=== PATIENT | female | born 1940 | race Caucasian/White ===

== ENCOUNTER 2017-04-18 12:43 | Inpatient (IN) | payer MEDICARE ==
[~2017-04-18 12:43] MED LIST: BREVIBLOC 100 MG/10 ML IV ONE; DIPRIVAN 200 MG/20 ML IV ONE; MORPHINE SULFATE 10 MG/ML IV ONE; PHENYLEPHRINE HCL IV ONE; Quelicin Fliptop 200 MG/10 ML IV ONE; SUBLIMAZE 100 MCG/2 ML IV ONE; Zemuron 100 MG/10 ML IV ONE
[2017-04-18] MEDS ORDERED: Sodium Chloride 0.9% 1000 ML 1,000 ML IV STA (13:27)
--- NOTE | 2017-04-18 13:33 | ERPHSYRPT ---
- History of Present Illness Time Seen by Provider: 04/18/17 13:29 Historian: patient, family Exam Limitations: no limitations Physician History: mild diffuse abdominal cramps nonrad and urinary frequency, released from [facility] today for dehydration and uti, no fever, lives alone, not dizzy, not dm Timing/Duration: yesterday Activities at Onset: rest Quality: aching, cramping Abdominal Pain Onset Location: generalized abdomen Allergies/Adverse Reactions: Penicillins Allergy (Verified 04/18/17 13:51) Sulfa (Sulfonamide Antibiotics) Allergy (Verified 04/18/17 13:51) Home Medications: Alendronate Sodium 70 mg [Fosamax 70 MG] 70 mg PO Q7D@0600 04/18/17 [ History] Alprazolam 0.25 mg [xanAX 0.25 MG] 0.5 mg PO TID 04/18/17 [History] Aspirin 81 gm Chew [Baby Aspirin 81 mg Chew] 81 mg PO DAILY 04/18/17 [ History] Calcium [Hi-Oscar] 600 mg PO DAILY 04/18/17 [History] Diclofenac Sodium/Misoprostol* [Arthrotec 50 Tablet EC] 50 mg PO TID [History] Enalapril Maleate 10 mg [Vasotec 10 MG] 10 mg PO DAILY 04/18/17 [History] Glucosamine/MSM/Chondroitin A [Krsischmfdf-Puqfh-KOZ Caplet] 1 each PO DAILY [History] Metoprolol Succinate 50 mg [Toprol Xl 50 MG] 50 mg PO DAILY 04/18/17 [ History] Mirtazapine 30 mg [Remeron 30 mg] 15 mg PO DAILY 04/18/17 [History] [place]-3 Fatty Acids/Fish Oil [Fish Oil 1,000 mg Capsule] 1,000 mg PO DAILY 04/18/17 [History] PANTOPRAZOLE 40 mg Tablet [Protonix 40MG Tablet] 40 mg PO BID 04/18/17 [ History] Pravastatin Sodium [Pravachol] 40 mg PO DAILY 04/18/17 [History] - Review of Systems Constitutional: Fatigue, No Fever Eyes: No No Symptoms Ears, Nose, & Throat: No Symptoms Respiratory: No Symptoms Cardiac: No Symptoms Abdominal/Gastrointestinal: Abdominal Pain, Nausea, Vomiting, Diarrhea Skin: No Symptoms Neurological: No Dizziness Psychological: No Symptoms - Past Medical History Pertinent Past Medical History: Yes - Nursing Vital Signs Nursing Vital Signs: Initial Vital Signs Temperature 97.5 F 04/18/17 13:08 Pulse Rate 120 H 04/18/17 13:08 Respiratory Rate 22 04/18/17 13:08 Blood Pressure 145/71 04/18/17 13:08 O2 Sat by Pulse Oximetry 89 L 04/18/17 13:08 Pain Scale Pain Intensity 0 - Physical Exam General Appearance: no apparent distress Eye Exam: PERRL/EOMI Ears, Nose, Throat Exam: dry mucous membranes Neck Exam: normal inspection Respiratory Exam: normal breath sounds Cardiovascular Exam: regular rate/rhythm Gastrointestinal/Abdomen Exam: soft, tenderness, No distention, No rebound Extremity Exam: normal inspection Neurologic Exam: alert, oriented x 3, cooperative Skin Exam: normal color, warm, dry - Course Nursing assessment & vital signs reviewed: Yes EKG Interpreted by Me: Other (st 120) - CT Exams Abdomen/Pelvis CT Interpretation: Discussed w/radiologist, Other (appendicitis) Ordered Tests: Active Orders 24 hr Category Date Time Status Bedrest ROUTINE Activity 04/18/17 15:35 Ordered Admission/Status Order ROUTINE Care 04/18/17 15:33 Ordered Call Admit Doctor for Orders ON ADMISSION Care 04/18/17 15:35 Ordered Rim Roller Operator STAT Care 04/18/17 14:13 Active Code Status Order ROUTINE Care 04/18/17 15:33 Ordered EKG-ER Only STAT Care 04/18/17 13:27 Active IV Care Q6H Care 04/18/17 15:33 Ordered IV Insertion STAT Care 04/18/17 13:27 Active Consult Ortho ROUTINE Cons 04/18/17 15:33 Ordered NPO Diet 04/18/17 15:30 Active ABDOMEN AND PELVIS W/0 CONTRAS [CT] Stat Exams 04/18/17 13:27 Taken CHEST 1 VIEW (PORTABLE) Stat Exams 04/18/17 13:27 Taken BLOOD CULTURE Stat Lab 04/18/17 13:30 Ordered CBC W DIFF Stat Lab 04/18/17 13:35 Completed CMP Routine Lab 04/18/17 13:35 Completed LIPASE Routine Lab 04/18/17 13:35 Completed Lactic Acid Stat Lab 04/18/17 13:35 Results Manual Differential NC Stat Lab 04/18/17 13:35 Completed TROPONIN Q3H Lab 04/18/17 13:35 Completed TROPONIN Q3H Lab 04/18/17 16:30 Ordered TROPONIN Q3H Lab 04/18/17 19:30 Ordered TROPONIN Q3H Lab 04/18/17 22:30 Ordered TROPONIN Q3H Lab 04/19/17 01:30 Ordered UA W/ MICROSCOPIC Stat Lab 04/18/17 14:00 Completed Medication Summary Generic Name Dose Route Start Last Admin Trade Name Freq PRN Reason Stop Dose Admin Levofloxacin/Dextrose 500 mg in 100 mls @ 100 mls/hr 04/18/17 15:26 Levofloxacin 500mg/100ml D5w IV 04/18/17 16:25 STAT ONE Sodium Chloride 1,000 mls @ 100 mls/hr 04/18/17 15:45 Sodium Chloride 0.9% 1000 Ml IV 05/18/17 15:44 .Q10H CARLITOS Discontinued Medications Generic Name Dose Route Start Last Admin Trade Name Freq PRN Reason Stop Dose Admin Sodium Chloride 1,000 mls @ 999 mls/hr 04/18/17 13:27 04/18/17 13:59 Sodium Chloride 0.9% 1000 Ml IV 04/18/17 14:27 999 mls/hr .Q1H1M STA Administration Sodium Chloride Confirm 04/18/17 13:54 Sodium Chloride 0.9% 1000 Ml Administered 04/18/17 13:55 Dose 1,000 mls @ ud .ROUTE .STK-MED ONE Sodium Chloride Confirm 04/18/17 15:27 Sodium Chloride 0.9% 1000 Ml Administered 04/18/17 15:28 Dose 1,000 mls @ ud .ROUTE .STK-MED ONE Levofloxacin/Dextrose Confirm 04/18/17 15:30 Levofloxacin 500mg/100ml D5w Administered 04/18/17 15:31 Dose 500 mg in 100 mls @ ud IV .STK-MED ONE Lab/Rad Data: Laboratory Result Diagrams 04/18/17 13:35 04/18/17 13:35 Laboratory Results 04/18/17 04/18/17 04/18/17 Range/Units 14:00 13:35 13:35 WBC (4.0-10.5) K/mm3 RBC (4.1-5.4) M/mm3 Hgb (12.0-16.0) gm/dl Hct (35-47) % MCV (78-100) fl MCH (26-32) pg MCHC (32-36) g/dl RDW (11.5-14.0) % Plt Count (150-450) K/mm3 MPV (6-9.5) fl Segmented Neutrophils (36.0-66.0) % Band Neutrophils (0.0-2.0) % Lymphocytes (Manual) (24-44) % Monocytes (Manual) (0.0-12.0) % Differential Comment Toxic Granulation Platelet Estimate (NORMAL) Polychromasia Sodium 140 (136-145) mEq/L Potassium 4.2 (3.5-5.1) mEq/L Chloride 105 (98-107) mEq/L Carbon Dioxide 26.2 (21-32) mEq/L Anion Gap 13.2 (5-15) MEQ/L BUN 13 (9-20) mg/dL Creatinine 0.75 (0.55-1.30) mg/dl Estimated GFR > 60 ML/MIN Glucose 146 H (70-110) MG/DL Lactic Acid 2.0 (0.4-2.0) Calcium 8.5 (8.5-10.1) mg/dL Total Bilirubin 0.60 (0.2-1.0) mg/dL AST 33 (15-37) U/L ALT 21 (12-78) U/L Alkaline Phosphatase 126 H (46-116) U/L Troponin I < 0.017 (0.000-0.056) ng/ml Serum Total Protein 5.0 L (6.4-8.2) gm/dL Albumin 2.0 L (3.4-5.0) g/dL Lipase 103 (73-393) U/L Ur Collection Type CCMS Urine Color YELLOW (YELLOW) Urine Appearance HAZY (CLEAR) Urine pH 5.0 (5-6) Ur Specific [place] 1.015 (1.005-1.025) Urine Protein NEGATIVE (Negative) Urine Ketones NEGATIVE (NEGATIVE) Urine Blood 50 (0-5) Jose/ul Urine Nitrite NEGATIVE (NEGATIVE) Urine Bilirubin NEGATIVE (NEGATIVE) Urine Urobilinogen NORMAL (0-1) mg/dL Ur Leukocyte Esterase NEGATIVE (NEGATIVE) Urine Microscopic RBC 0-2 (0-2) /HPF Ur Epithelial Cells FEW (FEW) /HPF Urine Culture Reflexed NO (NO) Urine Glucose 50 (NEGATIVE) mg/dL Specimen Received 1400 04/18/17 04/18/17 Range/Units 13:35 WBC 19.2 H (4.0-10.5) K/mm3 RBC 3.43 L (4.1-5.4) M/mm3 Hgb 10.5 L (12.0-16.0) gm/dl Hct 29.9 L (35-47) % MCV 87.2 (78-100) fl MCH 30.6 (26-32) pg MCHC 35.1 (32-36) g/dl RDW 13.4 (11.5-14.0) % Plt Count 322 (150-450) K/mm3 MPV 9.2 (6-9.5) fl Segmented Neutrophils 79 H (36.0-66.0) % Band Neutrophils 8 H (0.0-2.0) % Lymphocytes (Manual) 9 L (24-44) % Monocytes (Manual) 4 (0.0-12.0) % Differential Comment ABNORMAL Toxic Granulation 3+ Platelet Estimate NORMAL (NORMAL) Polychromasia 2+ Sodium (136-145) mEq/L Potassium (3.5-5.1) mEq/L Chloride (98-107) mEq/L Carbon Dioxide (21-32) mEq/L Anion Gap (5-15) MEQ/L BUN (9-20) mg/dL Creatinine (0.55-1.30) mg/dl Estimated GFR ML/MIN Glucose (70-110) MG/DL Lactic Acid (0.4-2.0) Calcium (8.5-10.1) mg/dL Total Bilirubin (0.2-1.0) mg/dL AST (15-37) U/L ALT (12-78) U/L Alkaline Phosphatase (46-116) U/L Troponin I (0.000-0.056) ng/ml Serum Total Protein (6.4-8.2) gm/dL Albumin (3.4-5.0) g/dL Lipase (73-393) U/L Ur Collection Type Urine Color (YELLOW) Urine Appearance (CLEAR) Urine pH (5-6) Ur Specific [place] (1.005-1.025) Urine Protein (Negative) Urine Ketones (NEGATIVE) Urine Blood (0-5) Jose/ul Urine Nitrite (NEGATIVE) Urine Bilirubin (NEGATIVE) Urine Urobilinogen (0-1) mg/dL Ur Leukocyte Esterase (NEGATIVE) Urine Microscopic RBC (0-2) /HPF Ur Epithelial Cells (FEW) /HPF Urine Culture Reflexed (NO) Urine Glucose (NEGATIVE) mg/dL Specimen Received - Progress Progress: unchanged Progress Note: 04/18/17 15:38 d/w Dr Blevins Discussed with DrAnny: Jerry Will see patient in: hospital (observation) - Departure Time of Disposition: 15:39 Departure Disposition: Observation Clinical Impression: Appendicitis Qualifiers: Appendicitis type: acute appendicitis Acute appendicitis type: unspecified acute appendicitis type Qualified Code(s): K35.80 - Unspecified acute appendicitis Condition: Stable Critical Care Time: No
[2017-04-18 13:44] LABS: Mean Cell Volume 87.2 fl (78-100); Mean Corpuscular Hemoglobin 30.6 pg (26-32); Mean Platelet Volume 9.2 fl (6-9.5); Platelet Count 322 K/mm3 (150-450); Red Blood Count 3.43 M/mm3 (4.1-5.4); Red Cell Distribution Width 13.4 % (11.5-14.0); White Blood Count 19.2 K/mm3 (4.0-10.5)
[2017-04-18] MEDS ORDERED: Sodium Chloride 0.9% 1000 ML 1,000 ML ONE ×2 (13:54→15:27)
[2017-04-18 14:02] LABS: ALKALINE PHOSPHATASE 126 U/L (46-116); ANION GAP 13.2 MEQ/L (5-15); BLOOD UREA NITROGEN 13 mg/dL (9-20); CHLORIDE 105 mEq/L (98-107); Carbon Dioxide 26.2 mEq/L (21-32); Glucose 146 MG/DL (70-110); LIPASE 103 U/L (73-393); Potassium 4.2 mEq/L (3.5-5.1); SGOT/AST 33 U/L (15-37); SGPT/ALT 21 U/L (12-78); SODIUM 140 mEq/L (136-145)
[2017-04-18 14:08] LABS: TROPONIN < 0.017 ng/ml (0.000-0.056)
[2017-04-18 14:12] LABS: BAND 8 % (0.0-2.0); Platelet Estimate NORMAL (NORMAL); Polychromasia 2+; Total Cells Counted 100; Toxic Granulation 3+
[2017-04-18 14:14] LABS: Bilirubin NEGATIVE (NEGATIVE); Blood 50 Ery/ul (0-5); COMPLETE URINE MICROSCOPIC? YES; Collection Type CCMS; Glucose 50 mg/dL (NEGATIVE); Leukocyte Esterase NEGATIVE (NEGATIVE)
[2017-04-18 14:22] LABS: Epithelial Cells FEW /HPF (FEW)
[2017-04-18 14:35] LABS: ADD URINE CULTURE? NO (NO)
[2017-04-18] MEDS ORDERED: Levofloxacin 500MG/100ML D5W 500 MG/100 ML BAG IV ONE ×2 (15:26→15:30)
[2017-04-18] MEDS ORDERED: Sodium Chloride 0.9% 1000 ML 1,000 ML IV SCH (15:45)
[2017-04-18] MEDS ORDERED: Lactated Ringers 1,000 ML IV ONE (15:56)
[2017-04-18] MEDS ORDERED: CLINDAMYCIN-D5W 900 MG/50 ML*** 900 MG/50 ML BAG IV ONE (15:56)
[2017-04-18] MEDS ORDERED: PROVENTIL 2.5 MG/3 ML NEB IH ONE ×2 (15:59→16:07)
[2017-04-18] MEDS ORDERED: FLAGYL 500 MG IVPB 500 MG/100 ML BAG IV ONE (16:23)
[2017-04-18] MEDS ORDERED: Sodium Chloride 0.9% 250 ML 250 ML IV ONE ×2 (17:03→18:50)
[2017-04-18] MEDS ORDERED: Sensorcaine 0.25% 10 ML ONE (17:23)
[2017-04-18 18:34] LABS: A-aADO2 526; ARTERIAL BLD GAS O2 SATURATION 98.6 % (95-100); ARTERIAL BLOOD GAS BASE EXCESS -4.4 (-2.0-2.0); ARTERIAL BLOOD GAS FIO2 100 %; ARTERIAL BLOOD GAS PO2 112 mmHg (75-100); ARTERIAL BLOOD GAS pH 7.21 (7.35-7.45)
[2017-04-18] MEDS ORDERED: Sodium Chloride 0.9% 500 ML 500 ML IV ONE (18:55)
[2017-04-18 19:17] LABS: A-aADO2 565; ARTERIAL BLD GAS O2 SATURATION 98.3 % (95-100); ARTERIAL BLOOD GAS BASE EXCESS 0.8 (-2.0-2.0); ARTERIAL BLOOD GAS FIO2 100 %; ARTERIAL BLOOD GAS PO2 89 mmHg (75-100); ARTERIAL BLOOD GAS pH 7.36 (7.35-7.45)
[2017-04-18 20:42] LABS: A-aADO2 602; ARTERIAL BLD GAS O2 SATURATION 96.6 % (95-100); ARTERIAL BLOOD GAS BASE EXCESS -0.8 (-2.0-2.0); ARTERIAL BLOOD GAS FIO2 100 %; ARTERIAL BLOOD GAS PO2 66 mmHg (75-100); ARTERIAL BLOOD GAS pH 7.42 (7.35-7.45)
[2017-04-18 20:51] LABS: Mean Cell Volume 88.2 fl (78-100); Mean Corpuscular Hemoglobin 30.9 pg (26-32); Mean Platelet Volume 9.5 fl (6-9.5); Platelet Count 326 K/mm3 (150-450); Red Cell Distribution Width 13.6 % (11.5-14.0)
[2017-04-18 21:01] LABS: White Blood Count 38.6 K/mm3 (4.0-10.5)
[2017-04-18 21:02] LABS: ALBUMIN 1.3 g/dL (3.4-5.0); ALKALINE PHOSPHATASE 96 U/L (46-116); ANION GAP 11.7 MEQ/L (5-15); CHLORIDE 110 mEq/L (98-107); Carbon Dioxide 23.4 mEq/L (21-32); Glucose 146 MG/DL (70-110); MAGNESIUM 1.6 mg/dL (1.8-2.4); SGOT/AST 28 U/L (15-37); SGPT/ALT 17 U/L (12-78); SODIUM 141 mEq/L (136-145)
[2017-04-18] MEDS ORDERED: Merrem 1 GM IV ONE (21:08)
[2017-04-18] MEDS ORDERED: Sodium Chloride 0.9% 100 ML IVPB 100 ML IV ONE (21:08)
[2017-04-18] MEDS ORDERED: D5W/0.45NS W/ 20mEq KCl 1000 ML 1,000 ML IV ONE (21:09)
[2017-04-18] MEDS ORDERED: MORPHINE SULFATE 2 MG INJ ONE (21:13)
[2017-04-18] MEDS ORDERED: Merrem 1 GM 1 G in Sodium Chloride 100ML MINI-BAG PLUS 100 ML IV ONE (21:15)
[2017-04-18] MEDS: MORPHINE SULFATE 2 MG INJ IV PRN (21:21)
[2017-04-18 21:46] LABS: BLOOD UREA NITROGEN 16 mg/dL (9-20)
--- NOTE | 2017-04-18 22:09 | XRAY ---
Indication: Nausea and vomiting. Comparison: None Portable chest demonstrates small bibasilar infiltrates/atelectasis/effusions and medial right apical pleural thickening/effusion. Heart is not enlarged. Bony thorax intact.
--- NOTE | 2017-04-18 22:17 | XRAY ---
Indication: Nausea and vomiting. Multiple contiguous axial images obtained through the abdomen and pelvis without contrast as ordered. Comparison: None Lung bases demonstrate small bibasilar effusions with adjacent mild compressive atelectasis. Heart is not enlarged with mild/moderate pericardial effusion. Small hiatal hernia. Noncontrasted stomach and bowel loops appear nonobstructed. Descending duodenum demonstrates circumferential wall thickening with mild stranding favoring duodenitis. The appendix is prominent up to 10 mm with mild periappendiceal stranding and small appendicolith favoring acute appendicitis. Adjacent small bowel loops demonstrates mild fluid distention with some fluid synchronous leveling probably reactive ileus. Scattered descending diverticulosis. Small cul-de-sac fluid. No walled off fluid collection or free air. Gallbladder demonstrates tiny gravel/sludge. Remaining liver, pancreas, spleen, adrenal glands, kidneys, ureters, bladder, and uterus appear unremarkable for noncontrast exam. Mild aortoiliac calcifications without AAA. Osseous structures intact with minimal dextroscoliosis centered at L1. Impression: 1. CT findings favoring acute appendicitis as detailed. Small cul-de-sac fluid and adjacent small bowel ileus probably related. 2. Descending duodenitis. 3. Colonic diverticulosis. 4. Gallbladder gravel/sludge better evaluated with ultrasound. 5. Small hiatal hernia. 6. Bibasilar pleural effusions with adjacent atelectasis. 7. Abnormal pericardial effusion. Echocardiogram may yield further information. Comment: Preliminary interpretation was made by [facility]. No discrepancy. CTDI 15.99
[2017-04-18] MEDS ORDERED: Sodium Chloride 0.9% W/ 20 mEq KCl/LITER 1,000 ML IV SCH ×2 (22:45)
[2017-04-18] MEDS ORDERED: PROTONIX 40 MG IV IV SCH (22:45)
[2017-04-18 22:57] LABS: Platelet Estimate NORMAL (NORMAL); Total Cells Counted 100
[2017-04-18] MEDS ORDERED: Magnesium Sulfate 1 GM/2 ML VIAL IV ONE (23:00)
[2017-04-18] MEDS ORDERED: D5W/0.45NS W/ 20mEq KCl 1000 ML 1,000 ML IV SCH (23:00)
[2017-04-18] MEDS: MORPHINE SULFATE 4 MG INJ IV PRN (23:07)
[2017-04-18] MEDS ORDERED: Magnesium 1 Gm / 100 Ml D5W*** 200 ML IV ONE (23:14)
[2017-04-18] MEDS: Magnesium 1 Gm / 100 Ml D5W*** 100 ML IV SCH (23:23)
[2017-04-19] MEDS: Magnesium 1 Gm / 100 Ml D5W*** 100 ML IV SCH (00:03)
[2017-04-19] MEDS: FLAGYL 500 MG IVPB 500 MG/100 ML BAG IV SCH ×4 (00:36→23:07)
[2017-04-19] MEDS ORDERED: Sodium Chloride 0.9% 500 ML 500 ML IV ONE ×2 (01:45→08:51)
[2017-04-19] MEDS ORDERED: LEVOPHED 4 MG/4 ML 4,000 MCG in Dextrose 5%/Water IV Soln. 500 ML 500 ML IV PRN (01:53)
[2017-04-19] MEDS ORDERED: Sodium Chloride 0.9% 1000 ML 1,000 ML IV STA (01:57)
[2017-04-19] MEDS: MORPHINE SULFATE 4 MG INJ IV PRN ×4 (03:50→15:16)
[2017-04-19 05:41] LABS: Mean Cell Volume 89.1 fl (78-100); Mean Platelet Volume 9.4 fl (6-9.5); Platelet Count 300 K/mm3 (150-450); Red Blood Count 3.03 M/mm3 (4.1-5.4); Red Cell Distribution Width 13.9 % (11.5-14.0)
[2017-04-19 05:50] LABS: VBG BASE EXCESS -2.9 (-2.0-2.0); VBG CARBOXYHEMOGLOBIN 1.7 % T HGB (0.0-6.9); VBG HCO3- 23.2 meq/L (22-28); VBG HEMOGLOBIN 9.6; VBG O2 SATURATION 65.3 (95-100); VBG POTASSIUM 5.5 (3.5-5.1); VBG pH 7.32 (7.32-7.42)
[2017-04-19 05:53] LABS: Mean Corpuscular Hemoglobin 30.6 pg (26-32); White Blood Count 28.5 K/mm3 (4.0-10.5)
[2017-04-19 06:37] LABS: CHLORIDE 107 mEq/L (98-107); SODIUM 136 mEq/L (136-145)
[2017-04-19 06:39] LABS: BAND 14 % (0.0-2.0); Platelet Estimate NORMAL (NORMAL); Polychromasia 1+; Total Cells Counted 100; Toxic Granulation 3+
[2017-04-19 06:40] LABS: ALBUMIN 1.2 g/dL (3.4-5.0); BLOOD UREA NITROGEN 15 mg/dL (9-20); Glucose 461 MG/DL (70-110); Total Protein 3.9 gm/dL (6.4-8.2)
[2017-04-19 06:41] LABS: ALKALINE PHOSPHATASE 82 U/L (46-116); Carbon Dioxide 22.4 mEq/L (21-32); SGOT/AST 18 U/L (15-37); SGPT/ALT 20 U/L (12-78)
[2017-04-19 06:42] LABS: ANION GAP 10.8 MEQ/L (5-15)
[2017-04-19] MEDS ORDERED: Dextrose 5% -0.45 NaCl 1000 ML 1,000 ML IV SCH (07:00)
[2017-04-19] MEDS ORDERED: NORCO 5/325 MG PO PRN (07:18)
[2017-04-19] MEDS: PROTONIX 40 MG IV IV SCH ×2 (08:15→21:42)
--- NOTE | 2017-04-19 08:31 | PCM.NOTE ---
Date and Time: 04/19/17825 Subjective Assessment: Ms. Cool is more alert today. She has the bipap on but still able to communicate with me that she feels like she needs to urinate and when I asked her about a nicotine patch, she told me she had one on her left arm already. This is dated 04/17/17 so would be from [facility]. I was called with a critical potassium this AM but her Cr was normal and I asked them to redraw it out of the arm that does not have the IV fluids running and when this was done, her potassium was normal. We have have now asked them to rerun the whole BMP because her blood glucoses was high on this first lab draw that had the high potassium that is not true. She was started on levophed overnight for hypotension. - Review of Systems Constitutional: No Symptoms Eyes: No Symptoms Ears, Nose, & Throat: No Symptoms Respiratory: Short Of Breath Cardiac: No Symptoms Abdominal/Gastrointestinal: Abdominal Pain Genitourinary Symptoms: Other (feels like she needs to urinate) Musculoskeletal: No Symptoms Skin: No Symptoms Objective Exam General Appearance: other (On BIPAP, alert, looking around, able to talk a little with the bipap on) Neurologic Exam: alert, cooperative Skin Exam: normal color, warm, dry, other (two IV's in her right arm), No rash Respiratory Exam: other (Clear when ausculated anteriorly) Cardiovascular Exam: other (tachycardic), No murmur, No friction rub, No gallop Gastrointestinal/Abdomen Exam: other (binder in place, no bowel sounds, tender to palpation) Extremity Exam: normal inspection, other (no c/c/e) OBJECTIVE DATA Vital Signs: Vital Signs - 24 hr Temp Pulse Resp BP Pulse Ox 04/19/17 07:16 113 H 24 98 04/19/17 06:00 111 H 83/38 04/19/17 05:00 115 H 22 88/48 96 04/19/17 04:00 97.7 F 113 H 22 98/39 100 04/19/17 02:00 98.1 F 113 H 22 82/47 99 04/19/17 01:00 118 H 87/51 04/19/17 00:01 114 H 04/19/17 00:00 114 H 84/43 98 04/18/17 23:00 120 H 24 91/63 98 04/18/17 22:50 97.7 F 115 H 23 115/50 84 L 04/18/17 22:00 97.8 F 114 H 24 119/55 100 04/18/17 20:40 111 H 26 H 97/40 97 04/18/17 20:00 97.7 F 115 H 23 115/50 84 L 04/18/17 16:06 102 H 28 H 97 04/18/17 16:00 98.0 F 112 H 20 130/84 95 04/18/17 15:46 97.9 F 112 H 20 95 04/18/17 15:02 112 H 20 144/84 95 04/18/17 14:14 117 H 22 148/90 95 04/18/17 13:08 97.5 F 120 H 22 145/71 89 L Oxygen-Last 24 hours O2 Percentage 100% O2 Percentage 100% O2 Percentage 100% O2 Percentage 100% O2 Percentage 100% O2 Percentage 100% O2 Percentage 100% O2 Percentage 100% O2 Percentage 100% O2 Percentage 100% O2 Percentage 2 Liters = 28% O2 Percentage 2 Liters = 28% O2 Percentage 2 Liters = 28% O2 Percentage 2 Liters = 28% Pain Assessment - Last Documented Pain Intensity 9 Pain Scale Used 0-10 Pain Scale Intake and Output: Intake & Output 04/17/17 04/18/17 04/19/17 04/20/17 06:59 06:59 06:59 06:59 Intake Total 2100 Output Total 625 Balance 1475 Weight 73.573 kg Lab Results: Lab Results-Last 24 Hours 04/18/17 04/18/17 04/18/17 Range/Units 20:40 20:40 20:40 WBC 38.6 H* (4.0-10.5) K/mm3 RBC 3.30 L (4.1-5.4) M/mm3 Hgb 10.2 L (12.0-16.0) gm/dl Hct 29.1 L (35-47) % MCV 88.2 (78-100) fl MCH 30.9 (26-32) pg MCHC 35.1 (32-36) g/dl RDW 13.6 (11.5-14.0) % Plt Count 326 (150-450) K/mm3 MPV 9.5 (6-9.5) fl Segmented Neutrophils 89 H (36.0-66.0) % Band Neutrophils (0.0-2.0) % Lymphocytes (Manual) 8 L (24-44) % Monocytes (Manual) 3 (0.0-12.0) % Differential Comment NORMAL Toxic Granulation Platelet Estimate NORMAL (NORMAL) Polychromasia Smear Path Review Pending Puncture Site pCO2 (35-45) mmHg pO2 (75-100) mmHg Base Excess (-2.0-2.0) O2 Saturation (94-100) g/dF ABG pH (7.35-7.45) ABG HCO3 (22-28) ABG O2 Sat (Measured) (95-100) % Fox Test VBG pH (7.32-7.42) VBG pCO2 at Pat Temp (42-55) mm/Hg VBG pO2 at Pat Temp (25-40) mm/Hg VBG HCO3 (22-28) meq/L VBG O2 Sat (Tran) (95-100) VBG Base Excess (-2.0-2.0) VBG Hemoglobin VBG Carboxyhemoglobin (0.0-6.9) % T HGB A-a Gradient a/A Ratio Hemoglobin Carboxyhemoglobin (0.0-6.9) % THgb Methemoglobin (1.4-1.5) % POC Potassium (3.5-5.1) Temperature C POC O2 Flow Rate % Sodium 141 (136-145) mEq/L Potassium 4.0 (3.5-5.1) mEq/L Chloride 110 H (98-107) mEq/L Carbon Dioxide 23.4 (21-32) mEq/L Anion Gap 11.7 (5-15) MEQ/L BUN 16 (9-20) mg/dL Creatinine 0.75 (0.55-1.30) mg/dl Estimated GFR > 60 ML/MIN Glucose 146 H (70-110) MG/DL Lactic Acid (0.4-2.0) Calcium 7.3 L (8.5-10.1) mg/dL Magnesium 1.6 L (1.8-2.4) mg/dL Total Bilirubin 0.50 (0.2-1.0) mg/dL AST 28 (15-37) U/L ALT 17 (12-78) U/L Alkaline Phosphatase 96 (46-116) U/L Troponin I < 0.017 (0.000-0.056) ng/ml NT-Pro-B Natriuret Pep (0-125) pg/ml Serum Total Protein 4.0 L (6.4-8.2) gm/dL Albumin 1.3 L (3.4-5.0) g/dL Prealbumin 04/18/17 04/18/17 04/19/17 Range/Units 20:41 23:30 02:30 WBC (4.0-10.5) K/mm3 RBC (4.1-5.4) M/mm3 Hgb (12.0-16.0) gm/dl Hct (35-47) % MCV (78-100) fl MCH (26-32) pg MCHC (32-36) g/dl RDW (11.5-14.0) % Plt Count (150-450) K/mm3 MPV (6-9.5) fl Segmented Neutrophils (36.0-66.0) % Band Neutrophils (0.0-2.0) % Lymphocytes (Manual) (24-44) % Monocytes (Manual) (0.0-12.0) % Differential Comment Toxic Granulation Platelet Estimate (NORMAL) Polychromasia Smear Path Review Puncture Site LINE pCO2 36 (35-45) mmHg pO2 66 L (75-100) mmHg Base Excess -0.8 (-2.0-2.0) O2 Saturation 93.8 L (94-100) g/dF ABG pH 7.42 (7.35-7.45) ABG HCO3 23.4 (22-28) ABG O2 Sat (Measured) 96.6 (95-100) % Fox Test NOT APPLICABLE VBG pH (7.32-7.42) VBG pCO2 at Pat Temp (42-55) mm/Hg VBG pO2 at Pat Temp (25-40) mm/Hg VBG HCO3 (22-28) meq/L VBG O2 Sat (Tran) (95-100) VBG Base Excess (-2.0-2.0) VBG Hemoglobin VBG Carboxyhemoglobin (0.0-6.9) % T HGB A-a Gradient 602 a/A Ratio 0.10 Hemoglobin 10.7 Carboxyhemoglobin 1.5 (0.0-6.9) % THgb Methemoglobin 1.4 (1.4-1.5) % POC Potassium (3.5-5.1) Temperature 37.0 C POC O2 Flow Rate 100 % Sodium (136-145) mEq/L Potassium 4.1 (3.5-5.1) mEq/L Chloride (98-107) mEq/L Carbon Dioxide (21-32) mEq/L Anion Gap (5-15) MEQ/L BUN (9-20) mg/dL Creatinine (0.55-1.30) mg/dl Estimated GFR ML/MIN Glucose (70-110) MG/DL Lactic Acid (0.4-2.0) Calcium (8.5-10.1) mg/dL Magnesium (1.8-2.4) mg/dL Total Bilirubin (0.2-1.0) mg/dL AST (15-37) U/L ALT (12-78) U/L Alkaline Phosphatase (46-116) U/L Troponin I < 0.017 < 0.017 (0.000-0.056) ng/ml NT-Pro-B Natriuret Pep (0-125) pg/ml Serum Total Protein (6.4-8.2) gm/dL Albumin (3.4-5.0) g/dL Prealbumin 04/19/17 04/19/17 04/19/17 Range/Units 05:25 05:25 05:25 WBC 28.5 H* (4.0-10.5) K/mm3 RBC 3.03 L (4.1-5.4) M/mm3 Hgb 9.3 L (12.0-16.0) gm/dl Hct 27.0 L (35-47) % MCV 89.1 (78-100) fl MCH 30.6 (26-32) pg MCHC 34.4 (32-36) g/dl RDW 13.9 (11.5-14.0) % Plt Count 300 (150-450) K/mm3 MPV 9.4 (6-9.5) fl Segmented Neutrophils 81 H (36.0-66.0) % Band Neutrophils 14 H (0.0-2.0) % Lymphocytes (Manual) 3 L (24-44) % Monocytes (Manual) 2 (0.0-12.0) % Differential Comment ABNORMAL Toxic Granulation 3+ Platelet Estimate NORMAL (NORMAL) Polychromasia 1+ Smear Path Review Puncture Site pCO2 (35-45) mmHg pO2 (75-100) mmHg Base Excess (-2.0-2.0) O2 Saturation (94-100) g/dF ABG pH (7.35-7.45) ABG HCO3 (22-28) ABG O2 Sat (Measured) (95-100) % Fox Test VBG pH (7.32-7.42) VBG pCO2 at Pat Temp (42-55) mm/Hg VBG pO2 at Pat Temp (25-40) mm/Hg VBG HCO3 (22-28) meq/L VBG O2 Sat (Tran) (95-100) VBG Base Excess (-2.0-2.0) VBG Hemoglobin VBG Carboxyhemoglobin (0.0-6.9) % T HGB A-a Gradient a/A Ratio Hemoglobin Carboxyhemoglobin (0.0-6.9) % THgb Methemoglobin (1.4-1.5) % POC Potassium (3.5-5.1) Temperature C POC O2 Flow Rate % Sodium 136 (136-145) mEq/L Potassium 6.0 H* (3.5-5.1) mEq/L Chloride 107 (98-107) mEq/L Carbon Dioxide 22.4 (21-32) mEq/L Anion Gap 10.8 (5-15) MEQ/L BUN 15 (9-20) mg/dL Creatinine 0.94 (0.55-1.30) mg/dl Estimated GFR > 60 ML/MIN Glucose 461 H (70-110) MG/DL Lactic Acid (0.4-2.0) Calcium 6.8 L (8.5-10.1) mg/dL Magnesium (1.8-2.4) mg/dL Total Bilirubin 0.50 (0.2-1.0) mg/dL AST 18 (15-37) U/L ALT 20 (12-78) U/L Alkaline Phosphatase 82 (46-116) U/L Troponin I (0.000-0.056) ng/ml NT-Pro-B Natriuret Pep 2121 H (0-125) pg/ml Serum Total Protein 3.9 L (6.4-8.2) gm/dL Albumin 1.2 L (3.4-5.0) g/dL Prealbumin 04/19/17 04/19/17 04/19/17 Range/Units 05:40 05:49 06:49 WBC (4.0-10.5) K/mm3 RBC (4.1-5.4) M/mm3 Hgb (12.0-16.0) gm/dl Hct (35-47) % MCV (78-100) fl MCH (26-32) pg MCHC (32-36) g/dl RDW (11.5-14.0) % Plt Count (150-450) K/mm3 MPV (6-9.5) fl Segmented Neutrophils (36.0-66.0) % Band Neutrophils (0.0-2.0) % Lymphocytes (Manual) (24-44) % Monocytes (Manual) (0.0-12.0) % Differential Comment Toxic Granulation Platelet Estimate (NORMAL) Polychromasia Smear Path Review Puncture Site pCO2 (35-45) mmHg pO2 (75-100) mmHg Base Excess (-2.0-2.0) O2 Saturation (94-100) g/dF ABG pH (7.35-7.45) ABG HCO3 (22-28) ABG O2 Sat (Measured) (95-100) % Fox Test VBG pH 7.32 (7.32-7.42) VBG pCO2 at Pat Temp 45 (42-55) mm/Hg VBG pO2 at Pat Temp 29 (25-40) mm/Hg VBG HCO3 23.2 (22-28) meq/L VBG O2 Sat (Tran) 65.3 L (95-100) VBG Base Excess -2.9 L (-2.0-2.0) VBG Hemoglobin 9.6 VBG Carboxyhemoglobin 1.7 (0.0-6.9) % T HGB A-a Gradient a/A Ratio Hemoglobin Carboxyhemoglobin (0.0-6.9) % THgb Methemoglobin (1.4-1.5) % POC Potassium 5.5 H (3.5-5.1) Temperature C POC O2 Flow Rate % Sodium Pending (136-145) mEq/L Potassium 4.7 (3.5-5.1) mEq/L Chloride Pending (98-107) mEq/L Carbon Dioxide Pending (21-32) mEq/L Anion Gap Pending (5-15) MEQ/L BUN Pending (9-20) mg/dL Creatinine Pending (0.55-1.30) mg/dl Estimated GFR Pending ML/MIN Glucose Pending (70-110) MG/DL Lactic Acid 1.5 (0.4-2.0) Calcium Pending (8.5-10.1) mg/dL Magnesium (1.8-2.4) mg/dL Total Bilirubin (0.2-1.0) mg/dL AST (15-37) U/L ALT (12-78) U/L Alkaline Phosphatase (46-116) U/L Troponin I (0.000-0.056) ng/ml NT-Pro-B Natriuret Pep (0-125) pg/ml Serum Total Protein (6.4-8.2) gm/dL Albumin (3.4-5.0) g/dL Prealbumin Pending Radiology Exams: Radiology Procedures Category Date Time Status ECHO W/2D AND DOPPLER [US] Routine Exams 04/19/17 08:00 Taken Multi-Disciplinary Progress Notes: Multi-Disciplinary Progress Notes 04/19/17 07:13 Pharmacy Note by Martell Traylor REQUEST FOR PHARMACY TO DOSE MERREM CR CL = 39 ML/MIN GIVE MERREM 1 GM Q12H NEL Initialized on 04/19/17 07:13 - END OF NOTE Assessment/Plan (1) S/P appendectomy Current Visit: Yes Status: Acute Assessment & Plan: Continue meropenem and flagyl. Antibiotics confirmed with pharmacist this AM. She received Flagyl on 04/18/17 at 16:23, 04/19/17 at 00:06, 04/19 at 0627 and levofloxacin on 04/18/17 at 15:34, meropenem 04/18/17 at 21:32 and clindamycin during surgery. WBC high with left shift today but lactate normal. Post surgical management per Dr. Conn. Code(s): Z90.49 - ACQUIRED ABSENCE OF OTHER SPECIFIED PARTS OF DIGESTIVE TRACT (2) S/P small bowel resection Current Visit: Yes Status: Acute Code(s): Z90.49 - ACQUIRED ABSENCE OF OTHER SPECIFIED PARTS OF DIGESTIVE TRACT (3) Acute respiratory failure with hypoxia Current Visit: Yes Status: Acute Assessment & Plan: Dr. Joe Josue has been consulted. Continue Bipap. Her oxygen has been weaned from 100% to 80%. She is alert and tolerating bipap well and her last abg looked good. Code(s): J96.01 - ACUTE RESPIRATORY FAILURE WITH HYPOXIA (4) Hypotension Current Visit: Yes Status: Acute Qualifiers: Hypotension type: unspecified hypotension type Qualified Code(s): I95.9 - Hypotension, unspecified Assessment & Plan: She received fluid boluses overnight that seemed to help with her blood pressure but once they were finished infusing, she would have low blood pressure again. I ordered levophed and she is on this at 5 mcg/hr. She is on IV fluids at 75 mL/hour. I will increase this to 100 mL/hr. Will give another 500 mL bolus this AM. (She received 1 L in ER yesterday afternoon and then maintenance fluids according to pharmacist, Abram and 800 mL in OR according to their paper records and 2100 mL in the ICU last night). At this time I am cautious about being more aggressive with her IV fluids due to pericardial effusion and bilat pleural effusions seen on CT scan of her abd/pelvis that she had done in the ER. May be due to infection, dehydration, or s/p surgery. Code(s): I95.9 - HYPOTENSION, UNSPECIFIED (5) Pericardial effusion Current Visit: Yes Status: Acute Assessment & Plan: Dr. Ruiz consulted and Echo ordered for this AM. Code(s): I31.3 - PERICARDIAL EFFUSION (NONINFLAMMATORY) (6) Bilateral pleural effusion Current Visit: Yes Status: Acute Assessment & Plan: Continue to monitor. Code(s): J90 - PLEURAL EFFUSION, NOT ELSEWHERE CLASSIFIED (7) Anemia Current Visit: Yes Status: Acute Qualifiers: Anemia type: unspecified type Qualified Code(s): D64.9 - Anemia, unspecified Assessment & Plan: Continue to monitor daily. Stable at this time. Code(s): D64.9 - ANEMIA, UNSPECIFIED (8) Tobacco abuse Current Visit: Yes Status: Acute Assessment & Plan: Will order nicotine patch. Code(s): Z72.0 - TOBACCO USE (9) COPD (chronic obstructive pulmonary disease) Current Visit: Yes Status: Acute Assessment & Plan: Underlying COPD probably is contributing the acute respiratory failure after surgery. (10) Hyperglycemia Current Visit: Yes Status: Acute Assessment & Plan: Rechecking BMP from blood drawn from arm that IV fluids are not running in. Hgb A1C ordered. Code(s): R73.9 - HYPERGLYCEMIA, UNSPECIFIED (11) Gastric ulcer Current Visit: Yes Status: Acute Assessment & Plan: Continue protonix 40 mg IV q 12 hours. Trying to obtain records from [facility] to confirm location (gastric vs duodenal). Code(s): K25.9 - GASTRIC ULCER, UNSP ACUTE OR CHRONIC, W/O HEMOR OR PERF
[2017-04-19 08:32] LABS: BLOOD UREA NITROGEN 16 mg/dL (9-20); CHLORIDE 105 mEq/L (98-107); Carbon Dioxide 21.8 mEq/L (21-32); Glucose 209 MG/DL (70-110); SODIUM 131 mEq/L (136-145)
[2017-04-19 08:35] LABS: Potassium 4.7 mEq/L (3.5-5.1)
[2017-04-19 08:37] LABS: ANION GAP 8.9 MEQ/L (5-15)
[2017-04-19] MEDS ORDERED: DUONEB 0.5-3 MG/3 ml Neb IH ONE (08:51)
[2017-04-19] MEDS: DUONEB 0.5-3 MG/3 ml Neb IH SCH ×4 (08:55→18:41)
[2017-04-19] MEDS: Merrem 1 GM 1 G in Sodium Chloride 100ML MINI-BAG PLUS 100 ML IV SCH ×2 (09:46→21:41)
[2017-04-19] MEDS: Nicoderm CQ 21 MG TOP SCH (09:46)
--- NOTE | 2017-04-19 11:40 | CONS ---
CONSULT DATE: 04/18/2017 HISTORY: A 76 year-old female had some nausea and vomiting for a week. She has history of prior lung cancer, chronic obstructive pulmonary disease. She had been in recently at [facility]. She does have history of large duodenal ulcers when she was there but she had CT scan with question whether she had developed appendicitis at this point. I was asked to see for surgical consult. She had been admitted by medical physician with all her problems and chronic medical issues. PAST MEDICAL HISTORY: As mentioned above. PAST SURGICAL HISTORY: section x2. Upper endoscopy showed duodenal ulcers, large duodenal to smaller ones and history of some recent bleeding of the ulcers but no active bleeding at time of endoscopy. MEDICATIONS: Includes Protonix, metoprolol, Arthrotec, Alprazolam, fish oil, Alendronate, mirtazapine, Enalapril, Glucosamine, calcium, Pravastatin, aspirin. ALLERGIES: NKDA. FAMILY HISTORY: Negative in regards to this problem. PHYSICAL EXAMINATION: A chronically ill female on nasal O2. HEENT: Sclera nonicteric and she is wearing glasses. NECK: No JVD. CHEST: Equal excursion, steady respiration. CVS: Regular rhythm. ABDOMEN: Soft and mild tenderness lower abdomen and upper abdomen. No peritoneal signs. EXTREMITIES: No significant edema. NEURO: Alert, moving extremities grossly symmetrically. LAB DATA AND TESTS: CT showed appendicolith with appendix measuring 10 mm, small amount of sludge. Radiologist concerned about acute appendicitis. Additionally noticed thickening of duodenum which is consistent with her known ulcer disease. She had some fluid in the bowel and small bowel ileus. No free air. No large abscess. White blood cell count 19,000, hemoglobin 10.5, PLT 322,000. Liver function tests fairly unremarkable. Lipase normal. Lactic acid normal. IMPRESSION: A 76 year-old female with multiple medical problems. She had lung cancer with no surgery but had radiation treatments. She has chronic obstructive pulmonary disease, chronic illnesses. She has known large duodenal ulcer disease diagnosed recently. She had nausea and vomiting. She had some vague abdominal pain. A new CT scan radiologist now concerned about acute appendicitis. I had a long discussion with the patient and family probably proceed with diagnostic laparoscopy, laparoscopic appendectomy possible open when OR time available. Risks and benefits explained in detail but not limited to bleeding or infection, risk of trocar injury or hernia, small risk bowel, bladder or blood vessel injury, small risk of subsequent intra-abdominal abscess or fistula formation possibly requiring other procedure, risk of ileus or obstruction, risk of collection formation possibly requiring percutaneous or open drainage even at a later date, collection or abscess formation possibly requiring percutaneous or open drainage even at a later date, general risk of anesthesia, deep venous thrombosis, pulmonary embolism, pneumonia, perioperative risk of aches, pains, bloating, constipation and/or loose stool. They also understand that a lot of her problems related to ulcer disease and hold her aspirin and arthritis medication, continue on proton pump inhibitor as this disease does not heal overnight as that is a good part of her issues along with her chronic lung disease and pleural effusions, I felt she definitely needs medical admission but I do not feel that her appendix is causing all of these problems but will proceed as explained to the patient and family. If they wish for me to proceed will proceed with diagnostic laparoscopy laparoscopic appendectomy possible open. They understand this may or may not improve any aches or pains as a lot of this is secondary to ileus and secondary to lung issues and duodenal ulcer disease. They understand and agree to the plan. Will proceed with diagnostic laparoscopy with laparoscopic appendectomy possible open when OR time is available.
--- NOTE | 2017-04-19 12:50 | OP ---
SURGERY DATE/TIME: 04/18/2017 1032 PREOPERATIVE DIAGNOSES: 1) Question of acute appendicitis. 2) Known history of recent large duodenal ulcer but no active bleeding. POSTOPERATIVE DIAGNOSES: 1) Duodenal ulcer disease. 2) Perforated portion of appendix with erosion and fistulation to small bowel loops, small bowel loop leaking some stool as well as perforated appendix, some surrounding inflammation and loop abscess requiring small bowel resection along with appendectomy. PROCEDURES: 1) Diagnostic laparoscopy. 2) Open appendectomy with open segment of small bowel resection and phlegmon appeared to be erosion and fistulation of small bowel leaking some stool requiring small bowel resection with primary reanastomosis ileal [id number] primary anastomosis, open appendectomy. SURGEON: Dr. Timothy Blevins. ANESTHESIA: General. ESTIMATED BLOOD LOSS: Less than 75 to 100 cc. INDICATIONS: As noted above. Risks and benefits explained in detail but not limited to. She had known duodenal ulcer. It was felt that a lot of her symptoms were related to that. She had some lower abdominal aches that had been worsened today. CT was done in the emergency room showed appendicolith. The appendix was not that dilated only 8 mm but given the findings it was felt worthwhile to proceed with diagnostic laparoscopy possible open appendectomy. The procedure explained in detail and consent obtained DESCRIPTION OF PROCEDURE AND FINDINGS: The patient was taken to the operating room. General anesthesia was induced. Abdomen prepped and draped in usual sterile fashion. After official time out and no disagreement with the planned procedure, a transverse incision made at supraumbilical area. Fascia grasped and pulled upwards. Veress needle inserted and tested with saline. Pneumoperitoneum accomplished insufflating from opening pressure of 0 to 15. A 5 mm port later right lower 5 mm port in right mid abdomen 12 mm port and using right side ports were placed for better visualization. The small bowel loops fixated around right lower quadrant. There appeared to be interloop abscess at perforated segment of mid portion of appendix encased by small bowel loops and appeared to be some stool leaking from the small bowel loops as well. Copious amount of irrigation and drainage of the infection had been accomplished. EndoGIA stapler fired across the base of the appendix at the cecum. However it was too fixated to allow for any safe proceeding laparoscopically as I feel there is some stool leaking from the small bowel so felt safest to convert to an open procedure therefore lower midline incision was made. Bowel was easily mobilized upward. Appeared to be visualized segment of an abscess cavity that had been leaking some stool. It was felt that this segment would be safest to go ahead and removed. There was an adjacent more distal part of the terminal ileum just a few centimeters away that appeared thickened. Whether there was any inflammatory bowel disease or not, questionable whether this could cause postoperative obstruction or prolonged ileus was felt removing this segment as it would not sacrifice any significant more bowel directly adjacent to the fistulized segment. It was felt that this should be included. Therefore mesentery carefully cleared. EndoGIA stapler fired across the portion of the terminal ileum that appeared to be healthy and viable and normal wall with the other staple proximal bowel prior to the fistulized segment. Mesentery taken down divided and ligated with clamps and Vicryl ties. Small little pin point ooze on the mesentery controlled with 3-0 Vicryl suture ligature with good hemostasis noted. The small bowel segment was passed off and opened on the back table. It did have a communication base of the mesentery with leaking. It was opened through this area. At this point gloves were changed. A [id number] anastomosis created with 3-0 PDS posterior, [id number] staple anastomosis created and stump closed TA stapler. Appeared to have good hemostasis. Nice healthy viable tension-free anastomosis. The stump had been over sewn with 3-0 PDS in running fashion for hemostasis. The mesentery defect closed with 3-0 PDS closing the mesenteric defect. The anastomosis was widely patent, tension-free and viable. Copious amount of irrigation irrigating until clear. A small amount of purulence down in the posterior colon this was carefully irrigated out with copious amount of sterile saline. IVETTE drain was left here as well as along the right cutter appendix. It should be noted that the appendix appeared to have prior appendiceal inflammation or infection in the past as the tip of the appendix had been sealed off by the small bowel mesentery. Initial perforation was more proximal. There appears to have been a reaction in the past, secondary reaction now. The appendix had been removed and passed off. Copious amount of irrigation irrigating until clear. Drains were in place. Anastomosis was tension-free, viable, technically appeared excellent. Copious amount of irrigation irrigating until clear. At this point the area where she had the significant very large duodenal and small duodenal ulcers did not appear to have any perforation at this time. The gallbladder is smooth. The liver is smooth. It was felt no other intervention necessary. Copious amount of irrigation irrigating until clear. Gloves were changed. The fistula visceral protector was inserted. Fascia was closed with running looped PDS in sequential fashion. Subcu irrigated out. Skin loosely stapled and some Iodoform packing placed to be gradually backed out over the next few days. IVETTE drain secured with PDS suture and placed to bulb suction. The patient had sterile dressing and abdominal binding. Findings discussed with the family out in the waiting area including the possibility that she could over heal the anastomosis, fistulize and leak and create other issues, that it was noted the appendix appeared to be a secondary appendiceal infection where she had one in the past that had been sealed off this created fistulization of small bowel loops and abscess as well as pseudo-obstruction requiring resection of a small segment of the ileum. I felt this was safer than risk this leaking later in this patient with multiple medical problems. She was transferred to ICU per anesthesia. She remains in guarded condition given her overall significant health problems. She is to stay on proton pump inhibitor b.i.d. for her significant large ulcer disease as well as continue on IV antibiotics.
--- NOTE | 2017-04-19 13:35 | HP ---
HISTORY OF PRESENT ILLNESS: This is a 76 year-old patient without a physician in the local area presented to the emergency department today. Her family is at the bedside. They state that she was at [facility] and was admitted there on 04/14/2017 and then released today 04/18/2017. There she had a high white blood cell count and was diagnosed with urinary tract infection. They report she also had a CT scan of her abdomen and pelvis on 04/15/2017 that according to the family was read as an ulcer versus diverticula, as well as gastroenteritis, gallstone and a cyst on the appendix. No inflammation. She had upper endoscopy on Wednesday that revealed an ulcer and she was started on Protonix. The family reports she continued not to eat well, was feeling weak and was complaining of some pain today in her abdomen. They reported her color in general looked bad and she seemed out of sorts. They report at [facility] she was on Levaquin and her white blood cell count was going higher instead of coming down. They also report she had hyponatremia at [facility] as well. At this time we have not obtained records from [facility]. In our emergency room, the patient was found to have appendicitis on CT of abdomen and pelvis. The emergency room physician called me and said that he had talked to Dr. Blevins already and that Dr. Blevins was willing to take the patient to surgery if I was willing to admit the patient. The radiologist also noted a pericardial effusion and bilateral pleural effusions on the CT scan of the abdomen and pelvis. However, I was not aware of those when I accepted her admission. The patient went to surgery today with Dr. Blevins and initially was having laparoscopic appendectomy that was converted to open and then also part of her small bowel was removed as it was adhesed to where her appendix was according to the surgeon's report. Please see the report for complete details. I was called after the patient was back in ICU. At that time they stated that she was on BiPAP on 100% oxygen and that the nurse senior environmental practice leader had asked for cardiology as well as pulmonary consult. They have talked to Dr. Ruiz and after I spoke with the nurse they called Dr. Kwan Josue and updated him. He felt the patient, according to the nurses, would be okay staying here overnight. The family of course is concerned about her and questioned whether she needed to be transferred tonight. It appears from her computer records and paper chart records that she received Levaquin in the emergency department, Flagyl in the OR, Clindamycin in the OR. She has Meropenem ordered now as well as Flagyl to continue so continue with antibiotics Meropenem and Flagyl. I will verify all of this with the pharmacy in the morning. She is well covered with Meropenem and Flagyl at this time. She had blood cultures that are in lab and urine culture in lab. She did require 300 ml of fluid in the OR and has gotten 1 liter of fluid here in ICU for hypotension. Also in the OR written note it looks like she received a dose of esmolol in the OR and they also gave her an amp of sodium bicarb in the OR. REVIEW OF SYSTEMS: Unobtainable at this time as the patient is on BiPAP besides what has been mentioned by the family and history of present illness. PAST MEDICAL HISTORY: Lung cancer in 1998 which she received 33 radiation treatments for and currently in remission. She has a history of chronic obstructive pulmonary disease but does not use Albuterol inhaler at home. She has history of sinus tachycardia for which she takes Toprol for. She has benign tremors and they bleed. She has the beginning of Alzheimer's disease. Hyperlipidemia, hypertension/ MEDICATIONS: Pantoprazole 40 mg p.o. b.i.d., metoprolol succinate 50 mg daily, diclofenac 50 mg t.i.d., Alprazolam 0.5 mg p.o. t.i.d., fish oil 1,000 mg daily, Fosamax 70 mg every seven days, Remeron 50 mg daily, Enalapril 10 mg daily, Glucosamine with Chondroitin 1 tablet p.o. daily, calcium 600 mg p.o. daily, Pravastatin 40 mg daily, aspirin 81 mg daily. ALLERGIES: PENICILLIN, SULFA. SOCIAL HISTORY: She lives at home by herself. They reports she smokes two packs per day of cigarettes. No alcohol use. FAMILY HISTORY: Her mother had kidney problems and possibly history of small bowel obstruction. Her father had leukemia. PHYSICAL EXAMINATION: VITAL SIGNS: Temperature current 97.7F, heart rate 119, blood pressure 111/53, respiratory rate 24. Oxygen saturation 100% on BiPAP. GENERAL: The patient is lying in bed. She does move her hand when I ask her to and opens her eyes and looks at me. Her family is at the bedside including her daughter, Jacque, and granddaughter, Belén. CVS: Heart tachycardic with regular rhythm. No murmurs, gallops or rubs are appreciated. CHEST: Clear to auscultation when auscultated anteriorly. No crackles or wheezes are appreciated. ABDOMEN: Without bowel sounds. She has a dressing in place as well as a binder and two drains. She has a Ybarra catheter in place. EXTREMITIES: No clubbing, cyanosis or edema. She has two peripheral IV's and arterial line that they are able to draw blood from but does not correlate with her manual blood pressure. ASSESSMENT AND PLAN: 1) APPENDICITIS STATUS POST OPEN APPENDECTOMY WITH SMALL BOWEL RESECTION: Continue management per the surgeon. Will continue meropenem and Flagyl. She has blood cultures and urine cultures in lab. 2) CHRONIC OBSTRUCTIVE PULMONARY DISEASE WITH ACUTE RESPIRATORY FAILURE: Will continue with BiPAP. Dr. Kwan Josue has been called and consulted. I discussed at length with the family at this time. I think it would be most beneficial for her to stay here instead of transferring to another facility as most likely she would need to be intubated to be transferred. 3) PERICARDIAL EFFUSION: I have ordered an echo for the morning, river crossing supervisor Dr. Ruiz has been consulted. 4) BILATERAL PLEURAL EFFUSIONS: She has needed some fluids during the hospital stay for her hypotension. We are going to try to turn her fluids down to 75 ml/hour, will continue to monitor her respiratory status. She continues on the BiPAP and is stable on this at this time. Will wean her oxygen down as tolerated. 5) TOBACCO ABUSE: She has long history of tobacco abuse two packs per day and her chart says for 50 years. 6) ULCER: She has been started on Protonix 40 mg IV every 12 hours and will continue with this and try to obtain records from [facility]. 7) DEEP VENOUS THROMBOSIS PROPHYLAXIS: Use SCD and LADAN hose.
--- NOTE | 2017-04-19 15:04 | ECHO ---
Transthoracic echocardiographic examination and color Doppler was done on 04/19/2017. INDICATION: Tachycardia, shortness of breath. IMPRESSION: 1) NO DEFINITE REGIONAL WALL MOTION ABNORMALITY. ESTIMATED GLOBAL LEFT VENTRICULAR EJECTION FRACTION BETWEEM 50 AND 60%. 2) MILD TRICUSPID REGURGITATION. RIGHT VENTRICULAR SYSTOLIC PRESSURE OF 51 MM OF MERCURY SUGGESTIVE OF MODERATE PULMOMARY HYPERTENSION. 3) TRACE AORTIC REGURGITATION. 4) TRACE PERICARDIAL EFFUSION. 5) LEFT ATRIAL ENLARGEMENT. 6) LEFT VENTRICULAR HYPERTROPHY. The left ventricle is visualized and demonstrated adequate motion of all the segments. Estimated global left ventricular ejection fraction between 50 and 60%. There is mild left ventricular hypertrophy. The mitral valve is seen and this opens adequately. No significant mitral regurgitation is seen. Tissue Doppler study of the lateral mitral annulus suggestive of left ventricular diastolic dysfunction. The aortic valve opens adequately. There is trace aortic regurgitation. The right side chambers are mildly dilated. There is mild tricuspid regurgitation. The right ventricular systolic pressure of 51 mm of Mercury suggestive of moderate pulmonary hypertension. There is also small pericardial effusion.
--- NOTE | 2017-04-19 15:27 | CONS ---
CONSULT DATE: 04/19/2017 BRIEF HISTORY: This is a 76 year-old female was seen post exploratory laparotomy for appendicitis. The patient initially presented to the emergency room at [facility] with a leukocytosis and was diagnosed to have urinary tract infection. The subsequent study showed that she had acute appendicitis based on the CT scan done at [facility]. She underwent exploratory laparotomy with resection of a small portion of the small portion of intestines. Postoperative she became hypotensive and was placed on Levophed. She was also shortness of breath. She was noted to be tachycardic. At the time of this examination she denied any chest pain but she complains of being short of breath. The shortness of breath is somewhat chronic. She has underlying chronic obstructive pulmonary disease. According to the patient and also the granddaughter, she has never had any cardiac related issue except for tachycardia. She has never had myocardial infarction or previous heart failure. CARDIAC RISK FACTORS: Negative for diabetes. No hypertension. She still smokes. No known hyperlipidemia. 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 RESPIRATORY: She has history of lung cancer diagnosed in 1998. She has undergone radiation therapy. GI: She has a history of peptic ulcer. : Negative for dysuria, negative for hematuria. PERIPHERAL VASCULAR: No history of DVT or claudication. PAST SURGICAL HISTORY: Recent exploratory laparotomy. 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 CURRENT MEDICATIONS: Albuterol inhaler, nicotine patch, Protonix, Metronidazole. PHYSICAL EXAMINATION: Her blood pressure 134/42 with heart rate 123, respirations about 20. GENERAL: The patient is an elderly female who is alert, shortness of breath with just plain conversation. HEENT: Unremarkable. NECK: No significant JVD. CHEST: There are scattered rhonchi, coarse rhonchi in both lung gooden. CARDIAC: Heart tones are distant. The rhythm is regular but tachycardic. ABDOMEN: She was given an abdominal binder. EXTREMITIES: No significant edema with distal pulses are palpable but somewhat diminished. LAB DATA AND DIAGNOSTIC TESTS: The EKG shows sinus tachycardia and probable old anteroseptal myocardial infarction. The echocardiogram shows left ventricular systolic function between 50 and 60%. There is evidence of moderate pulmonary hypertension. IMPRESSION: 1) Sinus tachycardia due to hypermetabolic state. She had recent surgery and also due to chronic obstructive pulmonary disease with some exacerbation. Blood pressure is somewhat marginal. Her albumin is low. I would suggest infusing 250 cc of 5% albumin with the patient started on beta blockers at a low dose which would be given parenteral as she is NPO at this time. 2) Chronic obstructive pulmonary disease with continued tobacco abuse which may also account for her shortness of breath. After she stabilizes from her current medical problem she still likely will need further noninvasive assessment for coronary artery disease.
[2017-04-19] MEDS ORDERED: AlbuRx 25% 50ML VIAL*** 50 ML in Sodium Chloride 0.9% 250 ML 200 ML IV ONE (16:00)
[2017-04-19] MEDS: MORPHINE SULFATE 2 MG INJ IV PRN ×2 (18:08→21:41)
[2017-04-19] MEDS: LOPRESSOR 5 MG/5 ML INJECTION IV SCH (18:36)
[2017-04-20] MEDS: MORPHINE SULFATE 2 MG INJ IV PRN ×2 (01:12→06:36)
[2017-04-20] MEDS: LOPRESSOR 5 MG/5 ML INJECTION IV SCH ×6 (01:13→17:33)
[2017-04-20] MEDS ORDERED: DUONEB 0.5-3 MG/3 ml Neb IH PRN (04:35)
[2017-04-20] MEDS: Dextrose 5% -0.45 NaCl 1000 ML 1,000 ML IV SCH ×4 (05:14→17:32)
[2017-04-20 05:49] LABS: Mean Cell Volume 89.4 fl (78-100); Platelet Count 274 K/mm3 (150-450); Red Blood Count 2.93 M/mm3 (4.1-5.4); Red Cell Distribution Width 14.2 % (11.5-14.0); White Blood Count 17.8 K/mm3 (4.0-10.5)
[2017-04-20 06:19] LABS: Total Cells Counted 100
[2017-04-20 06:22] LABS: ANISOCYTOSIS 1+; Hypochromia 1+; Platelet Estimate NORMAL (NORMAL); Poikilocytosis 1+; Polychromasia 1+; Toxic Granulation 1+
[2017-04-20] MEDS: FLAGYL 500 MG IVPB 500 MG/100 ML BAG IV SCH ×3 (06:36→23:20)
[2017-04-20] MEDS: DUONEB 0.5-3 MG/3 ml Neb IH SCH ×2 (07:12→13:49)
--- NOTE | 2017-04-20 08:30 | PCM.NOTE ---
Date and Time: 04/20/17823 Subjective Assessment: She has been seen by Dr. Ruiz and also tax specialist. She reports she has abdominal pain when she is moved from her incisions. Her nurse reports she was weaned off the levophed early last night. She reports feeling like she needs to urinate even though she has the keith catheter in. She has had sinus tachycardia and Dr. Ruiz is aware of this and has lopressor IV ordered for when her levophed was weaned off and hold for SBP <100 or HR <80. - Review of Systems Constitutional: No Symptoms Ears, Nose, & Throat: No Symptoms Respiratory: Cough, Short Of Breath Cardiac: No Symptoms Abdominal/Gastrointestinal: Abdominal Pain Genitourinary Symptoms: Other (feels like she needs to urinate) Skin: No Symptoms Objective Exam General Appearance: mild distress, other (tachypnea) Neurologic Exam: alert, cooperative, normal mood/affect Skin Exam: normal color, warm, dry Respiratory Exam: other (rhonchi bilat, mild retractions), No crackles/rales Cardiovascular Exam: tachycardia, No murmur, No friction rub, No gallop Gastrointestinal/Abdomen Exam: other (no bowel wounds, drains in place and incisions covered with dressings) Extremity Exam: other (no c/c/e) OBJECTIVE DATA Vital Signs: Vital Signs - 24 hr Temp Pulse Resp BP Pulse Ox 04/20/17 07:54 97.8 F 128 H 18 129/58 92 L 04/20/17 07:37 133 H 04/20/17 07:15 128 H 24 94 L 04/20/17 06:49 97.9 F 130 H 20 118/55 94 L 04/20/17 06:00 128 H 19 115/40 94 L 04/20/17 05:00 98.0 F 130 H 22 124/48 90 L 04/20/17 04:35 125 H 23 92 L 04/20/17 04:00 123 H 19 115/48 93 L 04/20/17 02:47 98.0 F 125 H 20 119/48 92 L 04/20/17 02:00 126 H 19 117/47 92 L 04/20/17 01:00 98.0 F 127 H 19 122/47 93 L 04/20/17 00:01 123 H 04/19/17 23:52 98.0 F 122 H 20 126/47 94 L 04/19/17 23:00 121 H 17 116/52 95 04/19/17 22:00 97.9 F 123 H 17 105/42 91 L 04/19/17 20:57 130 H 24 92/45 91 L 04/19/17 19:38 97.9 F 126 H 17 99/68 94 L 04/19/17 18:49 124 H 16 100/41 94 L 04/19/17 18:44 124 H 18 8 L 04/19/17 18:31 126 H 19 94/50 93 L 04/19/17 18:00 127 H 17 116/72 92 L 04/19/17 17:30 121 H 17 92/36 90 L 04/19/17 17:00 121 H 16 106/49 93 L 04/19/17 16:40 123 H 16 102/47 93 L 04/19/17 16:00 97.8 F 128 H 25 H 100/53 91 L 04/19/17 15:28 123 H 22 93 L 04/19/17 15:00 123 H 19 108/57 93 L 04/19/17 14:00 120 H 21 111/42 93 L 04/19/17 13:00 123 H 15 93/40 94 L 04/19/17 12:30 124 H 18 113/49 93 L 04/19/17 12:00 118 H 20 102/45 94 L 04/19/17 11:41 116 H 04/19/17 11:40 97.8 F 119 H 18 112/47 96 04/19/17 11:00 116 H 19 110/42 97 04/19/17 10:00 111 H 23 128/38 96 04/19/17 09:12 115 H 16 97 04/19/17 09:00 116 H 17 88/47 98 Oxygen-Last 24 hours O2 Percentage 60% O2 Percentage 60% O2 Percentage 60% O2 Percentage 60% Oxygen Flowrate (L/min)-RT 10 Oxygen Flowrate (L/min)-RT 10 Oxygen Flowrate (L/min)-RT 10 Oxygen Flowrate (L/min)-RT 10 Oxygen Flowrate (L/min)-RT 10 Oxygen Flowrate (L/min)-RT 10 Oxygen Flowrate (L/min)-RT 10 Oxygen Flowrate (L/min)-RT 10 Oxygen Flowrate (L/min)-RT 10 Oxygen Flowrate (L/min)-RT 10 Oxygen Flowrate (L/min)-RT 10 Oxygen Flowrate (L/min)-RT 10 Oxygen Flowrate (L/min)-RT 10 Oxygen Flowrate (L/min)-RT 9 Oxygen Flowrate (L/min)-RT 9 Oxygen Flowrate (L/min)-RT 9 Oxygen Flowrate (L/min)-RT 9 Oxygen Flowrate (L/min)-RT 9 Oxygen Flowrate (L/min)-RT 9 Oxygen Flowrate (L/min)-RT 9 Oxygen Flowrate (L/min)-RT 9 Oxygen Flowrate (L/min)-RT 9 Oxygen Flowrate (L/min)-RT 9 Oxygen Flowrate (L/min)-RT 9 Pain Assessment - Last Documented Pain Intensity 6 Pain Scale Used 0-10 Pain Scale Intake and Output: Intake & Output 04/18/17 04/19/17 04/20/17 04/21/17 06:59 06:59 06:59 06:59 Intake Total 2100 3745 Output Total 625 1440 Balance 1475 2305 Weight 73.573 kg 73.8 kg Lab Results: Lab Results-Last 24 Hours 04/19/17 04/19/17 04/20/17 Range/Units 05:25 06:49 05:30 WBC 17.8 H (4.0-10.5) K/mm3 RBC 2.93 L (4.1-5.4) M/mm3 Hgb 8.8 L (12.0-16.0) gm/dl Hct 26.2 L (35-47) % MCV 89.4 (78-100) fl MCH 30.0 (26-32) pg MCHC 33.6 (32-36) g/dl RDW 14.2 H (11.5-14.0) % Plt Count 274 (150-450) K/mm3 MPV 9.0 (6-9.5) fl Segmented Neutrophils 83 H (36.0-66.0) % Lymphocytes (Manual) 15 L (24-44) % Monocytes (Manual) 2 (0.0-12.0) % Differential Comment ABNORMAL Toxic Granulation 1+ Platelet Estimate NORMAL (NORMAL) Polychromasia 1+ Hypochromasia 1+ Poikilocytosis 1+ Anisocytosis 1+ Sodium 131 L (136-145) mEq/L Potassium 4.7 (3.5-5.1) mEq/L Chloride 105 (98-107) mEq/L Carbon Dioxide 21.8 (21-32) mEq/L Anion Gap 8.9 (5-15) MEQ/L BUN 16 (9-20) mg/dL Creatinine 0.83 (0.55-1.30) mg/dl Estimated GFR > 60 ML/MIN Glucose 209 H (70-110) MG/DL Hemoglobin A1c 5.9 (4.5-6.2) Calcium 7.4 L (8.5-10.1) mg/dL Prealbumin 8.9 L (18.0-35.7) mg/dL Radiology Exams: Radiology Procedures Category Date Time Status ECHO W/2D AND DOPPLER [US] Routine Exams 04/19/17 08:00 Draft PICC LINE PLACEMENT Routine Exams 04/20/17 Ordered Assessment/Plan (1) S/P appendectomy Current Visit: Yes Status: Acute Assessment & Plan: Management per surgeon. Continue current antibiotics. WBC improving. Code(s): Z90.49 - ACQUIRED ABSENCE OF OTHER SPECIFIED PARTS OF DIGESTIVE TRACT (2) S/P small bowel resection Current Visit: Yes Status: Acute Code(s): Z90.49 - ACQUIRED ABSENCE OF OTHER SPECIFIED PARTS OF DIGESTIVE TRACT (3) Acute respiratory failure with hypoxia Current Visit: Yes Status: Acute Assessment & Plan: She is off BIPAP today. Gis Geographer following. Code(s): J96.01 - ACUTE RESPIRATORY FAILURE WITH HYPOXIA (4) Hypotension Current Visit: Yes Status: Acute Qualifiers: Hypotension type: unspecified hypotension type Qualified Code(s): I95.9 - Hypotension, unspecified Assessment & Plan: She has been weaned off levophed. Code(s): I95.9 - HYPOTENSION, UNSPECIFIED (5) Pericardial effusion Current Visit: Yes Status: Acute Assessment & Plan: Echo read as trace pericardial effusion. Dr. Ruiz following. Code(s): I31.3 - PERICARDIAL EFFUSION (NONINFLAMMATORY) (6) Bilateral pleural effusion Current Visit: Yes Status: Acute Code(s): J90 - PLEURAL EFFUSION, NOT ELSEWHERE CLASSIFIED (7) Anemia Current Visit: Yes Status: Acute Qualifiers: Anemia type: unspecified type Qualified Code(s): D64.9 - Anemia, unspecified Code(s): D64.9 - ANEMIA, UNSPECIFIED (8) Tobacco abuse Current Visit: Yes Status: Acute Code(s): Z72.0 - TOBACCO USE (9) COPD (chronic obstructive pulmonary disease) Current Visit: Yes Status: Acute Assessment & Plan: Sputum culture ordered. Duo nebs ordered. (10) Hyperglycemia Current Visit: Yes Status: Acute Assessment & Plan: Checking BMP today. Hgb A1C normal at 5.9. Code(s): R73.9 - HYPERGLYCEMIA, UNSPECIFIED (11) Gastric ulcer Current Visit: Yes Status: Acute Assessment & Plan: Continue protonix. I do not see any records from [facility] yet about her scope that her family reported she had done Wednesday. Code(s): K25.9 - GASTRIC ULCER, UNSP ACUTE OR CHRONIC, W/O HEMOR OR PERF (12) Sinus tachycardia Current Visit: Yes Status: Acute Assessment & Plan: Check EKG. I will ask her nurses to update Dr. Ruiz. She has beta corrie IV ordered. Code(s): R00.0 - TACHYCARDIA, UNSPECIFIED
--- NOTE | 2017-04-20 08:36 | CONS ---
CONSULT DATE: 04/19/2017 REASON FOR CONSULT: Eda Cool is an elderly lady who is in ICU at [facility]. The patient had respiratory failure and has been treated with noninvasive mechanical ventilation with BiPAP. The patient is on oxygen by nasal cannula. She has been receiving respiratory treatment. Information is obtained from the chart, discussion with the staff as well as the patient's family including daughter and granddaughter. HISTORY: The patient has not been feeling well and had some abdominal discomfort. She was evaluated by her family physician and subsequently hospitalized at [facility] in [place]. She was diagnosed to have ulcer and dehydration. After treatment she wished to go to the hospital. She still had high white blood cell count of around 19,000 per daughter. Subsequently she had persistent abdominal pain. She was brought to [facility]. At that time she complained of mild diffuse cramps. She also had increased urinary frequency. I reviewed the emergency room record. The patient is known to have allergy to penicillin and sulfa. Her work up included CT scan of the abdomen and pelvis and this showed findings suggestive of appendicitis, small cul-de-sac fluid and adjacent small bowel ileus. The patient has duodenitis as well as evidence of colonic diverticulosis. The patient has sludge in the gallbladder and small hiatal hernia. I reviewed the CT images. The patient has small pleural effusions and small rim of pericardial effusion seen as well. The patient had surgical evaluation and initially abdominal laparoscopy was performed and subsequently had done laparotomy. The patient had colon resection with end-to-end anastomosis. Please refer to surgery notes. Postoperatively she remains in ICU. At the present time she is on low dose of Levophed drip. She is on coverage of Merrem and Flagyl. She has white blood cell count of around 38,000 which is now reduced to 28,000. The patient is sleeping but arousable. PAST MEDICAL HISTORY: Chronic obstructive pulmonary disease, hypercholesterolemia, osteoporosis, anxiety, hypertension, colonic diverticulosis. REVIEW OF SYSTEMS: Twelve systems as above and history of present illness. I reviewed the entire HOME MEDICATIONS: Includes alprazolam, aspirin, Alendronate, calcium, Arthrotec, Enalapril, Glucosamine, metoprolol, Mirtazapine, Citron[place], pantoprazole and Pravastatin. ALLERGIES: SULFA, PENICILLIN. PHYSICAL EXAMINATION: A pleasant lady in no acute distress, comfortable with heart rate of 148, respiratory rate 20, blood pressure 130/78. HEENT: Normocephalic, nonicteric. Throat clear. CHEST: Bilateral breath sounds diminished. HEART: Mild tachycardia. No murmur or gallop. ABDOMEN: Soft. Postoperative drain in place. EXTREMITIES: No edema, clubbing or cyanosis. INFECTION CONTROL COORDINATOR: Limited exam grossly nonfocal. LAB DATA AND TESTS: I reviewed the emergency room labs and testing. Emergency room labs including CBC and CMP noted. The patient has low albumin. CT abdomen and chest x-ray report noted. IMPRESSION: 1) ACUTE HYPOXIC RESPIRATORY FAILURE. 2) ACUTE EXACERBATION OF CHRONIC OBSTRUCTIVE PULMONARY DISEASE. 3) SEPSIS WITH SHOCK. 4) ACUTE ABDOMEN STATUS POST LAPAROTOMY WITH COLECTOMY. 5) NICOTINE ADDICTION. 6) HISTORY OF LUNG CANCER STATUS POST RADIATION THERAPY IN 1998. RECOMMENDATIONS: 1) Continue broad spectrum antibiotic coverage with Merrem and Flagyl. 2) Surgical follow up regarding postoperative care. 3) I discussed the echo findings with Dr. Ruiz and apparently the patient has a good ejection fraction. She has mild pericardial effusion though not significant. 4) Repeat chest x-ray showed mild blunting of costophrenic angles likely from the patient's sympathetic effusion. Consider doing follow up chest x-ray at a later date. 5) Bronchodilators including pulmonary toilet with flutter device. 6) The patient is on low dose Levophed which gradually can be weaned off when she is off vasopressors. I would recommend increasing activity in the form of sitting in a bed and also ambulating with the staff and/or physical therapy. 7) Albumin for hypoalbuminemia and fluid bolus. 8) The patient is to be followed by surgery and cardiology. 9) For now will sign off the case but do not hesitate to call or consult should need arise. The patient could be followed by her service as outpatient where a follow up x-ray and PFT could be done for continued care and follow up. 10) Bronchodilators at home. 11) Address stopping smoking.
[2017-04-20] MEDS: MORPHINE SULFATE 4 MG INJ IV PRN ×5 (08:59→19:20)
[2017-04-20 09:18] LABS: ANION GAP 12.3 MEQ/L (5-15); BLOOD UREA NITROGEN 10 mg/dL (9-20); CHLORIDE 107 mEq/L (98-107); Carbon Dioxide 23.4 mEq/L (21-32); Glucose 195 MG/DL (70-110); Potassium 3.7 mEq/L (3.5-5.1); SODIUM 139 mEq/L (136-145)
--- NOTE | 2017-04-20 10:52 | XRAY ---
Indication: Ultrasound guidance for PICC line placement. Initial sonographic imaging of the right upper extremity was performed for localization of patent veins. A patent basilic vein identified above the elbow. Ultrasound guidance was then used for PICC line insertion. Full PICC line insertion is reported separately.
[2017-04-20] MEDS: Merrem 1 GM 1 G in Sodium Chloride 100ML MINI-BAG PLUS 100 ML IV SCH ×2 (10:55→22:43)
--- NOTE | 2017-04-20 10:56 | XRAY ---
Indication: Status post appendectomy for perforated appendicitis. Duodenal ulcer. Long-term IV antibiotic therapy. Informed consent obtained. Patient was placed on the fluoroscopic table in a supine position. Initial sonographic imaging of the right upper extremity was performed for localization of patent veins. The right upper extremity was then prepped and draped in sterile fashion. Tourniquet applied. 1% lidocaine plain used for local anesthesia. Using ultrasound guidance and a micropuncture needle, a basilic vein above the elbow was successfully percutaneously cannulized. A floppy tip 0.018 guidewire inserted. Tourniquet released. Needle was exchanged for a 5 Hungarian dilator peel-away sheath catheter. Ultimately a 5 Hungarian double-lumen PICC line was inserted over a longer 0.018 guidewire with the tip positioned in the distal SVC using fluoroscopic guidance. Guidewire removed. Both ports flushed with heparinized saline. Catheter was secured. Postoperative instructions and orders given. Patient discharged in good condition. Impression: Technically successful right upper extremity PICC line placement using ultrasound and fluoroscopic guidance. No immediate complications. Approximately 2 cc blood loss. Approximately 0.1 minute of fluoroscopy used. Catheter length is 33 cm.
[2017-04-20] MEDS: Nicoderm CQ 21 MG TOP SCH (11:03)
[2017-04-20] MEDS: PROTONIX 40 MG IV IV SCH ×2 (11:03→22:43)
[2017-04-20] MEDS ORDERED: Sodium Chloride 0.9% 500 ML 500 ML IV ONE (12:30)
[2017-04-20] MEDS ORDERED: Xopenex 1.25 MG/0.5 ML UD NEBULE IH ONE (15:03)
[2017-04-20] MEDS: Xopenex 1.25 MG/0.5 ML UD NEBULE IH PRN (19:44)
[2017-04-21] MEDS: LOPRESSOR 5 MG/5 ML INJECTION IV SCH ×5 (00:30→22:48)
[2017-04-21] MEDS: MORPHINE SULFATE 4 MG INJ IV PRN ×8 (02:10→21:03)
[2017-04-21] MEDS: Dextrose 5% -0.45 NaCl 1000 ML 1,000 ML IV SCH ×3 (05:24→13:51)
[2017-04-21 06:27] LABS: Mean Cell Volume 91.2 fl (78-100); Mean Platelet Volume 9.2 fl (6-9.5); Platelet Count 283 K/mm3 (150-450); Red Blood Count 2.95 M/mm3 (4.1-5.4); Red Cell Distribution Width 14.9 % (11.5-14.0); White Blood Count 16.4 K/mm3 (4.0-10.5)
[2017-04-21] MEDS: DUONEB 0.5-3 MG/3 ml Neb IH SCH ×2 (06:36→08:50)
[2017-04-21 06:37] LABS: ANION GAP 11.8 MEQ/L (5-15); BLOOD UREA NITROGEN 8 mg/dL (9-20); CHLORIDE 108 mEq/L (98-107); Carbon Dioxide 24.6 mEq/L (21-32); Glucose 178 MG/DL (70-110); Potassium 3.7 mEq/L (3.5-5.1); SODIUM 141 mEq/L (136-145)
[2017-04-21 06:56] LABS: Mean Corpuscular Hemoglobin 30.1 pg (26-32)
[2017-04-21] MEDS ORDERED: Sodium Chloride 3 ML UD NEBULES IH PRN (07:04)
[2017-04-21 07:17] LABS: ANISOCYTOSIS 1+; Platelet Estimate NORMAL (NORMAL); Poikilocytosis 1+; Total Cells Counted 100; Toxic Granulation 1+
[2017-04-21] MEDS: FLAGYL 500 MG IVPB 500 MG/100 ML BAG IV SCH ×2 (07:19→16:01)
[2017-04-21] MEDS ORDERED: LOPRESSOR 5 MG/5 ML INJECTION IV ONE (08:30)
[2017-04-21] MEDS ORDERED: Lasix 20 MG/2 ML IV ONE (08:30)
[2017-04-21] MEDS: Merrem 1 GM 1 G in Sodium Chloride 100ML MINI-BAG PLUS 100 ML IV SCH ×2 (09:01→21:03)
[2017-04-21] MEDS: Nicoderm CQ 21 MG TOP SCH (09:02)
[2017-04-21] MEDS: PROTONIX 40 MG IV IV SCH ×2 (09:02→21:03)
--- NOTE | 2017-04-21 09:05 | PCM.NOTE ---
Date and Time: 04/21/17904 Subjective Assessment: She reports that the bipap bothers her nose and is hard to wear. She reports a cough but hard to cough this up. Her nurse has checked with Dr. Ruiz about her heart rate. - Review of Systems Constitutional: No Symptoms Eyes: No Symptoms Ears, Nose, & Throat: No Symptoms Respiratory: Cough, Short Of Breath Cardiac: No Symptoms Abdominal/Gastrointestinal: Abdominal Pain Genitourinary Symptoms: Other (feels like she needs to urinate even though catheter is in place) Skin: No Symptoms Objective Exam General Appearance: mild distress Neurologic Exam: alert, cooperative, normal mood/affect Skin Exam: normal color, warm, dry, No rash Respiratory Exam: other (on oxy mask; clear to auscultation anteriorly, tachypnea) Cardiovascular Exam: tachycardia, No murmur, No friction rub, No gallop Gastrointestinal/Abdomen Exam: soft, other (hypoactive bowel sounds, dressings in place) Extremity Exam: other (no c/c/e) OBJECTIVE DATA Vital Signs: Vital Signs - 24 hr Temp Pulse Resp BP Pulse Ox 04/21/17 08:26 109 H 24 115/59 95 04/21/17 08:08 97.9 F 131 H 20 135/45 94 L 04/21/17 07:55 129 H 04/21/17 07:21 94 L 04/21/17 06:40 121 H 18 96 04/21/17 06:04 124 H 116/48 04/21/17 04:13 98.4 F 125 H 16 132/48 96 04/21/17 03:46 125 H 04/21/17 02:37 120 H 128/93 04/21/17 01:00 98.4 F 114 H 18 101/36 96 04/21/17 00:01 125 H 04/20/17 20:29 98.1 F 125 H 22 101/36 94 L 04/20/17 20:00 125 H 04/20/17 19:45 121 H 22 92 L 04/20/17 17:32 112 H 19 109/49 98 04/20/17 15:57 98 F 119 H 21 135/60 95 04/20/17 13:49 119 H 20 95 04/20/17 13:10 113 H 17 106/49 98 04/20/17 12:00 127 H 20 103/56 96 04/20/17 11:00 124 H 18 111/65 94 L 04/20/17 10:00 96.9 F 126 H 24 125/51 97 Oxygen-Last 24 hours O2 Percentage 100% O2 Percentage 100% Oxygen Flowrate (L/min)-RT 8 Oxygen Flowrate (L/min)-RT 8 Oxygen Flowrate (L/min)-RT 10 Oxygen Flowrate (L/min)-RT 10 Oxygen Flowrate (L/min)-RT 10 Oxygen Flowrate (L/min)-RT 10 Oxygen Flowrate (L/min)-RT 10 Pain Assessment - Last Documented Pain Intensity 7 Pain Scale Used 0-10 Pain Scale Intake and Output: Intake & Output 04/19/17 04/20/17 04/21/17 04/22/17 06:59 06:59 06:59 06:59 Intake Total 2100 3745 3178 Output Total 625 1440 1385 Balance 1475 2305 1793 Weight 73.573 kg 73.8 kg 75.931 kg Lab Results: Lab Results-Last 24 Hours 04/18/17 04/20/17 04/21/17 Range/Units 20:40 08:16 05:40 WBC 16.4 H (4.0-10.5) K/mm3 RBC 2.95 L (4.1-5.4) M/mm3 Hgb 8.9 L (12.0-16.0) gm/dl Hct 26.9 L (35-47) % MCV 91.2 (78-100) fl MCH 30.1 (26-32) pg MCHC 33.1 (32-36) g/dl RDW 14.9 H (11.5-14.0) % Plt Count 283 (150-450) K/mm3 MPV 9.2 (6-9.5) fl Segmented Neutrophils 84 H (36.0-66.0) % Lymphocytes (Manual) 15 L (24-44) % Monocytes (Manual) 1 (0.0-12.0) % Differential Comment ABNORMAL Toxic Granulation 1+ Platelet Estimate NORMAL (NORMAL) Poikilocytosis 1+ Anisocytosis 1+ Smear Path Review Sodium 139 (136-145) mEq/L Potassium 3.7 (3.5-5.1) mEq/L Chloride 107 (98-107) mEq/L Carbon Dioxide 23.4 (21-32) mEq/L Anion Gap 12.3 (5-15) MEQ/L BUN 10 (9-20) mg/dL Creatinine 0.61 (0.55-1.30) mg/dl Estimated GFR > 60 ML/MIN Glucose 195 H (70-110) MG/DL Calcium 7.6 L (8.5-10.1) mg/dL 04/21/17 Range/Units 05:40 WBC (4.0-10.5) K/mm3 RBC (4.1-5.4) M/mm3 Hgb (12.0-16.0) gm/dl Hct (35-47) % MCV (78-100) fl MCH (26-32) pg MCHC (32-36) g/dl RDW (11.5-14.0) % Plt Count (150-450) K/mm3 MPV (6-9.5) fl Segmented Neutrophils (36.0-66.0) % Lymphocytes (Manual) (24-44) % Monocytes (Manual) (0.0-12.0) % Differential Comment Toxic Granulation Platelet Estimate (NORMAL) Poikilocytosis Anisocytosis Smear Path Review Sodium 141 (136-145) mEq/L Potassium 3.7 (3.5-5.1) mEq/L Chloride 108 H (98-107) mEq/L Carbon Dioxide 24.6 (21-32) mEq/L Anion Gap 11.8 (5-15) MEQ/L BUN 8 L (9-20) mg/dL Creatinine 0.51 L (0.55-1.30) mg/dl Estimated GFR > 60 ML/MIN Glucose 178 H (70-110) MG/DL Calcium 8.1 L (8.5-10.1) mg/dL Radiology Exams: Radiology Procedures Category Date Time Status GUIDE FOR VASCULAR ACCESS [US] Routine Exams 04/20/17 Completed PICC LINE PLACEMENT Routine Exams 04/20/17 Completed Multi-Disciplinary Progress Notes: Multi-Disciplinary Progress Notes 04/20/17 20:32 Respiratory Note by Maxi Baxter DUE TO HIGH HR RT GAVE XOPENEX FOR PT QID TX INSTEAD OF DUONEB. I PLACED AN ORDER FOR A Q4PRN XOPENEX FOR FUTURE TXS THAT MAY NEED SUBSTITUTED. Initialized on 04/20/17 20:32 - END OF NOTE 04/20/17 17:24 Respiratory Note by Colt Enciso 1500 TX WAS HELD DUE TO INCREASED HEART RATE OF 132. Initialized on 04/20/17 17:24 - END OF NOTE Assessment/Plan (1) S/P appendectomy Current Visit: Yes Status: Acute Assessment & Plan: Management per surgeons. Continue antibiotics and WBC continues to decrease. PICC line in place. Code(s): Z90.49 - ACQUIRED ABSENCE OF OTHER SPECIFIED PARTS OF DIGESTIVE TRACT (2) S/P small bowel resection Current Visit: Yes Status: Acute Code(s): Z90.49 - ACQUIRED ABSENCE OF OTHER SPECIFIED PARTS OF DIGESTIVE TRACT (3) Acute respiratory failure with hypoxia Current Visit: Yes Status: Acute Assessment & Plan: Trying to wean off bipap. Code(s): J96.01 - ACUTE RESPIRATORY FAILURE WITH HYPOXIA (4) Hypotension Current Visit: Yes Status: Resolved Qualifiers: Hypotension type: unspecified hypotension type Qualified Code(s): I95.9 - Hypotension, unspecified Code(s): I95.9 - HYPOTENSION, UNSPECIFIED (5) Pericardial effusion Current Visit: Yes Status: Acute Assessment & Plan: Mild on echo. Code(s): I31.3 - PERICARDIAL EFFUSION (NONINFLAMMATORY) (6) Bilateral pleural effusion Current Visit: Yes Status: Acute Code(s): J90 - PLEURAL EFFUSION, NOT ELSEWHERE CLASSIFIED (7) Anemia Current Visit: Yes Status: Acute Qualifiers: Anemia type: unspecified type Qualified Code(s): D64.9 - Anemia, unspecified Assessment & Plan: Currently stable. Checking daily. Code(s): D64.9 - ANEMIA, UNSPECIFIED (8) Tobacco abuse Current Visit: Yes Status: Acute Code(s): Z72.0 - TOBACCO USE (9) COPD (chronic obstructive pulmonary disease) Current Visit: Yes Status: Acute Assessment & Plan: Will add spiriva as she got Xopenex over night instead of duonebs due to tachycardia. Continue management per oil expeller operator. (10) Hyperglycemia Current Visit: Yes Status: Acute Code(s): R73.9 - HYPERGLYCEMIA, UNSPECIFIED (11) Sinus tachycardia Current Visit: Yes Status: Acute Assessment & Plan: She has metoprolol IV ordered. Dr. Ruiz thinks her low albumin is contributing too. Will start hyperal. Code(s): R00.0 - TACHYCARDIA, UNSPECIFIED (12) Duodenal ulcer Current Visit: Yes Status: Acute Assessment & Plan: Continue protonix 40 mg IV bid.
[2017-04-21] MEDS: Sodium Chloride 3 ML UD NEBULES IH SCH ×2 (10:40→14:45)
[2017-04-21] MEDS: Xopenex 1.25 MG/0.5 ML UD NEBULE IH SCH ×3 (10:40→20:38)
[2017-04-21] MEDS: Spiriva 18 Mcg/Cap Inhaler IH SCH (10:41)
[2017-04-21] MEDS ORDERED: PHARMACY DOSING REQUEST MC ONE (12:02)
[2017-04-21] MEDS ORDERED: INTRALIPID 20% 250 ML 250 ML, TPN Electrolytes 40 ML, Multitrace-4 Conc Vial 1 ML*** 1 ... IV SCH ×11 (14:00)
[2017-04-22] MEDS: MORPHINE SULFATE 4 MG INJ IV PRN ×3 (00:39→06:15)
[2017-04-22] MEDS: LOPRESSOR 5 MG/5 ML INJECTION IV SCH ×2 (05:21→12:48)
[2017-04-22 05:45] LABS: Mean Cell Volume 99.7 fl (78-100); Mean Corpuscular Hemoglobin 31.8 pg (26-32); Mean Platelet Volume 9.4 fl (6-9.5); Platelet Count 248 K/mm3 (150-450); Red Blood Count 2.86 M/mm3 (4.1-5.4); Red Cell Distribution Width 16.1 % (11.5-14.0); White Blood Count 12.8 K/mm3 (4.0-10.5)
[2017-04-22] MEDS: Xopenex 1.25 MG/0.5 ML UD NEBULE IH SCH ×4 (07:01→19:50)
[2017-04-22] MEDS: Sodium Chloride 3 ML UD NEBULES IH SCH ×4 (07:02→20:56)
[2017-04-22 07:12] LABS: ANION GAP 9.7 MEQ/L (5-15); BLOOD UREA NITROGEN 10 mg/dL (9-20); CHLORIDE 108 mEq/L (98-107); Carbon Dioxide 28.2 mEq/L (21-32); Glucose 199 MG/DL (70-110); Potassium 3.7 mEq/L (3.5-5.1); SODIUM 142 mEq/L (136-145)
[2017-04-22 07:22] LABS: Total Cells Counted 100
[2017-04-22 07:25] LABS: ANISOCYTOSIS 1+; Platelet Estimate NORMAL (NORMAL); Poikilocytosis 1+
--- NOTE | 2017-04-22 08:59 | PCM.NOTE ---
Date and Time: 04/22/17850 Subjective Assessment: Patient reports she continues to woken up for things and did not rest well. Her nurse notes she continues to have tachycardia. TPN was started yesterday. She reports she continues to cough and continues to feel like she needs to urinate but does not think she wants to use a bed chapa instead of the keith catheter. She reports her abdomen continues to feel sore and she has not passed gas. - Review of Systems Constitutional: No Symptoms Eyes: No Symptoms Ears, Nose, & Throat: No Symptoms Respiratory: Cough, Short Of Breath, Wheezing Cardiac: No Symptoms Abdominal/Gastrointestinal: Abdominal Pain, No Nausea, No Vomiting, No Diarrhea Genitourinary Symptoms: Other (feels like she needs to urinate) Skin: No Symptoms Objective Exam General Appearance: no apparent distress, other (on oxy mask, talkative, answers questions appropriately, picc in right arm, keith in place) Neurologic Exam: alert, cooperative, normal mood/affect Skin Exam: normal color, warm, dry Respiratory Exam: other (clear when ausculated anteriorly) Cardiovascular Exam: tachycardia, No murmur, No friction rub, No gallop Gastrointestinal/Abdomen Exam: other (few bowel sounds, dressings covered, drains in place, ng tube present) Extremity Exam: other (no c/c/e) OBJECTIVE DATA Vital Signs: Vital Signs - 24 hr Temp Pulse Resp BP Pulse Ox 04/22/17 07:59 128 H 04/22/17 07:58 97.9 F 128 H 21 156/63 95 04/22/17 07:19 94 L 04/22/17 07:17 88 L 04/22/17 07:06 118 H 20 95 04/22/17 05:49 24 04/22/17 05:48 97.7 F 114 H 24 127/73 93 L 04/22/17 04:00 97.9 F 127 H 17 140/66 94 L 04/22/17 02:00 123 H 20 134/54 92 L 04/22/17 00:01 131 H 04/22/17 00:00 98.1 F 131 H 17 125/54 95 04/21/17 22:00 128 H 19 115/54 96 04/21/17 20:38 129 H 15 89 L 04/21/17 20:00 97.8 F 125 H 22 110/44 95 04/21/17 17:49 122 H 19 120/45 94 L 04/21/17 15:55 123 H 16 103/68 94 L 04/21/17 14:52 122 H 18 95 04/21/17 14:00 98 F 120 H 21 117/53 95 04/21/17 11:46 112 H 20 128/70 94 L 04/21/17 11:30 84 L 04/21/17 10:52 120 H 22 95 04/21/17 09:57 118 H 17 107/42 96 04/21/17 09:03 96 Oxygen-Last 24 hours O2 Percentage 100% O2 Percentage 6 Liters = 44% O2 Percentage 6 Liters = 44% O2 Percentage 6 Liters = 44% O2 Percentage 4 Liters = 36% Oxygen Flowrate (L/min)-RT 9 Oxygen Flowrate (L/min)-RT 4 Oxygen Flowrate (L/min)-RT 4 Oxygen Flowrate (L/min)-RT 4 Oxygen Flowrate (L/min)-RT 6 Oxygen Flowrate (L/min)-RT 8 Oxygen Flowrate (L/min)-RT 6 Pain Assessment - Last Documented Pain Intensity 5 Pain Scale Used 0-10 Pain Scale Intake and Output: Intake & Output 04/20/17 04/21/17 04/22/17 04/23/17 06:59 06:59 06:59 06:59 Intake Total 3745 3178 2170 Output Total 1440 1385 3150 Balance 2305 1793 -980 Weight 73.8 kg 75.931 kg 74.616 kg Lab Results: Lab Results-Last 24 Hours 04/21/17 04/22/17 04/22/17 Range/Units 10:53 05:00 05:00 WBC 12.8 H (4.0-10.5) K/mm3 RBC 2.86 L (4.1-5.4) M/mm3 Hgb 9.1 L (12.0-16.0) gm/dl Hct 28.5 L (35-47) % MCV 99.7 (78-100) fl MCH 31.8 (26-32) pg MCHC 31.9 L (32-36) g/dl RDW 16.1 H (11.5-14.0) % Plt Count 248 (150-450) K/mm3 MPV 9.4 (6-9.5) fl Segmented Neutrophils 83 H (36.0-66.0) % Lymphocytes (Manual) 15 L (24-44) % Monocytes (Manual) 2 (0.0-12.0) % Differential Comment ABNORMAL Platelet Estimate NORMAL (NORMAL) Poikilocytosis 1+ Anisocytosis 1+ Sodium 142 (136-145) mEq/L Potassium 3.7 (3.5-5.1) mEq/L Chloride 108 H (98-107) mEq/L Carbon Dioxide 28.2 (21-32) mEq/L Anion Gap 9.7 (5-15) MEQ/L BUN 10 (9-20) mg/dL Creatinine 0.40 L (0.55-1.30) mg/dl Estimated GFR > 60 ML/MIN Glucose 199 H (70-110) MG/DL Calcium 7.9 L (8.5-10.1) mg/dL Magnesium (1.8-2.4) mg/dL Albumin 1.6 L (3.4-5.0) g/dL 04/22/17 Range/Units 05:00 WBC (4.0-10.5) K/mm3 RBC (4.1-5.4) M/mm3 Hgb (12.0-16.0) gm/dl Hct (35-47) % MCV (78-100) fl MCH (26-32) pg MCHC (32-36) g/dl RDW (11.5-14.0) % Plt Count (150-450) K/mm3 MPV (6-9.5) fl Segmented Neutrophils (36.0-66.0) % Lymphocytes (Manual) (24-44) % Monocytes (Manual) (0.0-12.0) % Differential Comment Platelet Estimate (NORMAL) Poikilocytosis Anisocytosis Sodium (136-145) mEq/L Potassium (3.5-5.1) mEq/L Chloride (98-107) mEq/L Carbon Dioxide (21-32) mEq/L Anion Gap (5-15) MEQ/L BUN (9-20) mg/dL Creatinine (0.55-1.30) mg/dl Estimated GFR ML/MIN Glucose (70-110) MG/DL Calcium (8.5-10.1) mg/dL Magnesium 2.1 (1.8-2.4) mg/dL Albumin (3.4-5.0) g/dL Radiology Exams: Radiology Procedures Category Date Time Status CHEST 2 VIEWS (PA AND LAT) Routine Exams 04/22/17 Ordered Multi-Disciplinary Progress Notes: Multi-Disciplinary Progress Notes 04/21/17 13:08 Pharmacy Note by Abram Hurley Central line TPN formula at 60ml/hr will provide around 1630 kcal per day. Will add insulin to prevent sugar spike. Will monitor and adjust as needed. 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 Continue meropenem. WBC countines to improve. Further management per general surgeon. Continue TPN as she continues to be NPO. Code(s): Z90.49 - ACQUIRED ABSENCE OF OTHER SPECIFIED PARTS OF DIGESTIVE TRACT (2) S/P small bowel resection Current Visit: Yes Status: Acute Code(s): Z90.49 - ACQUIRED ABSENCE OF OTHER SPECIFIED PARTS OF DIGESTIVE TRACT (3) Acute respiratory failure with hypoxia Current Visit: Yes Status: Acute Assessment & Plan: She continues to require bipap on and off. Will ask cargoman to see her again as Dr. Espinosa had signed off in his note. Patient continues to require high concentration of oxygen. She does not use oxygen at home. Code(s): J96.01 - ACUTE RESPIRATORY FAILURE WITH HYPOXIA (4) Pericardial effusion Current Visit: Yes Status: Acute Assessment & Plan: Mild on Echo per Dr. Ruiz. Code(s): I31.3 - PERICARDIAL EFFUSION (NONINFLAMMATORY) (5) Bilateral pleural effusion Current Visit: Yes Status: Acute Code(s): J90 - PLEURAL EFFUSION, NOT ELSEWHERE CLASSIFIED (6) Anemia Current Visit: Yes Status: Acute Qualifiers: Anemia type: unspecified type Qualified Code(s): D64.9 - Anemia, unspecified Assessment & Plan: Stable at this time. Monitoring daily. Will check iron levels, Vit B 12 levels. Code(s): D64.9 - ANEMIA, UNSPECIFIED (7) Tobacco abuse Current Visit: Yes Status: Acute Code(s): Z72.0 - TOBACCO USE (8) COPD (chronic obstructive pulmonary disease) Current Visit: Yes Status: Acute Assessment & Plan: Continue spiriva and add Advair. Continue bipap when needed. Continue oxygen. Continue xopenex. (9) Hyperglycemia Current Visit: Yes Status: Acute Code(s): R73.9 - HYPERGLYCEMIA, UNSPECIFIED (10) Sinus tachycardia Current Visit: Yes Status: Acute Assessment & Plan: Restart home metoprolol. Code(s): R00.0 - TACHYCARDIA, UNSPECIFIED (11) Duodenal ulcer Current Visit: Yes Status: Acute Assessment & Plan: Continue protonix IV. (12) Poor nutrition Current Visit: Yes Status: Acute Code(s): E63.9 - NUTRITIONAL DEFICIENCY, UNSPECIFIED
[2017-04-22] MEDS: Merrem 1 GM 1 G in Sodium Chloride 100ML MINI-BAG PLUS 100 ML IV SCH ×2 (09:16→22:08)
[2017-04-22] MEDS: PROTONIX 40 MG IV IV SCH ×2 (09:16→22:18)
[2017-04-22] MEDS: Nicoderm CQ 21 MG TOP SCH (09:16)
--- NOTE | 2017-04-22 09:16 | XRAY ---
Indication: Short of breath and weakness. Comparison: April 18, 2017. PA/lateral chest demonstrates worsening bibasilar infiltrates/atelectasis/effusions with stable medial right apical pleural thickening/effusion. Heart remains within normal limits. New NG tube tip in the stomach and new right arm PICC line.
[2017-04-22] MEDS ORDERED: Toprol Xl 50 MG PO SCH (10:00)
[2017-04-22] MEDS: Advair Hfa 230/21 Mcg COMMON CANISTER IH SCH ×2 (11:02→19:51)
[2017-04-22] MEDS: Zofran 4 MG/2 ML VIAL IV PRN ×2 (11:21→22:08)
[2017-04-22] MEDS: NovoLOG Insulin SQ PRN (11:22)
[2017-04-22] MEDS ORDERED: INTRALIPID 20% 250 ML 250 ML, TPN Electrolytes 40 ML, Multitrace-4 Conc Vial 1 ML*** 1 ... IV SCH ×6 (14:00)
[2017-04-22] MEDS: MORPHINE SULFATE 2 MG INJ IV PRN ×4 (15:30→22:08)
[2017-04-22] MEDS: LOPRESSOR 5 MG/5 ML INJECTION IV PRN (16:55)
[2017-04-22] MEDS: Spiriva 18 Mcg/Cap Inhaler IH SCH (20:56)
[2017-04-22] MEDS ORDERED: Lopressor 50 MG PO SCH (22:00)
[2017-04-23] MEDS: MORPHINE SULFATE 2 MG INJ IV PRN (00:24)
[2017-04-23] MEDS: LOPRESSOR 5 MG/5 ML INJECTION IV PRN ×4 (01:47→20:22)
[2017-04-23] MEDS: NovoLOG Insulin SQ PRN ×3 (04:23→20:23)
[2017-04-23] MEDS: MORPHINE SULFATE 4 MG INJ IV PRN ×3 (04:23→20:23)
[2017-04-23 06:06] LABS: ANION GAP 5.7 MEQ/L (5-15); BLOOD UREA NITROGEN 12 mg/dL (9-20); CHLORIDE 108 mEq/L (98-107); Carbon Dioxide 33.1 mEq/L (21-32); Glucose 198 MG/DL (70-110); Potassium 3.3 mEq/L (3.5-5.1); SODIUM 144 mEq/L (136-145)
[2017-04-23] MEDS: Sodium Chloride 3 ML UD NEBULES IH SCH ×3 (06:39→19:56)
[2017-04-23] MEDS: Xopenex 1.25 MG/0.5 ML UD NEBULE IH SCH ×4 (07:44→23:13)
[2017-04-23 08:20] LABS: A-aADO2 445; ARTERIAL BLD GAS O2 SATURATION 96.4 % (95-100); ARTERIAL BLOOD GAS BASE EXCESS 10.5 (-2.0-2.0); ARTERIAL BLOOD GAS FIO2 80 %; ARTERIAL BLOOD GAS PO2 63 mmHg (75-100); ARTERIAL BLOOD GAS pH 7.46 (7.35-7.45); BIPAP(E) 6; BIPAP(I) 12
[2017-04-23] MEDS ORDERED: Lopressor 25MG Tab PO ONE (08:34)
[2017-04-23] MEDS: Lopressor 50 MG PO SCH ×2 (08:42→22:02)
[2017-04-23] MEDS: solu-MEDROL 125 MG IV SCH ×3 (08:45→22:02)
[2017-04-23] MEDS: Zofran 4 MG/2 ML VIAL IV PRN ×2 (08:45→22:02)
[2017-04-23] MEDS: Ativan 2 MG/1 ML VIAL IV PRN ×4 (08:45→22:13)
[2017-04-23] MEDS: PROTONIX 40 MG IV IV SCH ×2 (08:46→22:01)
--- NOTE | 2017-04-23 08:46 | PCM.NOTE ---
Date and Time: 04/23/17840 Subjective Assessment: She reports she continues to have some abdominal pain. Her nurse reports she did not sleep well the past 2 nights. Her granddaughter is concerned that she is anxious with the bipap on and the patient does not like the bipap. Her nurse reports Dr. Josue did not see her yesterday and told the nurse he had signed off. I have not seen a note from him. I saw one from Dr. Espinosa that said he had signed off but to call if questions/concerns. Coremaker Floor note reviewed and I am trying to reach her for clarification about why we would not try to maximize her calories with tpn. - Review of Systems Constitutional: No Symptoms Eyes: No Symptoms Ears, Nose, & Throat: No Symptoms Respiratory: Short Of Breath Cardiac: No Symptoms Abdominal/Gastrointestinal: Abdominal Pain, Nausea Genitourinary Symptoms: No Symptoms Musculoskeletal: No Symptoms Skin: No Symptoms Objective Exam General Appearance: mild distress, anxiety, other (grand daughter at bedside) Neurologic Exam: alert, cooperative Skin Exam: normal color, warm, dry, No rash Respiratory Exam: other (decreased breath sounds at bases, no wheezing, no crackles) Cardiovascular Exam: tachycardia, other (+2 radial pulses bilat), No murmur, No friction rub, No gallop Gastrointestinal/Abdomen Exam: other (hypoactive bowel sounds, dressings in place, drains in place) Extremity Exam: other (no c/c/e) OBJECTIVE DATA Vital Signs: Vital Signs - 24 hr Temp Pulse Resp BP Pulse Ox 04/23/17 07:44 96.7 F 124 H 22 129/75 96 04/23/17 07:15 144 H 04/23/17 06:00 120 H 20 117/55 90 L 04/23/17 04:00 97.7 F 117 H 19 125/79 91 L 04/23/17 01:54 110 H 24 111/37 94 L 04/23/17 01:45 126 H 24 110/51 88 L 04/23/17 00:00 97.8 F 120 H 22 129/56 94 L 04/22/17 21:55 131 H 24 132/55 92 L 04/22/17 20:00 97.6 F 132 H 21 123/62 91 L 04/22/17 19:51 128 H 26 H 92 L 04/22/17 18:00 124 H 27 H 144/74 93 L 04/22/17 16:02 97.6 F 128 H 19 139/65 96 04/22/17 15:51 129 H 04/22/17 15:00 129 H 24 120/71 93 L 04/22/17 14:21 126 H 24 92 L 04/22/17 14:00 19 04/22/17 13:00 114 H 17 124/52 94 L 04/22/17 12:00 133 H 04/22/17 11:30 97.6 F 133 H 23 118/83 90 L 04/22/17 11:03 96 04/22/17 10:57 128 H 18 126/63 97 04/22/17 09:58 128 H 14 94 L 04/22/17 09:56 14 04/22/17 09:32 144 H 28 H 114/49 88 L Oxygen-Last 24 hours O2 Percentage 60% O2 Percentage 60% O2 Percentage 60% Oxygen Flowrate (L/min)-RT 12 Oxygen Flowrate (L/min)-RT 12 Oxygen Flowrate (L/min)-RT 10 Oxygen Flowrate (L/min)-RT 15 Oxygen Flowrate (L/min)-RT 9 Oxygen Flowrate (L/min)-RT 9 Oxygen Flowrate (L/min)-RT 9 Oxygen Flowrate (L/min)-RT 9 Oxygen Flowrate (L/min)-RT 9 Oxygen Flowrate (L/min)-RT 9 Oxygen Flowrate (L/min)-RT 9 Oxygen Flowrate (L/min)-RT 9 Oxygen Flowrate (L/min)-RT 9 Oxygen Flowrate (L/min)-RT 9 Pain Assessment - Last Documented Pain Intensity 7 Pain Scale Used [facility] Intake and Output: Intake & Output 04/21/17 04/22/17 04/23/17 04/24/17 06:59 06:59 06:59 06:59 Intake Total 3172 2170 1607 Output Total 7608 3150 5420 Balance 4597 -642 -5505 Weight 75.931 kg 74.616 kg 73.4 kg Lab Results: Accuchecks Date 04/23/17 Date 04/22/17 Date 04/22/17 Time 04:00 Time 19:54 Time 11:29 Accucheck Value: 203 Accucheck Value: 196 Accucheck Value: 224 Lab Results-Last 24 Hours 04/22/17 04/22/17 04/22/17 Range/Units 05:00 05:00 Unknown Puncture Site pCO2 (35-45) mmHg pO2 (75-100) mmHg Base Excess (-2.0-2.0) O2 Saturation (94-100) g/dF ABG pH (7.35-7.45) ABG HCO3 (22-28) ABG O2 Sat (Measured) (95-100) % Fox Test A-a Gradient a/A Ratio Hemoglobin Carboxyhemoglobin (0.0-6.9) % THgb Methemoglobin (1.4-1.5) % Temperature C POC O2 Flow Rate % Vent Mode Inspiratory BiPAP Expiratory BiPAP Sodium (136-145) mEq/L Potassium (3.5-5.1) mEq/L Chloride (98-107) mEq/L Carbon Dioxide (21-32) mEq/L Anion Gap (5-15) MEQ/L BUN (9-20) mg/dL Creatinine (0.55-1.30) mg/dl Estimated GFR ML/MIN Glucose (70-110) MG/DL Calcium (8.5-10.1) mg/dL Iron 34 L (50-175) ug/dl TIBC 150 L (250-450) ug/dl Iron Saturation 22.7 (20-39) % NT-Pro-B Natriuret Pep 837 H (0-125) pg/ml Vitamin B12 1019 H (193-986) TSH 3rd Generation 2.086 (0.358-3.740) mIU/L 04/23/17 04/23/17 Range/Units 05:20 08:03 Puncture Site RIGHT BRACHIAL pCO2 50 H (35-45) mmHg pO2 63 L (75-100) mmHg Base Excess 10.5 H (-2.0-2.0) O2 Saturation 93.3 L (94-100) g/dF ABG pH 7.46 H (7.35-7.45) ABG HCO3 35.6 H* (22-28) ABG O2 Sat (Measured) 96.4 (95-100) % Fox Test NOT APPLICABLE A-a Gradient 445 a/A Ratio 0.12 Hemoglobin 9.7 Carboxyhemoglobin 1.6 (0.0-6.9) % THgb Methemoglobin 1.6 H (1.4-1.5) % Temperature 37.0 C POC O2 Flow Rate 80 % Vent Mode BiPAP Inspiratory BiPAP 12 Expiratory BiPAP 6 Sodium 144 (136-145) mEq/L Potassium 3.3 L 3.3 L (3.5-5.1) mEq/L Chloride 108 H (98-107) mEq/L Carbon Dioxide 33.1 H (21-32) mEq/L Anion Gap 5.7 (5-15) MEQ/L BUN 12 (9-20) mg/dL Creatinine 0.47 L (0.55-1.30) mg/dl Estimated GFR > 60 ML/MIN Glucose 198 H (70-110) MG/DL Calcium 8.5 (8.5-10.1) mg/dL Iron (50-175) ug/dl TIBC (250-450) ug/dl Iron Saturation (20-39) % NT-Pro-B Natriuret Pep (0-125) pg/ml Vitamin B12 (193-986) TSH 3rd Generation (0.358-3.740) mIU/L Radiology Exams: Radiology Procedures Category Date Time Status CHEST 2 VIEWS (PA AND LAT) Routine Exams 04/22/17 Completed Multi-Disciplinary Progress Notes: Multi-Disciplinary Progress Notes 04/22/17 15:29 Nutrition Note by Afshan Mcclain F/u Note: Pt remains NPO. Pt inappropriate for EN d/t recent small bowel resect. TPN started 04/21. Rate increased from 60cc/hr to 75cc/hr by 04/22. This provides 2054 kcals and 79 g protein; NPC/N ratio 132:1. Labs 04/22 glu 199, alb 1.6, palb 8.9, hgb 9.1, hct 28.5, fluid balance -980 ml after starting diuretic. wt on 04/20 was 75.9kg--on 04/22 was 74.6 kg. Pt with less than optimal parenteral nutrition r/t physiological causes aeb labs, dx acute respiratory failure, hx COPD, DMII. Recommend change to Triple mix PPN via central line to better meet nutrient needs. Recommend hourly rate of 80cc/hr to provide 1273 kcals (80% est'd need) and 71 g pro for a NPC/N ratio of 88:1-- Adjusting IV fluids as needed to maintain fluid balance. goal #1) glu to decrease #2) improved fluid balance. Will monitor, f/u prn. Mendy MSRDCD Initialized on 04/22/17 15:29 - END OF NOTE Assessment/Plan (1) S/P appendectomy Current Visit: Yes Status: Acute Assessment & Plan: Continue meropenem. White blood cell count has been decreasing. Management per surgeons. Code(s): Z90.49 - ACQUIRED ABSENCE OF OTHER SPECIFIED PARTS OF DIGESTIVE TRACT (2) S/P small bowel resection Current Visit: Yes Status: Acute Assessment & Plan: Management per surgeons. She continues to be npo but we have been able to give her metoprolol by ng. Code(s): Z90.49 - ACQUIRED ABSENCE OF OTHER SPECIFIED PARTS OF DIGESTIVE TRACT (3) Acute respiratory failure with hypoxia Current Visit: Yes Status: Acute Assessment & Plan: Continue bipap. Window Trimmer Apprentice consulted. Code(s): J96.01 - ACUTE RESPIRATORY FAILURE WITH HYPOXIA (4) Pericardial effusion Current Visit: Yes Status: Acute Assessment & Plan: Mild per Dr. Ruiz's report. He is following. Code(s): I31.3 - PERICARDIAL EFFUSION (NONINFLAMMATORY) (5) Bilateral pleural effusion Current Visit: Yes Status: Acute Code(s): J90 - PLEURAL EFFUSION, NOT ELSEWHERE CLASSIFIED (6) Anemia Current Visit: Yes Status: Acute Qualifiers: Anemia type: unspecified type Qualified Code(s): D64.9 - Anemia, unspecified Assessment & Plan: Iron levels low. Will start oral iron when she is able to eat again. Code(s): D64.9 - ANEMIA, UNSPECIFIED (7) Tobacco abuse Current Visit: Yes Status: Acute Assessment & Plan: Nicotine patch in place. Code(s): Z72.0 - TOBACCO USE (8) COPD (chronic obstructive pulmonary disease) Current Visit: Yes Status: Acute Assessment & Plan: Start solumedrol today. Discussed this may increase her WBC count. Continue advair, spiriva, xopenex. Continue incentive spirometry. (9) Hyperglycemia Current Visit: Yes Status: Acute Assessment & Plan: Continue insulin in tpn and also low dose sliding scale. Code(s): R73.9 - HYPERGLYCEMIA, UNSPECIFIED (10) Sinus tachycardia Current Visit: Yes Status: Acute Assessment & Plan: Increase metoprolol from 50 mg bid to 75 mg bid. Continue IV metoprolol as needed. Dr. Ruiz is following this patient. I appreciate his help. Code(s): R00.0 - TACHYCARDIA, UNSPECIFIED (11) Duodenal ulcer Current Visit: Yes Status: Acute Assessment & Plan: Continue protonix 40 mg IV q 12 hours. (12) Poor nutrition Current Visit: Yes Status: Acute Assessment & Plan: TPN started. Trying to clarify with the salt maker her recommendations. Message left on her cell phone as she is not in the hospital today. Code(s): E63.9 - NUTRITIONAL DEFICIENCY, UNSPECIFIED
[2017-04-23] MEDS: Nicoderm CQ 21 MG TOP SCH (08:56)
[2017-04-23] MEDS ORDERED: Cathflo Activase 2 MG IV ONE (09:00)
[2017-04-23] MEDS: Merrem 1 GM 1 G in Sodium Chloride 100ML MINI-BAG PLUS 100 ML IV SCH ×2 (09:03→22:02)
[2017-04-23 09:13] LABS: Mean Cell Volume 94.4 fl (78-100); Mean Platelet Volume 9.6 fl (6-9.5); Platelet Count 262 K/mm3 (150-450); Red Blood Count 3.06 M/mm3 (4.1-5.4); Red Cell Distribution Width 15.2 % (11.5-14.0)
[2017-04-23 09:58] LABS: BAND 10 % (0.0-2.0); Total Cells Counted 100
[2017-04-23 10:01] LABS: Platelet Estimate NORMAL (NORMAL)
[2017-04-23 10:02] LABS: ANISOCYTOSIS 2+; Macrocytosis 1+; Polychromasia 2+
[2017-04-23] MEDS: POTASSIUM CHLORIDE 20 mEq IN WATER 100ML 20 MEQ/100 ML BAG IV SCH ×2 (10:48→12:35)
[2017-04-23] MEDS: Spiriva 18 Mcg/Cap Inhaler IH SCH (11:38)
[2017-04-23] MEDS: Advair Hfa 230/21 Mcg COMMON CANISTER IH SCH (11:39)
[2017-04-23] MEDS: INTRALIPID 20% 250 ML 250 ML, TPN Electrolytes 20 ML, Multitrace-4 Conc Vial 1 ML*** 1 ... IV SCH ×6 (15:05)
[2017-04-23 21:02] LABS: Bacteria FEW /HPF (NEGATIVE); Bilirubin NEGATIVE (NEGATIVE); Blood 50 Ery/ul (0-5); COMPLETE URINE MICROSCOPIC? YES; Collection Type CATH; Epithelial Cells FEW /HPF (FEW); Glucose 100 mg/dL (NEGATIVE); Leukocyte Esterase TRACE (NEGATIVE); WBC 0-2 /HPF (0-5)
[2017-04-24] MEDS: MORPHINE SULFATE 4 MG INJ IV PRN ×3 (00:14→06:24)
[2017-04-24] MEDS: Ativan 2 MG/1 ML VIAL IV PRN ×5 (02:27→20:31)
[2017-04-24] MEDS: Sodium Chloride 3 ML UD NEBULES IH SCH (02:35)
[2017-04-24] MEDS: Advair Hfa 230/21 Mcg COMMON CANISTER IH SCH ×3 (02:35→20:00)
[2017-04-24] MEDS: LOPRESSOR 5 MG/5 ML INJECTION IV PRN ×2 (04:28→10:30)
[2017-04-24 06:18] LABS: Mean Cell Volume 95.2 fl (78-100); Mean Corpuscular Hemoglobin 30.3 pg (26-32); Mean Platelet Volume 9.8 fl (6-9.5); Platelet Count 300 K/mm3 (150-450); Red Cell Distribution Width 15.1 % (11.5-14.0); White Blood Count 16.9 K/mm3 (4.0-10.5)
[2017-04-24] MEDS: solu-MEDROL 125 MG IV SCH ×3 (06:19→21:21)
[2017-04-24 06:58] LABS: ANION GAP 7.1 MEQ/L (5-15); BLOOD UREA NITROGEN 20 mg/dL (9-20); CHLORIDE 107 mEq/L (98-107); Carbon Dioxide 32.7 mEq/L (21-32); Glucose 179 MG/DL (70-110); Potassium 4.4 mEq/L (3.5-5.1); SODIUM 142 mEq/L (136-145)
[2017-04-24] MEDS: Spiriva 18 Mcg/Cap Inhaler IH SCH (06:58)
[2017-04-24 07:01] LABS: ALBUMIN 1.8 g/dL (3.4-5.0); MAGNESIUM 1.9 mg/dL (1.8-2.4); Total Protein 5.1 gm/dL (6.4-8.2)
[2017-04-24] MEDS: Xopenex 1.25 MG/0.5 ML UD NEBULE IH SCH (07:03)
[2017-04-24] MEDS: MORPHINE SULFATE 2 MG INJ IV PRN ×3 (08:22→14:20)
[2017-04-24 08:26] LABS: ANISOCYTOSIS 1+; Platelet Estimate NORMAL (NORMAL); Poikilocytosis 1+; Total Cells Counted 100; Toxic Granulation 2+
[2017-04-24 08:27] LABS: Polychromasia 1+
[2017-04-24] MEDS: Lopressor 50 MG PO SCH ×2 (09:04→21:21)
[2017-04-24] MEDS: PROTONIX 40 MG IV IV SCH ×2 (09:04→21:21)
[2017-04-24] MEDS: Nicoderm CQ 21 MG TOP SCH (09:08)
[2017-04-24] MEDS: Merrem 1 GM 1 G in Sodium Chloride 100ML MINI-BAG PLUS 100 ML IV SCH ×2 (09:08→21:20)
[2017-04-24] MEDS: Zofran 4 MG/2 ML VIAL IV PRN (09:10)
[2017-04-24] MEDS ORDERED: Lopressor 50 MG PO ONE (09:10)
--- NOTE | 2017-04-24 10:31 | PCM.NOTE ---
Date and Time: 04/24/17 1025 Subjective Assessment: She has been tachycardic with intermittent tachycardia frequently 120s-150s. Dr. David Nathan is covering for Dr. Ruiz and ordered her metoprolol to be increased from 75mg per NG BID to 100mg BID. She was on bipap overnight at 80% . Now on 100% oxymask for the past 30 min or so, O2 sat 95%. She did pass gas. The NG tube is still in pending surgery evaluation. She told the nurse this morning to call her daughter as pt was ready to go back to her apartment after I see her. - Review of Systems Constitutional: No Fever Respiratory: Short Of Breath, Other (hypoxemia) Abdominal/Gastrointestinal: Abdominal Pain (controlled with IV morphine) Objective Exam General Appearance: no apparent distress, alert (on oxymask. wakes to touch and voice) Neurologic Exam: oriented x 3 (thinks today is Wednesday, but knows it is April 2017.), cooperative Skin Exam: normal color, warm, dry Respiratory Exam: lungs clear, diminished breath sounds (in RLL), No crackles/ rales, No rhonchi, No wheezing Cardiovascular Exam: normal heart sounds, tachycardia, irregular, No murmur Gastrointestinal/Abdomen Exam: soft, other (dressings c/d/i. IVETTE drain with minimal sero sanguinous drainage. hypoactive bowel sounds, but they are present) , No tenderness, No distention, No guarding, No rebound Extremity Exam: No pedal edema, No swelling (SCDs in place) OBJECTIVE DATA Vital Signs: Vital Signs - 24 hr Temp Pulse Resp BP Pulse Ox 04/24/17 09:00 122 H 23 117/48 94 L 04/24/17 07:55 119 H 04/24/17 07:00 97 F 117 H 26 H 124/66 95 04/24/17 05:00 118 H 26 H 123/91 93 L 04/24/17 04:00 119 H 04/24/17 03:00 97.4 F 119 H 26 H 127/97 92 L 04/24/17 01:00 112 H 21 139/58 97 04/24/17 00:00 97.7 F 113 H 22 161/101 93 L 04/23/17 22:00 107 H 18 126/56 94 L 04/23/17 20:00 97.4 F 120 H 19 130/70 95 04/23/17 19:00 128 H 24 94 L 04/23/17 18:28 115 H 19 93 L 04/23/17 18:00 122 H 35 H 163/79 90 L 04/23/17 16:00 118 H 29 H 152/85 92 L 04/23/17 14:00 115 H 27 H 145/72 93 L 04/23/17 12:00 96.3 F 109 H 21 141/57 98 04/23/17 10:54 111 H 23 150/87 96 Oxygen-Last 24 hours O2 Percentage 80% O2 Percentage 80% O2 Percentage 100% O2 Percentage 100% O2 Percentage 80% O2 Percentage 80% O2 Percentage 80% O2 Percentage 80% O2 Percentage 80% O2 Percentage 80% Oxygen Flowrate (L/min)-RT 15 Oxygen Flowrate (L/min)-RT 15 Oxygen Flowrate (L/min)-RT 15 Oxygen Flowrate (L/min)-RT 15 Pain Assessment - Last Documented Pain Intensity 7 Pain Scale Used 0-10 Pain Scale Intake and Output: Intake & Output 04/21/17 04/22/17 04/23/17 04/24/17 11:59 11:59 11:59 11:59 Intake Total 3178 2170 1607 250 Output Total 2120 2150 2720 1715 Balance 3316 25 -9018 -2088 Weight 75.931 kg 74.616 kg 73.4 kg 73.5 kg Lab Results: Accuchecks Date 04/24/17 Date 04/23/17 Date 04/23/17 Time 04:00 Time 20:00 Time 14:00 Accucheck Value: 191 Accucheck Value: 207 Accucheck Value: 243 Lab Results-Last 24 Hours 04/23/17 04/23/17 04/24/17 Range/Units 17:31 17:45 06:04 WBC (4.0-10.5) K/mm3 RBC (4.1-5.4) M/mm3 Hgb (12.0-16.0) gm/dl Hct (35-47) % MCV (78-100) fl MCH (26-32) pg MCHC (32-36) g/dl RDW (11.5-14.0) % Plt Count (150-450) K/mm3 MPV (6-9.5) fl Segmented Neutrophils (36.0-66.0) % Lymphocytes (Manual) (24-44) % Monocytes (Manual) (0.0-12.0) % Differential Comment Toxic Granulation Platelet Estimate (NORMAL) Polychromasia Poikilocytosis Anisocytosis Sodium 142 (136-145) mEq/L Potassium 4.1 4.4 (3.5-5.1) mEq/L Chloride 107 (98-107) mEq/L Carbon Dioxide 32.7 H (21-32) mEq/L Anion Gap 7.1 (5-15) MEQ/L BUN 20 (9-20) mg/dL Creatinine 0.50 L (0.55-1.30) mg/dl Estimated GFR > 60 ML/MIN Glucose 179 H (70-110) MG/DL Calcium 8.7 (8.5-10.1) mg/dL Magnesium (1.8-2.4) mg/dL Serum Total Protein (6.4-8.2) gm/dL Albumin (3.4-5.0) g/dL Ur Collection Type CATH Urine Color YELLOW (YELLOW) Urine Appearance CLEAR (CLEAR) Urine pH 5.0 (5-6) Ur Specific Casa 1.010 (1.005-1.025) Urine Protein NEGATIVE (Negative) Urine Ketones NEGATIVE (NEGATIVE) Urine Blood 50 (0-5) Jose/ul Urine Nitrite NEGATIVE (NEGATIVE) Urine Bilirubin NEGATIVE (NEGATIVE) Urine Urobilinogen NORMAL (0-1) mg/dL Ur Leukocyte Esterase TRACE (NEGATIVE) Urine Microscopic RBC 2-5 (0-2) /HPF Urine Microscopic WBC 0-2 (0-5) /HPF Ur Epithelial Cells FEW (FEW) /HPF Urine Bacteria FEW (NEGATIVE) /HPF Urine Glucose 100 (NEGATIVE) mg/dL Specimen Received 04/23/17 4024 04/24/17 04/24/17 Range/Units 06:04 06:04 WBC 16.9 H (4.0-10.5) K/mm3 RBC 3.10 L (4.1-5.4) M/mm3 Hgb 9.4 L (12.0-16.0) gm/dl Hct 29.5 L (35-47) % MCV 95.2 (78-100) fl MCH 30.3 (26-32) pg MCHC 31.9 L (32-36) g/dl RDW 15.1 H (11.5-14.0) % Plt Count 300 (150-450) K/mm3 MPV 9.8 H (6-9.5) fl Segmented Neutrophils 87 H (36.0-66.0) % Lymphocytes (Manual) 8 L (24-44) % Monocytes (Manual) 5 (0.0-12.0) % Differential Comment ABNORMAL Toxic Granulation 2+ Platelet Estimate NORMAL (NORMAL) Polychromasia 1+ Poikilocytosis 1+ Anisocytosis 1+ Sodium (136-145) mEq/L Potassium (3.5-5.1) mEq/L Chloride (98-107) mEq/L Carbon Dioxide (21-32) mEq/L Anion Gap (5-15) MEQ/L BUN (9-20) mg/dL Creatinine (0.55-1.30) mg/dl Estimated GFR ML/MIN Glucose (70-110) MG/DL Calcium (8.5-10.1) mg/dL Magnesium 1.9 (1.8-2.4) mg/dL Serum Total Protein 5.1 L (6.4-8.2) gm/dL Albumin 1.8 L (3.4-5.0) g/dL Ur Collection Type Urine Color (YELLOW) Urine Appearance (CLEAR) Urine pH (5-6) Ur Specific Casa (1.005-1.025) Urine Protein (Negative) Urine Ketones (NEGATIVE) Urine Blood (0-5) Jose/ul Urine Nitrite (NEGATIVE) Urine Bilirubin (NEGATIVE) Urine Urobilinogen (0-1) mg/dL Ur Leukocyte Esterase (NEGATIVE) Urine Microscopic RBC (0-2) /HPF Urine Microscopic WBC (0-5) /HPF Ur Epithelial Cells (FEW) /HPF Urine Bacteria (NEGATIVE) /HPF Urine Glucose (NEGATIVE) mg/dL Specimen Received Multi-Disciplinary Progress Notes: Multi-Disciplinary Progress Notes 04/24/17 07:05 Respiratory Note by Tessy Flores PT CONTINUES TO DESAT. TOLD PT SHE NEEDED TO GO BACK ON BIPAP OR INTUBATION WOULD BE OUR ONLY OPTION. SPO2 93% ON NRB 100%. HR STILL REMAINS HIGH XOPENEX TXS CHANGED TO PRN. PLACED ON BIPAP 04/28 89%. SPO2 INC TO 97%. WILL CONTINUE TO MONITOR AND WEAN TOLERATED. Initialized on 04/24/17 07:05 - END OF NOTE Assessment/Plan (1) Acute respiratory failure with hypoxia Current Visit: Yes Status: Acute Assessment & Plan: Her respiratory status with little to no improvement with the addition of IV steroids. Will do CTA chest to rule out PE. Pulmonology aware of pt and offered to transfer if her status worsens. Code(s): J96.01 - ACUTE RESPIRATORY FAILURE WITH HYPOXIA (2) Sinus tachycardia Current Visit: Yes Status: Acute Assessment & Plan: metoprolol increased from 75 per NG BID to 100mg BID today by Dr. Nathan, thank you. Code(s): R00.0 - TACHYCARDIA, UNSPECIFIED (3) S/P appendectomy Current Visit: Yes Status: Acute Assessment & Plan: per surgery, thank you. She is starting to pass gas. WBC have increased a little from 16.0 to 16.9 but we did expect some increase with starting steroids. Code(s): Z90.49 - ACQUIRED ABSENCE OF OTHER SPECIFIED PARTS OF DIGESTIVE TRACT (4) S/P small bowel resection Current Visit: Yes Status: Acute Code(s): Z90.49 - ACQUIRED ABSENCE OF OTHER SPECIFIED PARTS OF DIGESTIVE TRACT (5) delerium Current Visit: Yes Status: Acute Assessment & Plan: Exacerbated by lack of sleep. Oriented for me this morning. (6) Anemia Current Visit: Yes Status: Acute Qualifiers: Anemia type: unspecified type Qualified Code(s): D64.9 - Anemia, unspecified Assessment & Plan: Stable with hgb 9.4 this morning. Code(s): D64.9 - ANEMIA, UNSPECIFIED (7) Bilateral pleural effusion Current Visit: Yes Status: Acute Code(s): J90 - PLEURAL EFFUSION, NOT ELSEWHERE CLASSIFIED (8) COPD (chronic obstructive pulmonary disease) Current Visit: Yes Status: Chronic Assessment & Plan: breathing tx have been made prn since her HR increased with nebulizer treatments. on tiotropium inhaler. (9) Duodenal ulcer Current Visit: Yes Status: Acute Assessment & Plan: on protonix 40mg IV BID. (10) Hyperglycemia Current Visit: Yes Status: Acute Assessment & Plan: on insulin here. BS 190s-low 200s. Code(s): R73.9 - HYPERGLYCEMIA, UNSPECIFIED (11) Pericardial effusion Current Visit: Yes Status: Acute Assessment & Plan: mild per Dr. Ruiz. Code(s): I31.3 - PERICARDIAL EFFUSION (NONINFLAMMATORY) (12) Poor nutrition Current Visit: Yes Status: Acute Assessment & Plan: She is on TPN currently. Code(s): E63.9 - NUTRITIONAL DEFICIENCY, UNSPECIFIED (13) Tobacco abuse Current Visit: Yes Status: Acute Assessment & Plan: she has a nicotine patch. Code(s): Z72.0 - TOBACCO USE
[2017-04-24] MEDS: Diflucan/Saline 0.2G/100ML PREMIX*** 100 ML IV SCH (11:54)
[2017-04-24] MEDS: Lanoxin 0.5 MG/2 ML INJECTION IV SCH ×2 (12:32→18:01)
[2017-04-24] MEDS: INTRALIPID 20% 250 ML 250 ML, TPN Electrolytes 20 ML, Multitrace-4 Conc Vial 1 ML*** 1 ... IV SCH ×6 (14:10)
--- NOTE | 2017-04-24 19:22 | XRAY ---
Indication: Short of breath and tachycardia. Multiple contiguous axial images obtained through the chest using 80 cc Isovue 370 contrast and PE protocol. Comparison: None There is adequate opacification of the pulmonary arteries. No filling defect or pulmonary embolus. Heart is not enlarged. Small pericardial effusion. Aorta is mildly arteriosclerotic without aneurysm. Right arm PICC line with the tip in the SVC. No pathologic mediastinal/hilar lymphadenopathy. NG tube traverses the chest with the tip in the stomach. Examination of the lung parenchyma demonstrates large bilateral pleural effusions occupying at least 50% of the hemithorax. Bilateral lower lobe compressive atelectasis. Minimal left upper lobe infiltrate. 1.4 x 2.0 cm noncalcified mass in the posterior right upper lobe. Bony thorax intact. Limited upper abdomen unremarkable. Impression: 1. Negative pulmonary embolus. 2. Large bilateral pleural effusions with bibasilar compressive atelectasis. 3. Minimal left upper lobe infiltrate. 4. Right upper lobe noncalcified pulmonary mass. 5. Small pericardial effusion. Comment: Preliminary interpretation was made by [facility]. No critical discrepancy. CTDI 36.67
[2017-04-24] MEDS: Xopenex 1.25 MG/0.5 ML UD NEBULE IH PRN ×2 (19:57→23:58)
[2017-04-25] MEDS: Ativan 2 MG/1 ML VIAL IV PRN ×4 (00:14→20:10)
[2017-04-25] MEDS: MORPHINE SULFATE 2 MG INJ IV PRN ×5 (04:37→23:10)
[2017-04-25] MEDS: solu-MEDROL 125 MG IV SCH ×3 (06:16→21:36)
[2017-04-25] MEDS ORDERED: APRESOLINE 20 MG/ML INJ IV ONE (06:55)
[2017-04-25] MEDS: Advair Hfa 230/21 Mcg COMMON CANISTER IH SCH ×2 (07:10→20:27)
[2017-04-25] MEDS: Spiriva 18 Mcg/Cap Inhaler IH SCH (07:10)
[2017-04-25 09:05] LABS: A-aADO2 466; ARTERIAL BLD GAS O2 SATURATION 92.9 % (95-100); ARTERIAL BLOOD GAS BASE EXCESS 11.9 (-2.0-2.0); ARTERIAL BLOOD GAS FIO2 80 %; ARTERIAL BLOOD GAS PO2 49 mmHg (75-100); ARTERIAL BLOOD GAS pH 7.52 (7.35-7.45)
[2017-04-25] MEDS: Lanoxin 0.125MG TABLET PO SCH (09:14)
[2017-04-25] MEDS: Lopressor 50 MG PO SCH ×2 (09:17→21:36)
[2017-04-25] MEDS: Merrem 1 GM 1 G in Sodium Chloride 100ML MINI-BAG PLUS 100 ML IV SCH ×2 (09:18→21:35)
[2017-04-25] MEDS: Nicoderm CQ 21 MG TOP SCH (09:24)
[2017-04-25] MEDS: PROTONIX 40 MG IV IV SCH ×2 (09:35→21:36)
[2017-04-25] MEDS: Diflucan/Saline 0.2G/100ML PREMIX*** 100 ML IV SCH (10:05)
[2017-04-25 12:08] LABS: Mean Cell Volume 94.6 fl (78-100); Mean Platelet Volume 9.6 fl (6-9.5); Platelet Count 370 K/mm3 (150-450); Red Blood Count 3.14 M/mm3 (4.1-5.4); Red Cell Distribution Width 15.3 % (11.5-14.0); White Blood Count 12.2 K/mm3 (4.0-10.5)
[2017-04-25 12:13] LABS: Mean Corpuscular Hemoglobin 30.5 pg (26-32)
[2017-04-25 12:20] LABS: ANION GAP 8.3 MEQ/L (5-15); BLOOD UREA NITROGEN 27 mg/dL (9-20); CHLORIDE 104 mEq/L (98-107); Carbon Dioxide 32.4 mEq/L (21-32); Glucose 207 MG/DL (70-110); Potassium 3.8 mEq/L (3.5-5.1); SODIUM 141 mEq/L (136-145)
[2017-04-25] MEDS: INTRALIPID 20% 250 ML 250 ML, TPN Electrolytes 20 ML, Multitrace-4 Conc Vial 1 ML*** 1 ... IV SCH ×6 (14:05)
--- NOTE | 2017-04-25 15:46 | PCM.NOTE ---
Date and Time: 04/25/17 1540 Subjective Assessment: This morning pt was not able to tolerate Bipap and was on Oxymask. Respiratory and Dr. Josue were discussing intubating and transferring the patient; however, Dr. Eliezer Donaldson came in and did a thoracentesis, removing 600mL of the pleural effusion on the R. Gradually, pt has started feeling better since then. She is on 15L Oxymask, tolerating it well with good O2 sat. Her HR is in the low 100s. Afebrile. She did nap part of the day. She went to radiology for CT abd/pelvis (ordered by surgery) and tolerated it well. - Review of Systems Constitutional: No Fever Respiratory: Short Of Breath Objective Exam General Appearance: no apparent distress, alert Neurologic Exam: cooperative, other (answers questions appropriately) Skin Exam: normal color, warm, dry Ears, Nose, Throat Exam: moist mucous membranes Respiratory Exam: lungs clear, diminished breath sounds, No crackles/rales, No rhonchi, No wheezing Cardiovascular Exam: normal heart sounds, tachycardia, No murmur Gastrointestinal/Abdomen Exam: soft, normal bowel sounds, tenderness ( generalized), other (most dressings removed; midline wound and RUQ wound stapled , well approximated, no erythema or exudate) Extremity Exam: other (SCDs in place), No pedal edema, No swelling OBJECTIVE DATA Vital Signs: Vital Signs - 24 hr Temp Pulse Resp BP BP Pulse Ox 04/25/17 13:00 97.3 F 105 H 18 132/80 97 04/25/17 12:00 103 H 04/25/17 11:00 96.8 F 108 H 33 H 149/80 95 04/25/17 09:14 118 H 151/87 04/25/17 08:55 98 F 102 H 20 102/81 92 L 04/25/17 08:21 113 H 24 93 L 04/25/17 08:00 106 H 04/25/17 07:00 98.2 F 106 H 19 160/83 94 L 04/25/17 05:00 97.8 F 108 H 28 H 157/103 95 04/25/17 03:53 107 H 04/25/17 03:00 97.8 F 112 H 30 H 137/96 94 L 04/25/17 01:00 97.8 F 107 H 28 H 124/90 95 04/24/17 23:59 125 H 04/24/17 23:00 117 H 20 129/59 94 L 04/24/17 20:53 97.8 F 118 H 24 137/61 94 L 04/24/17 20:03 118 H 24 94 L 04/24/17 19:50 110 H 04/24/17 19:00 116 H 31 H 92 L 04/24/17 18:52 97 F 113 H 22 135/61 94 L 04/24/17 17:00 97 F 115 H 22 114/67 91 L 04/24/17 15:59 108 H Oxygen-Last 24 hours O2 Percentage 100% O2 Percentage 100% Oxygen Flowrate (L/min)-RT 15 Oxygen Flowrate (L/min)-RT 15 Oxygen Flowrate (L/min)-RT 15 Oxygen Flowrate (L/min)-RT 15 Oxygen Flowrate (L/min)-RT 16 Oxygen Flowrate (L/min)-RT 16 Oxygen Flowrate (L/min)-RT 16 Oxygen Flowrate (L/min)-RT 16 Oxygen Flowrate (L/min)-RT 16 Oxygen Flowrate (L/min)-RT 12 Pain Assessment - Last Documented Pain Intensity 0 Pain Scale Used 0-10 Pain Scale Intake and Output: Intake & Output 04/23/17 04/24/17 04/25/17 04/26/17 11:59 11:59 11:59 11:59 Intake Total 5793 475 8823 Output Total 5929 1715 2105 Balance -1113 -1465 344 Weight 73.4 kg 73.5 kg 75.5 kg Lab Results: Accuchecks Date 04/25/17 Date 04/25/17 Date 04/24/17 Time 14:20 Time 06:15 Time 22:09 Accucheck Value: 198 Accucheck Value: 176 Accucheck Value: 155 Lab Results-Last 24 Hours 04/25/17 04/25/17 04/25/17 Range/Units 08:45 12:00 12:00 WBC 12.2 H (4.0-10.5) K/mm3 RBC 3.14 L (4.1-5.4) M/mm3 Hgb 9.6 L (12.0-16.0) gm/dl Hct 29.7 L (35-47) % MCV 94.6 (78-100) fl MCH 30.5 (26-32) pg MCHC 32.3 (32-36) g/dl RDW 15.3 H (11.5-14.0) % Plt Count 370 (150-450) K/mm3 MPV 9.6 H (6-9.5) fl Puncture Site RIGHT BRACHIAL pCO2 44 (35-45) mmHg pO2 49 L* (75-100) mmHg Base Excess 11.9 H (-2.0-2.0) O2 Saturation 90.1 L (94-100) g/dF ABG pH 7.52 H (7.35-7.45) ABG HCO3 35.9 H* (22-28) ABG O2 Sat (Measured) 92.9 L (95-100) % Fox Test NOT APPLICABLE A-a Gradient 466 a/A Ratio 0.10 Hemoglobin 9.1 Carboxyhemoglobin 2.0 (0.0-6.9) % THgb Methemoglobin 1.0 L (1.4-1.5) % Potassium 3.7 3.8 (3.5-5.1) Temperature 37.0 C POC O2 Flow Rate 80 % Sodium 141 (136-145) mEq/L Chloride 104 (98-107) mEq/L Carbon Dioxide 32.4 H (21-32) mEq/L Anion Gap 8.3 (5-15) MEQ/L BUN 27 H (9-20) mg/dL Creatinine 0.59 (0.55-1.30) mg/dl Estimated GFR > 60 ML/MIN Glucose 207 H (70-110) MG/DL Calcium 8.7 (8.5-10.1) mg/dL Radiology Exams: Radiology Procedures Category Date Time Status ABDOMEN AND PELVIS W CONTRAST [CT] Urgent Exams 04/25/17 12:43 Taken CHEST 1 VIEW (PORTABLE) Stat Exams 04/25/17 11:13 Taken CHEST WITH CONTRAST [CT] Stat Exams 04/24/17 10:25 Completed CHEST WITH CONTRAST [CT] Urgent Exams 04/25/17 12:43 Taken Assessment/Plan (1) Acute respiratory failure with hypoxia Current Visit: Yes Status: Acute Assessment & Plan: She appears to be doing better since the thoracentesis. Respiratory to repeat an ABG. Code(s): J96.01 - ACUTE RESPIRATORY FAILURE WITH HYPOXIA (2) Pleural effusion Current Visit: Yes Status: Acute Assessment & Plan: Draining the effusion certainly seems to have helped her respiratory status; appreciate Dr. Donaldson this morning. Code(s): J90 - PLEURAL EFFUSION, NOT ELSEWHERE CLASSIFIED (3) Sinus tachycardia Current Visit: Yes Status: Acute Assessment & Plan: Much better on digitalis. Code(s): R00.0 - TACHYCARDIA, UNSPECIFIED (4) S/P appendectomy Current Visit: Yes Status: Acute Code(s): Z90.49 - ACQUIRED ABSENCE OF OTHER SPECIFIED PARTS OF DIGESTIVE TRACT (5) S/P small bowel resection Current Visit: Yes Status: Acute Assessment & Plan: CT scan pending per surgery. Code(s): Z90.49 - ACQUIRED ABSENCE OF OTHER SPECIFIED PARTS OF DIGESTIVE TRACT (6) delerium Current Visit: Yes Status: Acute Assessment & Plan: Has been oriented for me. (7) Anemia Current Visit: Yes Status: Acute Qualifiers: Anemia type: unspecified type Qualified Code(s): D64.9 - Anemia, unspecified Assessment & Plan: stable, hgb 9.6. Code(s): D64.9 - ANEMIA, UNSPECIFIED (8) Bilateral pleural effusion Current Visit: Yes Status: Acute Code(s): J90 - PLEURAL EFFUSION, NOT ELSEWHERE CLASSIFIED (9) Acute renal injury Current Visit: Yes Status: Acute Assessment & Plan: improved; recheck in a.m. Code(s): N17.9 - ACUTE KIDNEY FAILURE, UNSPECIFIED (10) COPD (chronic obstructive pulmonary disease) Current Visit: Yes Status: Chronic (11) Duodenal ulcer Current Visit: Yes Status: Acute (12) Hyperglycemia Current Visit: Yes Status: Acute Assessment & Plan: BS mostly mid to upper 100s. Code(s): R73.9 - HYPERGLYCEMIA, UNSPECIFIED (13) Pericardial effusion Current Visit: Yes Status: Acute Assessment & Plan: Dr. Ruiz is aware. Code(s): I31.3 - PERICARDIAL EFFUSION (NONINFLAMMATORY) (14) Poor nutrition Current Visit: Yes Status: Acute Assessment & Plan: on TPN Code(s): E63.9 - NUTRITIONAL DEFICIENCY, UNSPECIFIED (15) Tobacco abuse Current Visit: Yes Status: Acute Code(s): Z72.0 - TOBACCO USE
[2017-04-25 15:55] LABS: A-aADO2 468; ARTERIAL BLD GAS O2 SATURATION 93.1 % (95-100); ARTERIAL BLOOD GAS BASE EXCESS 11.5 (-2.0-2.0); ARTERIAL BLOOD GAS FIO2 80 %; ARTERIAL BLOOD GAS PO2 51 mmHg (75-100); ARTERIAL BLOOD GAS pH 7.54 (7.35-7.45)
[2017-04-25 17:06] LABS: A-aADO2 614; ARTERIAL BLD GAS O2 SATURATION 94.9 % (95-100); ARTERIAL BLOOD GAS BASE EXCESS 11.9 (-2.0-2.0); ARTERIAL BLOOD GAS FIO2 100 %; ARTERIAL BLOOD GAS PO2 54 mmHg (75-100); ARTERIAL BLOOD GAS pH 7.59 (7.35-7.45)
--- NOTE | 2017-04-25 19:38 | XRAY ---
Indication: Postop right thoracentesis pain. Lung cancer. Multiple contiguous axial images obtained through the chest using 80 cc Isovue 370 contrast. Comparison: One day earlier Interval marked diminished right effusion presumed from recent thoracentesis. There remains tiny effusion near the base and residual right lower lobe infiltrate/atelectasis. No pneumothorax. Stable right upper lobe 1.4 x 2.0 cm noncalcified mass, 1.5 x 1.2 cm left upper lobe noncalcified mass, medial right upper lobe subsegmental atelectasis, large left effusion, and left lower lobe atelectasis. Heart is not enlarged. Aorta remains mildly arteriosclerotic without aneurysm/dissection.. No pathologic mediastinal/hilar lymphadenopathy. Stable right arm PICC line and NG tube. Bony thorax intact. CT abdomen reported separately. Impression: 1. Interval diminished right effusion with residual right lower lobe infiltrate/atelectasis presumed from recent thoracentesis. No pneumothorax. 2. Stable large left effusion, left lower lobe atelectasis, and right upper lobe subsegmental atelectasis. 3. Stable right upper and left upper lobe noncalcified masses. Comment: Preliminary interpretation was made by C. No discrepancy. CTDI 17.62
--- NOTE | 2017-04-25 19:40 | XRAY ---
Indication: Status post right thoracentesis. Comparison: April 22, 2017. Portable chest demonstrates markedly diminished right effusion with residual right base infiltrate/atelectasis consistent with thoracentesis. No pneumothorax. Stable medial right apical pleural thickening. Interval increasing large left base infiltrate/atelectasis/effusion. Heart is not enlarged. Stable NG tube and right arm PICC line. Impression: 1. Interval diminished right effusion/infiltrate/atelectasis consistent with recent thoracentesis. No pneumothorax. 2. Worsening left base infiltrate/atelectasis/effusion. Comment: Preliminary interpretation was made by [facility]. No discrepancy.
--- NOTE | 2017-04-25 19:55 | XRAY ---
Indication: Postop pain. History lung cancer. Multiple contiguous axial images obtained through the abdomen and pelvis using 80 cc Isovue 370 contrast only. Comparison: April 18, 2017. CT chest reported separately. There has been interval appendectomy with bilateral pelvic percutaneous surgical drainage tubing in situ. Also new Ybarra catheter in the bladder lumen and new NG tube tip in the stomach. There is now mild presacral edema. No walled off fluid collection or free air. Uterus remains prominent and heterogeneous presumed fibroid. Noncontrasted stomach and bowel loops appear nonobstructed. Gallbladder moderately distended again with tiny gravel/sludge. Stable 8 x 10 mm noncalcified left adrenal mass. Remaining liver, pancreas, spleen, right adrenal gland, kidneys, and ureters appear unremarkable. There remains mild aortoiliac calcifications. No AAA or pathologic retroperitoneal lymphadenopathy. Impression: 1. Status post appendectomy with percutaneous surgical drainage tubing. 2. New presacral edema. No walled off fluid collection or free air. 3. Stable uterine fibroid, left adrenal gland mass, and tiny gallbladder gravel/sludge. Comment: Preliminary interpretation was made by C. No discrepancy. CTDI 17.62
[2017-04-26] MEDS: Ativan 2 MG/1 ML VIAL IV PRN ×5 (00:32→22:25)
[2017-04-26] MEDS: MORPHINE SULFATE 2 MG INJ IV PRN ×4 (01:51→21:01)
[2017-04-26] MEDS: solu-MEDROL 125 MG IV SCH ×3 (05:33→21:35)
[2017-04-26 06:35] LABS: Mean Cell Volume 95.8 fl (78-100); Mean Corpuscular Hemoglobin 30.8 pg (26-32); Mean Platelet Volume 9.9 fl (6-9.5); Platelet Count 340 K/mm3 (150-450); Red Blood Count 2.37 M/mm3 (4.1-5.4); Red Cell Distribution Width 15.6 % (11.5-14.0); White Blood Count 11.4 K/mm3 (4.0-10.5)
[2017-04-26] MEDS: NovoLOG Insulin SQ PRN ×2 (07:05→21:55)
[2017-04-26 07:21] LABS: ALBUMIN 1.6 g/dL (3.4-5.0); ANION GAP 10.1 MEQ/L (5-15); BLOOD UREA NITROGEN 33 mg/dL (9-20); CHLORIDE 107 mEq/L (98-107); Carbon Dioxide 29.3 mEq/L (21-32); Glucose 186 MG/DL (70-110); MAGNESIUM 1.9 mg/dL (1.8-2.4); Potassium 3.7 mEq/L (3.5-5.1); SODIUM 143 mEq/L (136-145); Total Protein 4.1 gm/dL (6.4-8.2)
[2017-04-26] MEDS: Advair Hfa 230/21 Mcg COMMON CANISTER IH SCH ×2 (07:39→20:42)
[2017-04-26] MEDS: Spiriva 18 Mcg/Cap Inhaler IH SCH (07:39)
[2017-04-26 08:19] LABS: Total Cells Counted 100
[2017-04-26 08:20] LABS: ANISOCYTOSIS 1+; Platelet Estimate NORMAL (NORMAL); Poikilocytosis 1+; Polychromasia 1+
--- NOTE | 2017-04-26 09:06 | PCM.NOTE ---
Date and Time: 04/26/17905 Subjective Assessment: Ms. Cool states she feels better. She was started on fluconazole over the weekend by DR. Sandoval for yeast in her sputum. Started on digoxin for tachycardia by Dr. Ruiz. She started having black stools overnight that were heme positive. She continues to require high amounts of oxygen. Dr. Dariela Donaldson did a thoracentesis on one side for the pleural effusion to try to help with her respiratory status. - Review of Systems Constitutional: No Symptoms Eyes: No Symptoms Ears, Nose, & Throat: No Symptoms Respiratory: Cough, Short Of Breath Cardiac: No Symptoms Abdominal/Gastrointestinal: Abdominal Pain Genitourinary Symptoms: No Symptoms Musculoskeletal: No Symptoms Skin: No Symptoms Neurological: No Symptoms Objective Exam General Appearance: mild distress, other (On high flow oxygen almost 100%) Neurologic Exam: alert, cooperative, normal mood/affect Skin Exam: normal color, warm, dry, No rash Respiratory Exam: other (clear when auscultated anteriorly.), No crackles/rales , No rhonchi, No wheezing Cardiovascular Exam: tachycardia, No murmur, No friction rub, No gallop Gastrointestinal/Abdomen Exam: soft, normal bowel sounds, other (incisions clean /dry/intact, drains in place) Extremity Exam: other (trace edema, no c/c) OBJECTIVE DATA Vital Signs: Vital Signs - 24 hr Temp Pulse Resp BP BP Pulse Ox 04/26/17 07:39 100 H 20 95 04/26/17 05:00 97.9 F 106 H 29 H 119/45 93 L 04/26/17 04:00 96 H 04/26/17 02:57 97.9 F 99 H 28 H 141/45 91 L 04/26/17 01:00 97.9 F 96 H 19 120/54 96 04/26/17 00:00 98 H 04/25/17 23:00 97.9 F 100 H 20 83/39 96 04/25/17 21:00 97.9 F 100 H 20 109/40 95 04/25/17 20:00 102 H 04/25/17 19:00 97.9 F 101 H 20 133/57 96 04/25/17 17:00 97.9 F 91 H 21 138/55 96 04/25/17 16:00 101 H 04/25/17 15:00 97.7 F 100 H 19 138/55 96 04/25/17 13:00 97.3 F 105 H 18 132/80 97 04/25/17 12:00 103 H 04/25/17 11:00 96.8 F 108 H 33 H 149/80 95 04/25/17 09:14 118 H 151/87 Oxygen-Last 24 hours O2 Percentage 100% O2 Percentage 100% O2 Percentage 100% O2 Percentage 100% O2 Percentage 100% O2 Percentage 100% O2 Percentage 100% Oxygen Flowrate (L/min)-RT 40 Oxygen Flowrate (L/min)-RT 40 Oxygen Flowrate (L/min)-RT 15 Oxygen Flowrate (L/min)-RT 15 Oxygen Flowrate (L/min)-RT 15 Pain Assessment - Last Documented Pain Intensity 6 Pain Scale Used 0-10 Pain Scale Intake and Output: Intake & Output 04/24/17 04/25/17 04/26/17 04/27/17 06:59 06:59 06:59 06:59 Intake Total 250 2449 1955 Output Total 1715 2105 2470 Balance -1465 344 -515 Weight 73.5 kg 75.5 kg 75.3 kg Lab Results: Accuchecks Date 04/26/17 Date 04/25/17 Date 04/25/17 Time 07:06 Time 22:00 Time 14:20 Accucheck Value: 173 Accucheck Value: 198 Lab Results-Last 24 Hours 04/25/17 04/25/17 04/25/17 Range/Units 08:45 12:00 12:00 WBC 12.2 H (4.0-10.5) K/mm3 RBC 3.14 L (4.1-5.4) M/mm3 Hgb 9.6 L (12.0-16.0) gm/dl Hct 29.7 L (35-47) % MCV 94.6 (78-100) fl MCH 30.5 (26-32) pg MCHC 32.3 (32-36) g/dl RDW 15.3 H (11.5-14.0) % Plt Count 370 (150-450) K/mm3 MPV 9.6 H (6-9.5) fl Segmented Neutrophils (36.0-66.0) % Lymphocytes (Manual) (24-44) % Differential Comment Platelet Estimate (NORMAL) Polychromasia Poikilocytosis Anisocytosis Puncture Site RIGHT BRACHIAL pCO2 44 (35-45) mmHg pO2 49 L* (75-100) mmHg Base Excess 11.9 H (-2.0-2.0) O2 Saturation 90.1 L (94-100) g/dF ABG pH 7.52 H (7.35-7.45) ABG HCO3 35.9 H* (22-28) ABG O2 Sat (Measured) 92.9 L (95-100) % Fox Test NOT APPLICABLE A-a Gradient 466 a/A Ratio 0.10 Hemoglobin 9.1 Carboxyhemoglobin 2.0 (0.0-6.9) % THgb Methemoglobin 1.0 L (1.4-1.5) % Potassium 3.7 3.8 (3.5-5.1) Temperature 37.0 C POC O2 Flow Rate 80 % Sodium 141 (136-145) mEq/L Chloride 104 (98-107) mEq/L Carbon Dioxide 32.4 H (21-32) mEq/L Anion Gap 8.3 (5-15) MEQ/L BUN 27 H (9-20) mg/dL Creatinine 0.59 (0.55-1.30) mg/dl Estimated GFR > 60 ML/MIN Glucose 207 H (70-110) MG/DL Calcium 8.7 (8.5-10.1) mg/dL Magnesium (1.8-2.4) mg/dL Serum Total Protein (6.4-8.2) gm/dL Albumin (3.4-5.0) g/dL Stool Occult Blood (Negative) 04/25/17 04/25/17 04/26/17 Range/Units 15:47 17:00 05:00 WBC (4.0-10.5) K/mm3 RBC (4.1-5.4) M/mm3 Hgb (12.0-16.0) gm/dl Hct (35-47) % MCV (78-100) fl MCH (26-32) pg MCHC (32-36) g/dl RDW (11.5-14.0) % Plt Count (150-450) K/mm3 MPV (6-9.5) fl Segmented Neutrophils (36.0-66.0) % Lymphocytes (Manual) (24-44) % Differential Comment Platelet Estimate (NORMAL) Polychromasia Poikilocytosis Anisocytosis Puncture Site RIGHT BRACHIAL RIGHT BRACHIAL pCO2 41 36 (35-45) mmHg pO2 51 L 54 L (75-100) mmHg Base Excess 11.5 H 11.9 H (-2.0-2.0) O2 Saturation 90.4 L 92.8 L (94-100) g/dF ABG pH 7.54 H 7.59 H* (7.35-7.45) ABG HCO3 35.1 H* 34.5 H* (22-28) ABG O2 Sat (Measured) 93.1 L 94.9 L (95-100) % Fox Test NOT APPLICABLE NOT APPLICABLE A-a Gradient 468 614 a/A Ratio 0.10 0.08 Hemoglobin 9.6 8.8 Carboxyhemoglobin 1.8 1.9 (0.0-6.9) % THgb Methemoglobin 1.1 L 0.4 L (1.4-1.5) % Potassium 3.8 3.6 (3.5-5.1) Temperature 37.0 37.0 C POC O2 Flow Rate 80 100 % Sodium (136-145) mEq/L Chloride (98-107) mEq/L Carbon Dioxide (21-32) mEq/L Anion Gap (5-15) MEQ/L BUN (9-20) mg/dL Creatinine (0.55-1.30) mg/dl Estimated GFR ML/MIN Glucose (70-110) MG/DL Calcium (8.5-10.1) mg/dL Magnesium (1.8-2.4) mg/dL Serum Total Protein (6.4-8.2) gm/dL Albumin (3.4-5.0) g/dL Stool Occult Blood POSITIVE (Negative) 04/26/17 04/26/17 Range/Units 06:02 06:02 WBC 11.4 H (4.0-10.5) K/mm3 RBC 2.37 L (4.1-5.4) M/mm3 Hgb 7.3 L (12.0-16.0) gm/dl Hct 22.7 L (35-47) % MCV 95.8 (78-100) fl MCH 30.8 (26-32) pg MCHC 32.2 (32-36) g/dl RDW 15.6 H (11.5-14.0) % Plt Count 340 (150-450) K/mm3 MPV 9.9 H (6-9.5) fl Segmented Neutrophils 97 H (36.0-66.0) % Lymphocytes (Manual) 3 L (24-44) % Differential Comment ABNORMAL Platelet Estimate NORMAL (NORMAL) Polychromasia 1+ Poikilocytosis 1+ Anisocytosis 1+ Puncture Site pCO2 (35-45) mmHg pO2 (75-100) mmHg Base Excess (-2.0-2.0) O2 Saturation (94-100) g/dF ABG pH (7.35-7.45) ABG HCO3 (22-28) ABG O2 Sat (Measured) (95-100) % Fox Test A-a Gradient a/A Ratio Hemoglobin Carboxyhemoglobin (0.0-6.9) % THgb Methemoglobin (1.4-1.5) % Potassium 3.7 (3.5-5.1) Temperature C POC O2 Flow Rate % Sodium 143 (136-145) mEq/L Chloride 107 (98-107) mEq/L Carbon Dioxide 29.3 (21-32) mEq/L Anion Gap 10.1 (5-15) MEQ/L BUN 33 H (9-20) mg/dL Creatinine 0.55 (0.55-1.30) mg/dl Estimated GFR > 60 ML/MIN Glucose 186 H (70-110) MG/DL Calcium 8.2 L (8.5-10.1) mg/dL Magnesium 1.9 (1.8-2.4) mg/dL Serum Total Protein 4.1 L (6.4-8.2) gm/dL Albumin 1.6 L (3.4-5.0) g/dL Stool Occult Blood (Negative) Radiology Exams: Radiology Procedures Category Date Time Status ABDOMEN AND PELVIS W CONTRAST [CT] Urgent Exams 04/25/17 12:43 Completed CHEST 1 VIEW (PORTABLE) Stat Exams 04/25/17 11:13 Completed CHEST WITH CONTRAST [CT] Stat Exams 04/24/17 10:25 Completed CHEST WITH CONTRAST [CT] Urgent Exams 04/25/17 12:43 Completed Multi-Disciplinary Progress Notes: Multi-Disciplinary Progress Notes 04/25/17 17:29 Respiratory Note by Tessy Flores [address] sandoval via phone about latest abg results. also discussed pts clinical condition. rr- 20 hr less than 100 pt also states she is breathing much better, appears to be resting very comfertably. also discussed pt condition with house supervisorand pt emily. dr sandoval and everyone involved fell she is improving and that we will closly monitor and notify physicans of any negative changes in pt condition. Initialized on 04/25/17 17:29 - END OF NOTE 04/25/17 16:43 Respiratory Note by Tessy Flores FLOW INC TO 40L Initialized on 04/25/17 16:43 - END OF NOTE 04/25/17 16:30 Respiratory Note by Tessy Flores 1610 STILL HAVING DIFFICULTIES WITH SPO2. PO2 ON LAST ABG 51 WITH 93%SAT. PT PLACED ON HIFLOW 100% 35L PT LESS DYSPENIC SPO2 INC TO 95. TALKED WITH DR SANDOVAL ABOUT LATEST RESULTS, AND CHANGE IN MODALITY. WILL REPEAT ABG AT 1700 AND RE- EVAL Initialized on 04/25/17 16:30 - END OF NOTE Assessment/Plan (1) S/P appendectomy Current Visit: Yes Status: Acute Assessment & Plan: Continue meropenem, management per surgeons. Code(s): Z90.49 - ACQUIRED ABSENCE OF OTHER SPECIFIED PARTS OF DIGESTIVE TRACT (2) S/P small bowel resection Current Visit: Yes Status: Acute Code(s): Z90.49 - ACQUIRED ABSENCE OF OTHER SPECIFIED PARTS OF DIGESTIVE TRACT (3) Acute respiratory failure with hypoxia Current Visit: Yes Status: Acute Assessment & Plan: Pulmonolgist consulted and following patient. Continue high flow oxygen. Code(s): J96.01 - ACUTE RESPIRATORY FAILURE WITH HYPOXIA (4) Pericardial effusion Current Visit: Yes Status: Acute Code(s): I31.3 - PERICARDIAL EFFUSION ( NONINFLAMMATORY) (5) Bilateral pleural effusion Current Visit: Yes Status: Acute Assessment & Plan: S/p thoracentesis on one side. Surgeon may do thoracentesis on second side today. Code(s): J90 - PLEURAL EFFUSION, NOT ELSEWHERE CLASSIFIED (6) Anemia Current Visit: Yes Status: Acute Qualifiers: Anemia type: unspecified type Qualified Code(s): D64.9 - Anemia, unspecified Assessment & Plan: Patient with hx of large gastric ulcer and now drop in Hgb as well as heme positive stools. Will transfuse 2 units PRBCs. Code(s): D64.9 - ANEMIA, UNSPECIFIED (7) Tobacco abuse Current Visit: Yes Status: Acute Code(s): Z72.0 - TOBACCO USE (8) COPD (chronic obstructive pulmonary disease) Current Visit: Yes Status: Chronic Assessment & Plan: On antibiotics, IV steroids, oxygen, spiriva, advair and xopenex. On diflucan for yeast in sputum. (9) Hyperglycemia Current Visit: Yes Status: Acute Assessment & Plan: She has insulin in her TPN. Code(s): R73.9 - HYPERGLYCEMIA, UNSPECIFIED (10) Sinus tachycardia Current Visit: Yes Status: Acute Assessment & Plan: Improved on digoxin. She is also on metoprolol. Code(s): R00.0 - TACHYCARDIA, UNSPECIFIED (11) Duodenal ulcer Current Visit: Yes Status: Acute Assessment & Plan: Continue protonix IV bid. (12) Poor nutrition Current Visit: Yes Status: Acute Assessment & Plan: Continue TPN as she is currently npo. Code(s): E63.9 - NUTRITIONAL DEFICIENCY, UNSPECIFIED
[2017-04-26] MEDS: PROTONIX 40 MG IV IV SCH ×2 (10:33→21:36)
[2017-04-26] MEDS: Merrem 1 GM 1 G in Sodium Chloride 100ML MINI-BAG PLUS 100 ML IV SCH ×2 (10:36→21:35)
[2017-04-26] MEDS: Nicoderm CQ 21 MG TOP SCH (10:48)
[2017-04-26] MEDS: Lanoxin 0.125MG TABLET PO SCH (10:52)
[2017-04-26] MEDS: Lopressor 50 MG PO SCH ×2 (10:53→21:36)
[2017-04-26] MEDS: Diflucan/Saline 0.2G/100ML PREMIX*** 100 ML IV SCH (11:19)
--- NOTE | 2017-04-26 14:35 | OP ---
SURGERY DATE/TIME: 04/25/2017 PREOPERATIVE DIAGNOSIS: Bilateral pleural effusion. POSTOPERATIVE DIAGNOSIS: Bilateral pleural effusion. PROCEDURES: 1) Right thoracentesis. 2) Ultrasound guidance and interpretation for right thoracentesis. SURGEON: Eliezer Donaldson M.D. ANESTHESIA: 5 cc of 1% Lidocaine. SPECIMEN: Pleural fluid for culture, gram stain and laboratory studies. ESTIMATED BLOOD LOSS: Minimal. COMPLICATIONS: None. FINDINGS: 600 cc of straw-colored fluid. PATIENT PRESENATATION: This 76 year-old female initially presented with perforated appendicitis and is status post appendectomy and small bowel resection. She has had a postoperative course complicated by respiratory distress which has been getting worse over the last day. Yesterday showed large bilateral pleural effusions with the right being larger than the left. After extensive discussion of the risks and benefits of thoracentesis with the patient and family member, they wished to proceed with bedside thoracentesis. DESCRIPTION OF PROCEDURE: The procedure was performed in the ICU at bedside. The patient was placed upright sitting leaned over. Ultrasound was then used to evaluate the pleural effusion and to choose a good location for thoracentesis posteriorly several rib spaces below the scapula and the mid axillary line. A rib space was chosen with a large amount of pleural effusion on ultrasound and this was marked. Next, the area was widely prepped and draped. Time out was performed. Sterile gown and gloves were put on and the area was localized with 1% lidocaine. The needle used for local was then inserted into the chest over the rib while drawing back and then the fluid was aspirated. Next, a scalpel was used to make a small fuentes in the skin. Next, the thoracentesis needle and catheter were inserted into the skin and over the rib while drawing back on the syringe and into the pleural cavity. Fluid was aspirated and then the catheter was advanced over the needle and into the chest. The catheter was then hooked up to a vacuum bottle and the fluid was allowed to drain out of the chest. There were approximately 600 cc of fluid removed. Some of the fluid was sent separately in specimen containers to the lab. The catheter was drawn back and further aspirated until nothing further drained. The catheter was then removed and a bandage placed over the incision. The patient tolerated the procedure very well and post-procedure chest x-ray showed no pneumothorax and near complete resolution of the pleural effusion. The patient remains in guarded condition in the ICU.
[2017-04-26] MEDS: Sodium Chloride 0.9% 500 ML 500 ML IV SCH (14:44)
[2017-04-26] MEDS: INTRALIPID 20% 250 ML 250 ML, TPN Electrolytes 20 ML, Multitrace-4 Conc Vial 1 ML*** 1 ... IV SCH ×6 (15:03)
[2017-04-26] MEDS ORDERED: Lasix 20 MG/2 ML IV PRN (15:30)
[2017-04-27] MEDS: MORPHINE SULFATE 2 MG INJ IV PRN ×8 (00:29→23:41)
[2017-04-27] MEDS: Ativan 2 MG/1 ML VIAL IV PRN ×4 (02:01→16:09)
[2017-04-27] MEDS: solu-MEDROL 125 MG IV SCH ×2 (05:46→21:08)
[2017-04-27 06:19] LABS: Mean Cell Volume 91.2 fl (78-100); Mean Platelet Volume 10.3 fl (6-9.5); Platelet Count 258 K/mm3 (150-450); Red Blood Count 3.39 M/mm3 (4.1-5.4); Red Cell Distribution Width 15.4 % (11.5-14.0); White Blood Count 13.3 K/mm3 (4.0-10.5)
[2017-04-27 06:23] LABS: Mean Corpuscular Hemoglobin 30.3 pg (26-32)
[2017-04-27 06:49] LABS: ANION GAP 9.2 MEQ/L (5-15); BLOOD UREA NITROGEN 35 mg/dL (9-20); CHLORIDE 106 mEq/L (98-107); Carbon Dioxide 29.4 mEq/L (21-32); Glucose 172 MG/DL (70-110); Potassium 3.9 mEq/L (3.5-5.1); SODIUM 141 mEq/L (136-145)
[2017-04-27] MEDS: Advair Hfa 230/21 Mcg COMMON CANISTER IH SCH ×2 (07:38→18:31)
[2017-04-27] MEDS: Spiriva 18 Mcg/Cap Inhaler IH SCH (07:42)
--- NOTE | 2017-04-27 08:32 | PCM.NOTE ---
Date and Time: 04/27/17826 Subjective Assessment: Patient reports she continues to have a cough and at times has trouble breathing. She denies much abdominal pain. She received the [address] Josue saw her yesterday. Her nurse reports she hasn't needed any doses of IV metoprolol since Wednesday. - Review of Systems Constitutional: No Symptoms Eyes: No Symptoms Ears, Nose, & Throat: No Symptoms Respiratory: Cough, Short Of Breath Cardiac: No Symptoms Abdominal/Gastrointestinal: Abdominal Pain, Diarrhea, Other (some blood in stools per nurses) Genitourinary Symptoms: Other (keith in place) Objective Exam General Appearance: no apparent distress, other (Patient sleeping, easily arrousable and answers questions appropriately.) Neurologic Exam: alert, cooperative Skin Exam: normal color, warm, dry Respiratory Exam: other (CTA when auscultated anteriorly), No crackles/rales, No rhonchi, No wheezing Cardiovascular Exam: regular rate/rhythm, normal heart sounds, No murmur, No friction rub, No gallop Gastrointestinal/Abdomen Exam: other (hypoactive bowel sounds, incisions intact , no tenderness) Extremity Exam: other (trace edema, no c/c) OBJECTIVE DATA Vital Signs: Vital Signs - 24 hr Temp Pulse Resp BP BP Pulse Ox 04/27/17 07:54 92 H 04/27/17 07:53 93 H 16 100 04/27/17 07:00 97 F 91 H 21 145/74 94 L 04/27/17 05:00 98.1 F 100 H 21 145/79 94 L 04/27/17 03:56 91 H 04/27/17 03:00 91 H 21 123/54 98 04/27/17 01:00 97.9 F 93 H 22 132/53 98 04/27/17 00:00 92 H 04/26/17 23:00 100 H 25 H 148/71 90 L 04/26/17 21:00 98.1 F 105 H 21 127/59 96 04/26/17 20:53 105 H 23 94 L 04/26/17 20:00 105 H 04/26/17 19:00 99 H 25 H 109/49 98 04/26/17 17:00 97.9 F 95 H 21 127/60 96 04/26/17 15:50 96 H 04/26/17 15:00 97.3 F 92 H 23 104/48 95 04/26/17 13:00 97.4 F 94 H 24 141/54 96 04/26/17 12:00 103 H 04/26/17 11:00 110 H 21 123/55 94 L 04/26/17 10:52 108 H 112/41 04/26/17 09:00 102 H 23 117/46 96 Oxygen-Last 24 hours O2 Percentage 100% Oxygen Flowrate (L/min)-RT 40 Oxygen Flowrate (L/min)-RT 40 Oxygen Flowrate (L/min)-RT 40 Oxygen Flowrate (L/min)-RT 40 Oxygen Flowrate (L/min)-RT 40 Oxygen Flowrate (L/min)-RT 40 Oxygen Flowrate (L/min)-RT 40 Pain Assessment - Last Documented Pain Intensity 8 Pain Scale Used 0-10 Pain Scale Intake and Output: Intake & Output 04/25/17 04/26/17 04/27/17 04/28/17 06:59 06:59 06:59 06:59 Intake Total 2449 1955 3019 Output Total 2105 2470 2115 0 Balance 344 -515 904 0 Weight 75.5 kg 75.3 kg 75.115 kg Lab Results: Accuchecks Date 04/27/17 Date 04/26/17 Time 05:43 Time 22:00 Accucheck Value: 174 Accucheck Value: 207 Accucheck Value: 184 Lab Results-Last 24 Hours 04/26/17 04/26/17 04/26/17 Range/Units 10:00 10:00 21:40 WBC (4.0-10.5) K/mm3 RBC (4.1-5.4) M/mm3 Hgb 11.0 L (12.0-16.0) gm/dl Hct 33.8 L (35-47) % MCV (78-100) fl MCH (26-32) pg MCHC (32-36) g/dl RDW (11.5-14.0) % Plt Count (150-450) K/mm3 MPV (6-9.5) fl Sodium (136-145) mEq/L Potassium (3.5-5.1) mEq/L Chloride (98-107) mEq/L Carbon Dioxide (21-32) mEq/L Anion Gap (5-15) MEQ/L BUN (9-20) mg/dL Creatinine (0.55-1.30) mg/dl Estimated GFR ML/MIN Glucose (70-110) MG/DL Calcium (8.5-10.1) mg/dL Digoxin (0.5-1.5) ng/ml ABO Group B Rh Factor NEGATIVE Antibody Screen NEGATIVE (NEGATIVE) Crossmatch COMPATIBLE COMPATIBLE (COMPATIBLE) 04/27/17 04/27/17 04/27/17 Range/Units 06:07 06:07 06:07 WBC 13.3 H (4.0-10.5) K/mm3 RBC 3.39 L (4.1-5.4) M/mm3 Hgb 10.3 L (12.0-16.0) gm/dl Hct 30.9 L (35-47) % MCV 91.2 (78-100) fl MCH 30.3 (26-32) pg MCHC 33.3 (32-36) g/dl RDW 15.4 H (11.5-14.0) % Plt Count 258 (150-450) K/mm3 MPV 10.3 H (6-9.5) fl Sodium 141 (136-145) mEq/L Potassium 3.9 (3.5-5.1) mEq/L Chloride 106 (98-107) mEq/L Carbon Dioxide 29.4 (21-32) mEq/L Anion Gap 9.2 (5-15) MEQ/L BUN 35 H (9-20) mg/dL Creatinine 0.59 (0.55-1.30) mg/dl Estimated GFR > 60 ML/MIN Glucose 172 H (70-110) MG/DL Calcium 8.1 L (8.5-10.1) mg/dL Digoxin 0.68 (0.5-1.5) ng/ml ABO Group Rh Factor Antibody Screen (NEGATIVE) Crossmatch (COMPATIBLE) Radiology Exams: Radiology Procedures Category Date Time Status ABDOMEN AND PELVIS W CONTRAST [CT] Urgent Exams 04/25/17 12:43 Completed CHEST 1 VIEW (PORTABLE) Stat Exams 04/25/17 11:13 Completed CHEST WITH CONTRAST [CT] Urgent Exams 04/25/17 12:43 Completed Multi-Disciplinary Progress Notes: Multi-Disciplinary Progress Notes 04/26/17 11:16 Pharmacy Note by Abram Hurley Glucose running high at 186. Will increase insulin in TPN to 25 units. Initialized on 04/26/17 11:16 - END OF NOTE 04/26/17 09:58 Respiratory Note by Tessy Flores PT RESTING WELL ON HIFLOW O2 40LPM, 95%O2. PT CONTINUES TO BE LESS DYSPENIC THAN PRIOR DAYS. WILL CONTINUE TO MONITOR AND WEAN TOLERATED Initialized on 04/26/17 09:58 - END OF NOTE 04/26/17 09:56 Respiratory Note by Tessy Flores LATE ENTRY: 04/25/17 AMBU BAG PLACED AT BEDSIDE DO TO PTS CRITICAL CONDITION AND THE POSSIBILITY OF INTUBATION. Initialized on 04/26/17 09:56 - END OF NOTE Assessment/Plan (1) S/P appendectomy Current Visit: Yes Status: Acute Assessment & Plan: Continue meropenem (Day 9). Management per surgeons. Code(s): Z90.49 - ACQUIRED ABSENCE OF OTHER SPECIFIED PARTS OF DIGESTIVE TRACT (2) S/P small bowel resection Current Visit: Yes Status: Acute Code(s): Z90.49 - ACQUIRED ABSENCE OF OTHER SPECIFIED PARTS OF DIGESTIVE TRACT (3) Acute respiratory failure with hypoxia Current Visit: Yes Status: Acute Assessment & Plan: She continues on high flow oxygen at almost 100%. Dr. Josue saw her yesterday. Continue with supportive treatment. Code(s): J96.01 - ACUTE RESPIRATORY FAILURE WITH HYPOXIA (4) Pericardial effusion Current Visit: Yes Status: Acute Assessment & Plan: Mild, Dr. Ruiz aware. Code(s): I31.3 - PERICARDIAL EFFUSION (NONINFLAMMATORY) (5) Bilateral pleural effusion Current Visit: Yes Status: Acute Assessment & Plan: Continued effusion on left. Right s/p thoracentesis on 04/25/17. Code(s): J90 - PLEURAL EFFUSION, NOT ELSEWHERE CLASSIFIED (6) Anemia Current Visit: Yes Status: Acute Qualifiers: Anemia type: unspecified type Qualified Code(s): D64.9 - Anemia, unspecified Assessment & Plan: S/p 2 units Packed red blood cells. Stable at this time. She had recently diagnosed large duodenal ulcer. Code(s): D64.9 - ANEMIA, UNSPECIFIED (7) Tobacco abuse Current Visit: Yes Status: Acute Code(s): Z72.0 - TOBACCO USE (8) COPD (chronic obstructive pulmonary disease) Current Visit: Yes Status: Chronic Assessment & Plan: IV solumedrol was started Wednesday (04/23/17). Will start to wean steroids. Patient on meropenem (Day 9) and diflucan Day 4. (9) Hyperglycemia Current Visit: Yes Status: Acute Assessment & Plan: Continue insulin in TPN. Code(s): R73.9 - HYPERGLYCEMIA, UNSPECIFIED (10) Sinus tachycardia Current Visit: Yes Status: Acute Assessment & Plan: Continue digoxin and metoprolol. Code(s): R00.0 - TACHYCARDIA, UNSPECIFIED (11) Duodenal ulcer Current Visit: Yes Status: Acute Assessment & Plan: Continue protonix 40 mg IV bid. (12) Poor nutrition Current Visit: Yes Status: Acute Assessment & Plan: Continue TPN. Code(s): E63.9 - NUTRITIONAL DEFICIENCY, UNSPECIFIED
[2017-04-27] MEDS: PROTONIX 40 MG IV IV SCH ×2 (09:12→21:08)
[2017-04-27] MEDS: Merrem 1 GM 1 G in Sodium Chloride 100ML MINI-BAG PLUS 100 ML IV SCH ×2 (09:15→21:08)
[2017-04-27] MEDS: Lopressor 50 MG PO SCH ×2 (09:16→21:09)
[2017-04-27] MEDS: Lanoxin 0.125MG TABLET PO SCH (09:18)
[2017-04-27] MEDS: NO ANTICOAGULANTS OR BLOOD THINNERS/ASPIRIN MC SCH (09:26)
[2017-04-27] MEDS: Nicoderm CQ 21 MG TOP SCH (09:26)
[2017-04-27] MEDS: Sodium Chloride 0.9% 500 ML 500 ML IV SCH ×3 (09:26→21:33)
[2017-04-27] MEDS: Diflucan/Saline 0.2G/100ML PREMIX*** 100 ML IV SCH (09:44)
[2017-04-27] MEDS ORDERED: Lasix 20 MG/2 ML IV ONE (10:00)
[2017-04-27] MEDS: INTRALIPID 20% 250 ML 250 ML, TPN Electrolytes 20 ML, Multitrace-4 Conc Vial 1 ML*** 1 ... IV SCH ×6 (14:08)
[2017-04-27] MEDS: Sodium Chloride 3 ML UD NEBULES IH SCH ×4 (19:24→21:32)
[2017-04-28] MEDS: MORPHINE SULFATE 2 MG INJ IV PRN (04:13)
[2017-04-28 05:47] LABS: Mean Cell Volume 93.2 fl (78-100); Mean Platelet Volume 10.4 fl (6-9.5); Platelet Count 209 K/mm3 (150-450); Red Blood Count 2.94 M/mm3 (4.1-5.4); Red Cell Distribution Width 15.6 % (11.5-14.0); White Blood Count 13.1 K/mm3 (4.0-10.5)
[2017-04-28 05:51] LABS: Mean Corpuscular Hemoglobin 30.2 pg (26-32)
[2017-04-28 06:15] LABS: ALBUMIN 1.7 g/dL (3.4-5.0); ALKALINE PHOSPHATASE 70 U/L (46-116); ANION GAP 8.6 MEQ/L (5-15); BLOOD UREA NITROGEN 32 mg/dL (9-20); CHLORIDE 105 mEq/L (98-107); Carbon Dioxide 30.1 mEq/L (21-32); Glucose 158 MG/DL (70-110); MAGNESIUM 2.1 mg/dL (1.8-2.4); Potassium 4.3 mEq/L (3.5-5.1); SGOT/AST 20 U/L (15-37); SGPT/ALT 16 U/L (12-78); SODIUM 139 mEq/L (136-145); Total Protein 3.8 gm/dL (6.4-8.2)
[2017-04-28 07:49] LABS: Platelet Estimate NORMAL (NORMAL); Total Cells Counted 100
--- NOTE | 2017-04-28 08:32 | PCM.NOTE ---
Date and Time: 04/28/17826 Subjective Assessment: RT reports they were able to wean her down to 55% oxygen today. Her nurse notes when she got up to use the bathroom that her sats dropped to the mid 80's with exertion but came right back up. Her NG has been removed in the past 24 hours. She still has drains in place. Patient reports that her hands feel swollen some. She reports she has a cough but is not getting much up. - Review of Systems Constitutional: No Symptoms Eyes: No Symptoms Ears, Nose, & Throat: No Symptoms Respiratory: Cough, Short Of Breath Cardiac: No Symptoms Abdominal/Gastrointestinal: No Symptoms Genitourinary Symptoms: No Symptoms Skin: No Symptoms Objective Exam General Appearance: no apparent distress, alert, other (sitting up, nurse at bedside; on high flow oxygen) Neurologic Exam: normal mood/affect Skin Exam: normal color, warm, dry Respiratory Exam: other (decreased breath sounds on left side, CTA on right.) Cardiovascular Exam: regular rate/rhythm, normal heart sounds, No murmur, No friction rub, No gallop Extremity Exam: other (trace edema in lower extremities bilat, mild swelling of hands) OBJECTIVE DATA Vital Signs: Vital Signs - 24 hr Temp Pulse Resp BP BP Pulse Ox 04/28/17 07:45 95 H 22 99 04/28/17 04:45 88 16 132/52 94 L 04/28/17 04:00 87 04/28/17 03:00 97.6 F 87 22 155/81 95 04/28/17 01:00 86 18 119/63 94 L 04/28/17 00:00 89 04/27/17 23:00 97.6 F 89 17 143/82 95 04/27/17 21:35 101 H 21 128/63 97 04/27/17 20:05 96 H 20 125/70 97 04/27/17 19:41 97.8 F 99 H 19 145/81 95 04/27/17 19:27 99 H 04/27/17 18:54 98 H 20 142/68 98 04/27/17 18:30 100 H 21 96 04/27/17 16:59 94 H 19 160/78 97 04/27/17 16:00 98 H 04/27/17 14:50 97.4 F 92 H 20 129/85 97 04/27/17 12:52 91 H 19 129/57 94 L 04/27/17 11:54 91 H 04/27/17 10:56 85 21 145/76 98 04/27/17 09:18 103 H 157/99 04/27/17 09:00 98 F 102 H 20 157/99 96 Oxygen-Last 24 hours O2 Percentage 70% O2 Percentage 70% O2 Percentage 70% O2 Percentage 70% O2 Percentage 70% O2 Percentage 70% O2 Percentage 70% O2 Percentage 70% O2 Percentage 70% O2 Percentage 70% O2 Percentage 70% O2 Percentage 80% O2 Percentage 90% Oxygen Flowrate (L/min)-RT 40 Oxygen Flowrate (L/min)-RT 40 Oxygen Flowrate (L/min)-RT 40 Oxygen Flowrate (L/min)-RT 40 Oxygen Flowrate (L/min)-RT 40 Oxygen Flowrate (L/min)-RT 40 Oxygen Flowrate (L/min)-RT 40 Oxygen Flowrate (L/min)-RT 40 Oxygen Flowrate (L/min)-RT 40 Oxygen Flowrate (L/min)-RT 40 Oxygen Flowrate (L/min)-RT 40 Oxygen Flowrate (L/min)-RT 40 Oxygen Flowrate (L/min)-RT 40 Pain Assessment - Last Documented Pain Intensity 5 Pain Scale Used 0-10 Pain Scale Intake and Output: Intake & Output 04/26/17 04/27/17 04/28/17 04/29/17 06:59 06:59 06:59 06:59 Intake Total 1955 3019 2642 Output Total 2474 2115 2450 Balance -515 904 192 Weight 75.3 kg 75.115 kg 73.4 kg Lab Results: Accuchecks Date 04/27/17 Date 04/27/17 Time 22:00 Time 05:43 Accucheck Value: 167 Accucheck Value: 182 Lab Results-Last 24 Hours 04/28/17 04/28/17 Range/Units 05:38 05:38 WBC 13.1 H (4.0-10.5) K/mm3 RBC 2.94 L (4.1-5.4) M/mm3 Hgb 8.9 L (12.0-16.0) gm/dl Hct 27.4 L (35-47) % MCV 93.2 (78-100) fl MCH 30.2 (26-32) pg MCHC 32.5 (32-36) g/dl RDW 15.6 H (11.5-14.0) % Plt Count 209 (150-450) K/mm3 MPV 10.4 H (6-9.5) fl Segmented Neutrophils 93 H (36.0-66.0) % Lymphocytes (Manual) 5 L (24-44) % Monocytes (Manual) 2 (0.0-12.0) % Differential Comment NORMAL Platelet Estimate NORMAL (NORMAL) Sodium 139 (136-145) mEq/L Potassium 4.3 (3.5-5.1) mEq/L Chloride 105 (98-107) mEq/L Carbon Dioxide 30.1 (21-32) mEq/L Anion Gap 8.6 (5-15) MEQ/L BUN 32 H (9-20) mg/dL Creatinine 0.49 L (0.55-1.30) mg/dl Estimated GFR > 60 ML/MIN Glucose 158 H (70-110) MG/DL Calcium 7.8 L (8.5-10.1) mg/dL Magnesium 2.1 (1.8-2.4) mg/dL Total Bilirubin 0.60 (0.2-1.0) mg/dL AST 20 (15-37) U/L ALT 16 (12-78) U/L Alkaline Phosphatase 70 (46-116) U/L Serum Total Protein 3.8 L (6.4-8.2) gm/dL Albumin 1.7 L (3.4-5.0) g/dL Multi-Disciplinary Progress Notes: Multi-Disciplinary Progress Notes 04/27/17 13:55 (created 04/27/17 14:12) Respiratory Note by Brittani Ariza The patient's O2 sat on 75% FiO2 and flowrate of 40lpm is 94% HR 92 RR 28. The patient had just finished getting cleaned up and being turned. Decreased FiO2 to 70% at this time. RN notified. Initialized on 04/27/17 14:12 - END OF NOTE 04/27/17 11:55 (created 04/27/17 11:56) Respiratory Note by Brittani Ariza The patient's O2 sat is 97% on 85% FiO2 and flowrate of 40lpm HR 88 and RR 19. Decreased FiO2 to 75% Flowrate remains at 40lpm. RN notified. Will recheck patient's O2 sat. Initialized on 04/27/17 11:56 - END OF NOTE 04/27/17 10:45 (created 04/27/17 11:48) Respiratory Note by Brittani Ariza Decreased patient's FiO2 to 85% Flowrate remains at 40lpm. O2 sat 98% HR 80 RR 21. Will recheck O2 sats and try to wean further. RN notified of changes. Initialized on 04/27/17 11:48 - END OF NOTE 04/27/17 09:50 (created 04/27/17 13:52) Case Management Note by Viktoria Hernandez SITTING UPRIGHT IN BED, HIGH FLOW OXYGEN IN PLACE, REPORTS FEELING BETTER, EXTREMELY WEAKENED. BE AYERS AT BEDSIDE. REPORTS THAT PER DR. PEREZ PT MAY GET TO TRANSFER TO MED/SURG TOMORROW. DISCUSSED THAT DR. Aishwarya JOSUE REPORTED YESTERDAY THAT HE WOULD URGE PT FOR EXTENDED REHAB. NO ADDNL DISCHARGE NEEDS AT PRESENT. DISCUSSED THAT GRANDDAUGHTER, BEATRIZ, HAS DISCUSSED SWING BED FOR REHAB. WILL CONTINUE TO FOLLOW FOR ALL DC NEEDS. Initialized on 04/27/17 13:52 - END OF NOTE Assessment/Plan (1) S/P appendectomy Current Visit: Yes Status: Acute Assessment & Plan: Continue management per surgeon. Meropenem day 10 today. Code(s): Z90.49 - ACQUIRED ABSENCE OF OTHER SPECIFIED PARTS OF DIGESTIVE TRACT (2) S/P small bowel resection Current Visit: Yes Status: Acute Assessment & Plan: Management per surgeons. Code(s): Z90.49 - ACQUIRED ABSENCE OF OTHER SPECIFIED PARTS OF DIGESTIVE TRACT (3) Acute respiratory failure with hypoxia Current Visit: Yes Status: Acute Assessment & Plan: Improving at this time. Dr. Josue consulting. Oxygen has been weaned down to 55% on the high flow. Code(s): J96.01 - ACUTE RESPIRATORY FAILURE WITH HYPOXIA (4) Pericardial effusion Current Visit: Yes Status: Acute Assessment & Plan: Mild, Dr. Ruiz following. Code(s): I31.3 - PERICARDIAL EFFUSION (NONINFLAMMATORY) (5) Bilateral pleural effusion Current Visit: Yes Status: Acute Assessment & Plan: Still decreased breath sounds on left. General surgeon had discussed doing a thoracentesis on this side also. S/p thoracentesis on right side earlier during this hospital stay. Code(s): J90 - PLEURAL EFFUSION, NOT ELSEWHERE CLASSIFIED (6) Anemia Current Visit: Yes Status: Acute Qualifiers: Anemia type: unspecified type Qualified Code(s): D64.9 - Anemia, unspecified Assessment & Plan: Stable after 2 units of PRBCs on 04/26/17. Code(s): D64.9 - ANEMIA, UNSPECIFIED (7) Tobacco abuse Current Visit: Yes Status: Acute Code(s): Z72.0 - TOBACCO USE (8) COPD (chronic obstructive pulmonary disease) Current Visit: Yes Status: Chronic Assessment & Plan: Weaning down on steroids. She is on antibiotics. Spiriva and advair ordered along with xopenex. (9) Hyperglycemia Current Visit: Yes Status: Acute Assessment & Plan: Insulin in TPN. Code(s): R73.9 - HYPERGLYCEMIA, UNSPECIFIED (10) Sinus tachycardia Current Visit: Yes Status: Acute Assessment & Plan: Improved/controlled on digoxin and metoprolol. Code(s): R00.0 - TACHYCARDIA, UNSPECIFIED (11) Duodenal ulcer Current Visit: Yes Status: Acute Assessment & Plan: Continue protonix 40 mg IV q 12 hours. (12) Poor nutrition Current Visit: Yes Status: Acute Assessment & Plan: Continue tpn until oral intake improves. Code(s): E63.9 - NUTRITIONAL DEFICIENCY, UNSPECIFIED
[2017-04-28] MEDS: Spiriva 18 Mcg/Cap Inhaler IH SCH (08:43)
[2017-04-28] MEDS: Advair Hfa 230/21 Mcg COMMON CANISTER IH SCH ×2 (08:43→19:20)
[2017-04-28] MEDS: Nicoderm CQ 21 MG TOP SCH (09:16)
[2017-04-28] MEDS: Merrem 1 GM 1 G in Sodium Chloride 100ML MINI-BAG PLUS 100 ML IV SCH ×2 (09:16→22:19)
[2017-04-28] MEDS: PROTONIX 40 MG IV IV SCH ×2 (09:17→22:15)
[2017-04-28] MEDS: NO ANTICOAGULANTS OR BLOOD THINNERS/ASPIRIN MC SCH (09:17)
[2017-04-28] MEDS: solu-MEDROL 125 MG IV SCH ×2 (09:17→22:14)
[2017-04-28] MEDS ORDERED: Lasix 20 MG/2 ML IV ONE (10:00)
[2017-04-28] MEDS: Diflucan/Saline 0.2G/100ML PREMIX*** 100 ML IV SCH (10:10)
[2017-04-28] MEDS: Lopressor 50 MG PO SCH ×2 (11:39→23:03)
[2017-04-28] MEDS: Lanoxin 0.125MG TABLET PO SCH (11:40)
[2017-04-28] MEDS: NORCO 5/325 MG PO PRN ×2 (13:18→22:35)
[2017-04-28] MEDS: NovoLOG Insulin SQ PRN (13:18)
[2017-04-28] MEDS: INTRALIPID 20% 250 ML 250 ML, TPN Electrolytes 20 ML, Multitrace-4 Conc Vial 1 ML*** 1 ... IV SCH ×6 (14:49)
[2017-04-28] MEDS: Ativan 2 MG/1 ML VIAL IV PRN ×2 (16:10→22:15)
--- NOTE | 2017-04-28 16:28 | XRAY ---
Indication: Pleural effusion. Comparison: April 25, 2017. Portable chest demonstrates minimally improved large left base infiltrate/atelectasis/effusion. Stable minimal right base infiltrate/atelectasis/effusion, right apical pleural thickening, and right arm PICC line. NG tube removed in the interim. Heart is not enlarged. No new cardiopulmonary abnormalities.
[2017-04-28] MEDS ORDERED: BUMEX 1 MG IV ONE (18:17)
[2017-04-28] MEDS: Xopenex 1.25 MG/0.5 ML UD NEBULE IH PRN (19:17)
[2017-04-29] MEDS: Ativan 2 MG/1 ML VIAL IV PRN ×6 (02:03→23:47)
[2017-04-29] MEDS: NORCO 5/325 MG PO PRN ×6 (02:10→23:47)
[2017-04-29 05:47] LABS: Mean Cell Volume 94.6 fl (78-100); Mean Platelet Volume 10.9 fl (6-9.5); Platelet Count 210 K/mm3 (150-450); Red Blood Count 2.59 M/mm3 (4.1-5.4); Red Cell Distribution Width 15.8 % (11.5-14.0)
[2017-04-29 05:52] LABS: Mean Corpuscular Hemoglobin 30.8 pg (26-32)
[2017-04-29 06:12] LABS: ANION GAP 7.4 MEQ/L (5-15); BLOOD UREA NITROGEN 35 mg/dL (9-20); CHLORIDE 102 mEq/L (98-107); Glucose 177 MG/DL (70-110); SODIUM 135 mEq/L (136-145)
--- NOTE | 2017-04-29 08:28 | PCM.NOTE ---
Date and Time: 04/29/17821 Subjective Assessment: Patient reports she feels short of breath at times and this is worse when she gets up and moves around. Nursing notes and RT state Dr. Josue was called yesterday evening and ordered extra diuretic and order for Dr. Gonzalez to possible drain her left pleural effusion under ultrasound guidance. Dr. Eliezer Gonzalez had drained the right side and Dr. Minal Donaldson had deferred possible drainage of left side to primary surgeon Dr. Conn. She has not had any more stools since yesterday. Patient reports her legs are very weak when she goes to stand. She reports getting anxious when she is up and about as she gets short of breath. - Review of Systems Constitutional: Weakness Eyes: No Symptoms Ears, Nose, & Throat: No Symptoms Respiratory: Short Of Breath Cardiac: No Symptoms Abdominal/Gastrointestinal: No Symptoms Genitourinary Symptoms: No Symptoms Musculoskeletal: Other (generalized weakness) Objective Exam General Appearance: mild distress, other (mild tachypnea) Neurologic Exam: alert, cooperative, normal mood/affect Skin Exam: normal color, warm, dry Respiratory Exam: other (decreased breath sounds on left, no wheezing on either side) Cardiovascular Exam: regular rate/rhythm, No murmur, No friction rub, No gallop Gastrointestinal/Abdomen Exam: soft, normal bowel sounds, other (drain in place) , No tenderness, No distention, No mass OBJECTIVE DATA Vital Signs: Vital Signs - 24 hr Temp Pulse Resp BP BP Pulse Ox 04/29/17 08:00 97.6 F 96 H 23 116/57 96 04/29/17 06:57 91 H 24 99 04/29/17 06:00 97.6 F 96 H 23 116/57 96 04/29/17 04:00 97.6 F 90 22 115/53 95 04/29/17 00:00 20 04/28/17 23:22 98 04/28/17 22:00 98.1 F 113 H 20 111/56 91 L 04/28/17 21:02 96 H 15 87 L 04/28/17 20:00 20 04/28/17 16:01 91 L 04/28/17 16:00 92 H 18 136/63 90 L 04/28/17 15:32 84 L 04/28/17 14:00 98.1 F 92 H 18 134/61 89 L 04/28/17 12:00 94 H 20 121/51 94 L 04/28/17 11:40 97 H 123/57 04/28/17 11:35 95 04/28/17 11:00 98 H 19 124/48 95 04/28/17 10:15 97 H 13 107/71 90 L 04/28/17 10:00 103 H 17 96/44 92 L 04/28/17 09:00 103 H 20 105/50 88 L 04/28/17 08:51 102 H 90 L Oxygen-Last 24 hours O2 Percentage 40% O2 Percentage 80% O2 Percentage 80% O2 Percentage 70% Oxygen Flowrate (L/min)-RT 44 Oxygen Flowrate (L/min)-RT 44 Oxygen Flowrate (L/min)-RT 45 Oxygen Flowrate (L/min)-RT 45 Oxygen Flowrate (L/min)-RT 55 Oxygen Flowrate (L/min)-RT 55 Oxygen Flowrate (L/min)-RT 55 Oxygen Flowrate (L/min)-RT 55 Pain Assessment - Last Documented Pain Intensity 9 Pain Scale Used 0-10 Pain Scale Intake and Output: Intake & Output 04/27/17 04/28/17 04/29/17 04/30/17 06:59 06:59 06:59 06:59 Intake Total 3012 2642 1906 Output Total 6103 9530 4735 Balance 904 192 -509 Weight 75.115 kg 73.4 kg 74.871 kg Lab Results: Accuchecks Date 04/29/17 Date 04/28/17 Time 05:09 Time 21:56 Accucheck Value: 189 Accucheck Value: 189 Accucheck Value: 206 Lab Results-Last 24 Hours 04/28/17 04/29/17 04/29/17 Range/Units 14:11 05:40 05:40 WBC 11.0 H (4.0-10.5) K/mm3 RBC 2.59 L (4.1-5.4) M/mm3 Hgb 8.4 L 8.0 L (12.0-16.0) gm/dl Hct 24.5 L (35-47) % MCV 94.6 (78-100) fl MCH 30.8 (26-32) pg MCHC 32.7 (32-36) g/dl RDW 15.8 H (11.5-14.0) % Plt Count 210 (150-450) K/mm3 MPV 10.9 H (6-9.5) fl Sodium 135 L (136-145) mEq/L Potassium 4.0 (3.5-5.1) mEq/L Chloride 102 (98-107) mEq/L Carbon Dioxide 30.0 (21-32) mEq/L Anion Gap 7.4 (5-15) MEQ/L BUN 35 H (9-20) mg/dL Creatinine 0.54 L (0.55-1.30) mg/dl Estimated GFR > 60 ML/MIN Glucose 177 H (70-110) MG/DL Calcium 7.7 L (8.5-10.1) mg/dL Radiology Exams: Radiology Procedures Category Date Time Status CHEST 1 VIEW (PORTABLE) Routine Exams 04/29/17 06:00 Taken CHEST 1 VIEW (PORTABLE) Stat Exams 04/28/17 15:53 Completed THORACENTESIS [US] Urgent Exams 04/29/17 08:00 Ordered Multi-Disciplinary Progress Notes: Multi-Disciplinary Progress Notes 04/28/17 22:19 Respiratory Note by Yessy Verduzco GOT A CALL THAT PT WAS S.O.B. PT'S SATS 88% ON 44L HIGHFLOW WITH 83% INCREASED OXYGEN TO 90% SATS 90-93%. PT STATES SHE THINKS IT'S JUST HER ANXIETY. NURSE GIVING SOMETHING FOR THAT AT THIS TIME. Initialized on 04/28/17 22:19 - END OF NOTE Assessment/Plan (1) S/P appendectomy Current Visit: Yes Status: Acute Assessment & Plan: Management per surgeons. I asked nursing to check with them about stopping meropenem. This is Day 11 of meropenem. 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 Code(s): I31.3 - PERICARDIAL EFFUSION (NONINFLAMMATORY) (5) Bilateral pleural effusion Current Visit: Yes Status: Acute Assessment & Plan: Dr. Gonzalez has been consulted for possible drainage of large left pleural effusion. S/p drainage of right pleural effusion this weekend by Dr. Eliezer Donaldson. Code(s): J90 - PLEURAL EFFUSION, NOT ELSEWHERE CLASSIFIED (6) Anemia Current Visit: Yes Status: Acute Qualifiers: Anemia type: unspecified type Qualified Code(s): D64.9 - Anemia, unspecified Assessment & Plan: Stable. If she has more bloody stools, would recheck hgb and consider transfusion if there is a drop. Code(s): D64.9 - ANEMIA, UNSPECIFIED (7) Tobacco abuse Current Visit: Yes Status: Acute Code(s): Z72.0 - TOBACCO USE (8) COPD (chronic obstructive pulmonary disease) Current Visit: Yes Status: Chronic Assessment & Plan: Weaning steroids. On spiriva, advair and xopenex. Day 6 of fluconazole for yeast in sputum. (9) Hyperglycemia Current Visit: Yes Status: Acute Assessment & Plan: Continue insulin in TPN. Code(s): R73.9 - HYPERGLYCEMIA, UNSPECIFIED (10) Sinus tachycardia Current Visit: Yes Status: Acute Code(s): R00.0 - TACHYCARDIA, UNSPECIFIED (11) Duodenal ulcer Current Visit: Yes Status: Acute Assessment & Plan: She is on protonix 40 mg IV bid and general surgeons have made her NPO except ice chips. (12) Poor nutrition Current Visit: Yes Status: Acute Assessment & Plan: Continue TPN. Code(s): E63.9 - NUTRITIONAL DEFICIENCY, UNSPECIFIED (13) Anxiety Current Visit: Yes Status: Acute Assessment & Plan: Will continue jordan IV but may need scheduled. Code(s): F41.9 - ANXIETY DISORDER, UNSPECIFIED
--- NOTE | 2017-04-29 08:33 | XRAY ---
Indication: Pleural effusion. Comparison: One day earlier. Portable chest demonstrates minimally increasing right base infiltrate/atelectasis/effusion. Stable large left base infiltrate/atelectasis/effusion, right arm PICC line, and right apical pleural thickening. Heart and mediastinal structures within normal limits. No new cardiopulmonary abnormalities.
[2017-04-29] MEDS: Advair Hfa 230/21 Mcg COMMON CANISTER IH SCH ×2 (08:51→19:14)
[2017-04-29] MEDS: Spiriva 18 Mcg/Cap Inhaler IH SCH (08:51)
[2017-04-29] MEDS: Merrem 1 GM 1 G in Sodium Chloride 100ML MINI-BAG PLUS 100 ML IV SCH ×2 (09:23→23:03)
[2017-04-29] MEDS: Nicoderm CQ 21 MG TOP SCH (09:44)
[2017-04-29] MEDS: PROTONIX 40 MG IV IV SCH ×2 (09:44→23:03)
[2017-04-29] MEDS: Lanoxin 0.125MG TABLET PO SCH (09:45)
[2017-04-29] MEDS: Lopressor 50 MG PO SCH ×2 (09:45→23:04)
[2017-04-29] MEDS: solu-MEDROL 40 MG IV SCH ×2 (09:49→23:04)
[2017-04-29] MEDS: Diflucan/Saline 0.2G/100ML PREMIX*** 100 ML IV SCH (10:36)
--- NOTE | 2017-04-29 12:50 | XRAY ---
Indication: Left pleural effusion. Informed consent obtained. Initial sonographic imaging of the left lower back was performed for localization. Skin was prepped and draped in sterile fashion. 1% lidocaine plain used for local anesthesia. Tiny skin incision made. Then a 5 [place] [employer] thoracentesis catheter with introducer needle was inserted into the left hemithorax. Small flash of effusion seen in the syringe at which point the outer catheter was advanced and the inner needle removed. Catheter was then connected to a Vacutainer. Approximately 500 cc of yellow tinged transudative fluid was aspirated. Repeat sonogram demonstrates complete evacuation of the effusion. Catheter was removed. Hemostasis achieved using digital pressure over the puncture site. Small Band-Aid applied. Postoperative instructions and orders given. Impression: Technically successful left chest thoracentesis using ultrasound guidance for therapeutic purpose. 500 cc aspirated. No immediate complications.
--- NOTE | 2017-04-29 12:52 | XRAY ---
Indication: Status post left thoracentesis. Comparison: Taken earlier in the day. Portable chest demonstrates markedly diminished left effusion consistent with recent thoracentesis. There remains residual left base infiltrate/atelectasis less than before. No pneumothorax. Remaining chest unchanged.
[2017-04-29] MEDS: INTRALIPID 20% 250 ML 250 ML, TPN Electrolytes 20 ML, Multitrace-4 Conc Vial 1 ML*** 1 ... IV SCH ×6 (14:00)
[2017-04-29] MEDS: Sodium Chloride 3 ML UD NEBULES IH SCH ×5 (21:11→21:16)
[2017-04-29] MEDS: NO ANTICOAGULANTS OR BLOOD THINNERS/ASPIRIN MC SCH (21:15)
[2017-04-30] MEDS ORDERED: Sodium Chloride 0.9% 500 ML 500 ML IV ONE (00:09)
[2017-04-30] MEDS ORDERED: Sodium Chloride 0.9% 250 ML 250 ML IV SCH (00:15)
[2017-04-30] MEDS: Sodium Chloride 0.9% 500 ML 500 ML IV SCH (00:15)
[2017-04-30 01:06] LABS: ALBUMIN 1.2 g/dL (3.4-5.0); ALKALINE PHOSPHATASE 49 U/L (46-116); BLOOD UREA NITROGEN 41 mg/dL (9-20); CHLORIDE 103 mEq/L (98-107); Carbon Dioxide 26.2 mEq/L (21-32); Glucose 212 MG/DL (70-110); Potassium 3.9 mEq/L (3.5-5.1); SGOT/AST 20 U/L (15-37); SGPT/ALT 16 U/L (12-78); SODIUM 133 mEq/L (136-145); Total Protein 2.5 gm/dL (6.4-8.2)
[2017-04-30] MEDS ORDERED: Sodium Chloride 0.9% 1000 ML 1,000 ML ONE (01:21)
[2017-04-30] MEDS ORDERED: LEVOPHED 4 MG/4 ML 4,000 MCG in Dextrose 5%/Water IV Soln. 500 ML 500 ML IV PRN (01:41)
[2017-04-30] MEDS ORDERED: Sodium Chloride 0.9% 1000 ML 1,000 ML IV SCH (01:45)
[2017-04-30 05:37] LABS: A-aADO2 565; ARTERIAL BLD GAS O2 SATURATION 99.1 % (95-100); ARTERIAL BLOOD GAS BASE EXCESS 6.4 (-2.0-2.0); ARTERIAL BLOOD GAS FIO2 100 %; ARTERIAL BLOOD GAS PO2 116 mmHg (75-100)
[2017-04-30 05:38] LABS: ARTERIAL BLOOD GAS pH 7.64 (7.35-7.45)
[2017-04-30 05:39] LABS: ALLEN TEST OK? YES
[2017-04-30] MEDS: Advair Hfa 230/21 Mcg COMMON CANISTER IH SCH (07:47)
[2017-04-30] MEDS: Spiriva 18 Mcg/Cap Inhaler IH SCH (07:49)
[2017-04-30] MEDS: NORCO 5/325 MG PO PRN ×2 (07:52→12:05)
[2017-04-30] MEDS: Ativan 2 MG/1 ML VIAL IV PRN (07:54)
--- NOTE | 2017-04-30 08:38 | PCM.NOTE ---
Date and Time: 04/30/17832 Subjective Assessment: Overnight she had trouble with her oxygenation and had her hgb rechecked and reported as 5. Her nurses report multiple blood stools. RT, Tamera, reports that Dr. Josue has been notified and plans to see her today and I paged the surgeon's office today and they are to call back as soon as possible as I let their secretary bookkeeper know about her ulcer and blood loss at 8:30 am today. Patient reports she continues to have abdominal pain that is not different from the pain she had before. - Review of Systems Constitutional: Weakness Respiratory: Short Of Breath Cardiac: No Symptoms Abdominal/Gastrointestinal: Abdominal Pain, Other (bloody stools) Genitourinary Symptoms: No Symptoms Musculoskeletal: No Symptoms Skin: No Symptoms Objective Exam General Appearance: mild distress Neurologic Exam: alert, cooperative Skin Exam: warm, dry, pale Respiratory Exam: other (CTA bilat when ausculated anteriorly) Cardiovascular Exam: regular rate/rhythm, normal heart sounds, No murmur, No friction rub, No gallop Gastrointestinal/Abdomen Exam: soft, tenderness, other (incisions warm, dry intact), No distention, No mass, No guarding Extremity Exam: other (+2 edema in legs bilat) OBJECTIVE DATA Vital Signs: Vital Signs - 24 hr Temp Pulse Resp BP BP Pulse Ox 04/30/17 07:58 78 04/30/17 07:54 94 H 22 98 04/30/17 06:58 79 18 106/43 100 04/30/17 06:47 77 20 100 04/30/17 06:45 77 16 107/53 100 04/30/17 06:30 76 17 115/37 100 04/30/17 06:15 76 17 127/40 100 04/30/17 05:59 98.5 F 75 19 119/52 100 04/30/17 05:30 98.1 F 77 20 132/37 100 04/30/17 05:00 75 19 123/48 100 04/30/17 04:45 73 16 132/37 100 04/30/17 04:30 75 20 122/45 100 04/30/17 04:15 76 19 109/40 100 04/30/17 04:00 76 21 102/37 100 04/30/17 03:56 76 20 04/30/17 03:45 76 119/44 04/30/17 03:30 82 118/82 04/30/17 03:00 98.9 F 75 20 112/45 100 04/30/17 02:45 71 102/34 04/30/17 02:40 74 98/35 04/30/17 02:30 73 107/33 04/30/17 02:20 73 104/47 04/30/17 02:15 74 108/43 04/30/17 02:10 74 101/64 04/30/17 02:05 72 124/36 04/30/17 02:00 97.9 F 74 20 78/32 100 04/30/17 01:50 75 26 H 83/41 100 04/30/17 01:45 72 24 78/34 100 04/30/17 01:30 73 24 74/41 100 04/30/17 01:15 73 24 95/32 100 04/30/17 01:00 74 22 83/32 100 04/30/17 00:55 74 28 H 63/37 97 04/30/17 00:00 96.5 F 90 25 H 79/43 78 L 04/29/17 20:00 97.6 F 95 H 19 116/56 91 L 04/29/17 19:21 90 20 91 L 04/29/17 16:00 98.2 F 90 23 136/58 90 L 04/29/17 14:40 98 04/29/17 14:08 94 L 04/29/17 12:00 97.6 F 90 20 138/65 95 04/29/17 11:18 94 L 04/29/17 09:45 88 04/29/17 09:19 90 L 04/29/17 09:02 99 H 22 86 L Oxygen-Last 24 hours O2 Percentage 100% O2 Percentage 100% O2 Percentage 100% O2 Percentage 100% O2 Percentage 100% O2 Percentage 100% O2 Percentage 100% O2 Percentage 100% O2 Percentage 100% O2 Percentage 100% O2 Percentage 100% O2 Percentage 100% O2 Percentage 100% O2 Percentage 100% O2 Percentage 100% O2 Percentage 100% O2 Percentage 100% O2 Percentage 100% O2 Percentage 100% O2 Percentage 100% O2 Percentage 90% O2 Percentage 4 Liters = 36% O2 Percentage 40% Oxygen Flowrate (L/min)-RT 20 Oxygen Flowrate (L/min)-RT 20 Oxygen Flowrate (L/min)-RT 44 Oxygen Flowrate (L/min)-RT 44 Oxygen Flowrate (L/min)-RT 44 Oxygen Flowrate (L/min)-RT 44 Oxygen Flowrate (L/min)-RT 44 Oxygen Flowrate (L/min)-RT 44 Oxygen Flowrate (L/min)-RT 44 Oxygen Flowrate (L/min)-RT 44 Oxygen Flowrate (L/min)-RT 44 Pain Assessment - Last Documented Pain Intensity 3 Pain Scale Used 0-10 Pain Scale Intake and Output: Intake & Output 04/28/17 04/29/17 04/30/17 05/01/17 06:59 06:59 06:59 06:59 Intake Total 2642 9906 3168 Output Total 9941 7835 590 Balance 192 -509 2578 Weight 73.4 kg 74.871 kg 76.1 kg Lab Results: Accuchecks Date 04/30/17 Date 04/29/17 Time 22:00 Time 13:00 Accucheck Value: 182 Accucheck Value: 161 Lab Results-Last 24 Hours 04/30/17 04/30/17 04/30/17 Range/Units 00:26 00:30 00:30 Hgb (12.0-16.0) gm/dl Hct (35-47) % Puncture Site LEFT WRIST pCO2 26 L (35-45) mmHg pO2 116 H (75-100) mmHg Base Excess 6.4 H (-2.0-2.0) O2 Saturation 90.0 L (94-100) g/dF ABG pH 7.64 H* (7.35-7.45) ABG HCO3 28.0 (22-28) ABG O2 Sat (Measured) 99.1 (95-100) % Fox Test YES A-a Gradient 565 a/A Ratio 0.17 Hemoglobin 5.3 L* Carboxyhemoglobin 8.4 H* (0.0-6.9) % THgb Methemoglobin 0.9 L (1.4-1.5) % Potassium 4.0 (3.5-5.1) Temperature 37.0 C POC O2 Flow Rate 100 % Sodium (136-145) mEq/L Chloride (98-107) mEq/L Carbon Dioxide (21-32) mEq/L Anion Gap (5-15) MEQ/L BUN (9-20) mg/dL Creatinine (0.55-1.30) mg/dl Estimated GFR ML/MIN Glucose (70-110) MG/DL Calcium (8.5-10.1) mg/dL Total Bilirubin (0.2-1.0) mg/dL AST (15-37) U/L ALT (12-78) U/L Alkaline Phosphatase (46-116) U/L Serum Total Protein (6.4-8.2) gm/dL Albumin (3.4-5.0) g/dL ABO Group B Rh Factor NEGATIVE Antibody Screen NEGATIVE (NEGATIVE) Crossmatch COMPATIBLE COMPATIBLE (COMPATIBLE) 04/30/17 04/30/17 Range/Units 00:47 00:47 Hgb 5.0 L* (12.0-16.0) gm/dl Hct 15.6 L (35-47) % Puncture Site pCO2 (35-45) mmHg pO2 (75-100) mmHg Base Excess (-2.0-2.0) O2 Saturation (94-100) g/dF ABG pH (7.35-7.45) ABG HCO3 (22-28) ABG O2 Sat (Measured) (95-100) % Fox Test A-a Gradient a/A Ratio Hemoglobin Carboxyhemoglobin (0.0-6.9) % THgb Methemoglobin (1.4-1.5) % Potassium 3.9 (3.5-5.1) Temperature C POC O2 Flow Rate % Sodium 133 L (136-145) mEq/L Chloride 103 (98-107) mEq/L Carbon Dioxide 26.2 (21-32) mEq/L Anion Gap 8.0 (5-15) MEQ/L BUN 41 H (9-20) mg/dL Creatinine 0.75 (0.55-1.30) mg/dl Estimated GFR > 60 ML/MIN Glucose 212 H (70-110) MG/DL Calcium 7.1 L (8.5-10.1) mg/dL Total Bilirubin 0.50 (0.2-1.0) mg/dL AST 20 (15-37) U/L ALT 16 (12-78) U/L Alkaline Phosphatase 49 (46-116) U/L Serum Total Protein 2.5 L (6.4-8.2) gm/dL Albumin 1.2 L (3.4-5.0) g/dL ABO Group Rh Factor Antibody Screen (NEGATIVE) Crossmatch (COMPATIBLE) Radiology Exams: Radiology Procedures Category Date Time Status CHEST 1 VIEW (PORTABLE) Routine Exams 04/29/17 06:00 Completed CHEST 1 VIEW (PORTABLE) Stat Exams 04/28/17 15:53 Completed CHEST 1 VIEW (PORTABLE) Stat Exams 04/30/17 00:07 Taken CHEST 1 VIEW (PORTABLE) Urgent Exams 04/29/17 12:00 Completed THORACENTESIS [US] Urgent Exams 04/29/17 08:00 Completed Multi-Disciplinary Progress Notes: Multi-Disciplinary Progress Notes 04/30/17 05:31 Respiratory Note by Colt Enciso PT unable to maintain O2 sat above 89 on 70%, increased to 80% with sats remaining at 89%, increased FIO2 to 100%. Initialized on 04/30/17 05:31 - END OF NOTE 04/29/17 13:15 (created 04/29/17 16:41) Case Management Note by Viktoria Hernandez PHONE CALL TO BEATRIZ KATI, PT'S GRANDDAUGHTER. DISCUSSED EXTENDED RESPIRATORY REHAB STAY. ALSO, DISCUSSED THAT NONE OF THE FACILITIES IN OUR AREA PROVIDE THIS TYPE OF REHAB. [facility] IS THE CLOSEST FACILITY THAT OFFERS RESPIRATORY REHAB. BEATRIZ REPORTS THAT THEY WILL DISCUSS A FAMILY AND DECIDE. PREFERS TO START OUT HERE AT [facility] IN SWING BED. DID DISCUSS THAT PT'S PHYSICIANS FEEL THAT SHE WILL NEED EXTENDED REHAB STAY @ [facility] ON DISCHARGE PRIOR TO RETURNING HOME. BEATRIZ REPORTS THAT SHE WILL LOOK AT [facility]. NO ADDNL NEEDS NOTED AT PRESENT. WILL CONTINUE TO FOLLOW AND ASSESS FOR ALL DC NEEDS. Initialized on 04/29/17 16:41 - END OF NOTE Assessment/Plan (1) S/P appendectomy Current Visit: Yes Status: Acute Code(s): Z90.49 - ACQUIRED ABSENCE OF OTHER SPECIFIED PARTS OF DIGESTIVE TRACT (2) S/P small bowel resection Current Visit: Yes Status: Acute Code(s): Z90.49 - ACQUIRED ABSENCE OF OTHER SPECIFIED PARTS OF DIGESTIVE TRACT (3) Acute respiratory failure with hypoxia Current Visit: Yes Status: Acute Assessment & Plan: Dr. Josue following. Blood gas improved this AM. Continuing on high flow oxygen. Code(s): J96.01 - ACUTE RESPIRATORY FAILURE WITH HYPOXIA (4) Pericardial effusion Current Visit: Yes Status: Acute Assessment & Plan: Hx of mild pericardial effusion of which Dr. Ruiz is aware. Code(s): I31.3 - PERICARDIAL EFFUSION (NONINFLAMMATORY) (5) Bilateral pleural effusion Current Visit: Yes Status: Acute Assessment & Plan: Left pleural effusion s/p thoracentesis yesterday by radiologist, Dr. Gonzalez. Right thoracentesis was done 04/24/17. Code(s): J90 - PLEURAL EFFUSION, NOT ELSEWHERE CLASSIFIED (6) Anemia Current Visit: Yes Status: Acute Qualifiers: Anemia type: unspecified type Qualified Code(s): D64.9 - Anemia, unspecified Assessment & Plan: Receiving 2 units of packed red blood cells now. Hgb 9 on most recent blood gas per RT. Most likely due to GI bleed possibly from duodenal ulcer. General surgeon's office called at 8:30 am and urgency of situation discussed with office who said they would page either Dr. Conn or Dr. Suyapa Donaldson. Code(s): D64.9 - ANEMIA, UNSPECIFIED (7) Tobacco abuse Current Visit: Yes Status: Acute Code(s): Z72.0 - TOBACCO USE (8) COPD (chronic obstructive pulmonary disease) Current Visit: Yes Status: Chronic Assessment & Plan: Weaning down on steroids. (9) Hyperglycemia Current Visit: Yes Status: Acute Assessment & Plan: She had insulin in her TPN but currently TPN is not running due to blood transfusion so will order low dose sliding scale. Code(s): R73.9 - HYPERGLYCEMIA, UNSPECIFIED (10) Sinus tachycardia Current Visit: Yes Status: Resolved Code(s): R00.0 - TACHYCARDIA, UNSPECIFIED (11) Duodenal ulcer Current Visit: Yes Status: Acute Assessment & Plan: Surgeon's office notified of blood loss. (12) Poor nutrition Current Visit: Yes Status: Acute Code(s): E63.9 - NUTRITIONAL DEFICIENCY, UNSPECIFIED (13) Anxiety Current Visit: Yes Status: Acute Code(s): F41.9 - ANXIETY DISORDER, UNSPECIFIED (14) Hypotension Current Visit: Yes Status: Resolved Qualifiers: Hypotension type: unspecified hypotension type Qualified Code(s): I95.9 - Hypotension, unspecified Assessment & Plan: Most likely due to acute blood loss. Patient currently on levophed. Code(s): I95.9 - HYPOTENSION, UNSPECIFIED
[2017-04-30 08:59] LABS: A-aADO2 586; ARTERIAL BLD GAS O2 SATURATION 98.7 % (95-100); ARTERIAL BLOOD GAS BASE EXCESS 4.6 (-2.0-2.0); ARTERIAL BLOOD GAS FIO2 100 %; ARTERIAL BLOOD GAS PO2 81 mmHg (75-100); ARTERIAL BLOOD GAS pH 7.49 (7.35-7.45)
[2017-04-30 09:00] LABS: ALLEN TEST OK? YES
--- NOTE | 2017-04-30 09:11 | XRAY ---
Indication: Sudden drop in oxygenation. Status post left thoracentesis 1 day earlier. Comparison: One day earlier. Portable chest again demonstrates small bibasilar infiltrates/atelectasis/effusions minimally worsened on the left. Stable right apical pleural thickening, CT proven right upper lung pulmonary mass, and right arm PICC line. No pneumothorax. Heart is not enlarged. Comment: Preliminary interpretation was made by [facility]. No critical discrepancy.
[2017-04-30] MEDS ORDERED: Lactated Ringers 1,000 ML IV ONE (09:41)
[2017-04-30 10:38] LABS: INR 1.26 (0.8-3.0)
[2017-04-30 10:41] LABS: ANION GAP 9.8 MEQ/L (5-15); BLOOD UREA NITROGEN 41 mg/dL (9-20); CHLORIDE 101 mEq/L (98-107); Carbon Dioxide 26.1 mEq/L (21-32); Glucose 175 MG/DL (70-110); Potassium 4.5 mEq/L (3.5-5.1); SODIUM 132 mEq/L (136-145)
--- NOTE | 2017-04-30 11:12 | PROG NOTE ---
DATE: 04/30/17 HISTORY OF PRESENT ILLNESS: Ms. Cool is a 76 y/o woman who was evaluated by me last week after undergoing emergency abdominal surgery. Patient was noted with hypoxic respiratory failure requiring high flow O2. She underwent initially a right side followed by this week a left side thoracentesis after which patient's gas exchange did show improvement with improvement in respiratory pattern as well. She was transferred out to medical floor. However, this morning, a rapid response was called as routine labs showed Hgb of 5. According to nursing staff, patient has been having bloody stools for the last day. She is back in Intensive Care Unit currently receiving 2nd unit of PRBC along with being on Levophed at 5 mcg. PHYSICAL EXAMINATION: At the time of my evaluation, patient is arousable. She is able to answer. Repeat blood gases have shown improvement with current pH being 7.49, PCO2 37, PO2 81. Patient, other than routine post-op pain, voices no new acute complaints. She is currently afebrile. Heart rate 79, BP 121/42, and saturating 100%. HEENT: Normocephalic. Oral exam shows NECK: Supple. CVS: 1st and 2nd heart sounds normal, regular rhythm. RESPIRATORY: Shows diminished breath sounds. ABDOMEN: Status post surgery. Trace edema is noted. Hgb 5, Hct 15.6. Sodium 133, potassium 3.9, chloride 103, bicarb 26, glucose 212, BUN 41, creatinine 0.7. Chest x-ray showed small bilateral pleural effusions left greater than right. Possible left lower lobe atelectasis. ASSESSMENT: 1. THIS IS A 76 Y/O WOMAN ADMITTED AFTER UNDERGOING ABDOMINAL SURGERY WITH HYPOXIC RESPIRATORY FAILURE WHICH HAS REMAINED STABLE. 2. BILATERAL PLEURAL EFFUSIONS STATUS POST THORACENTESIS. 3. SEVERE ANEMIA WITH ACUTE BLOOD LOSS SECONDARY TO GASTROINTESTINAL BLEED, POSSIBLE PEPTIC ULCER DISEASE. Management per surgery. 4. GENERAL DEBILITATION. 5. CHRONIC OBSTRUCTIVE PULMONARY DISEASE. 6. STATUS POST APPENDECTOMY. RECOMMENDATIONS: 1. Patient is receiving transfusion. Continue pressors. Maintain hemodynamics. Monitor urinary output. Monitor H/H as call has been placed to surgery to reevaluate patient. Discussed personally with Dr. Edwards. 2. Discussed with patient regarding her desire to undergo surgery if such is deemed necessary by surgery. She is unable to decide at this point. However, will decide upon discussion with surgery. At this point, she is hemodynamically stable on pressors and hopefully if active bleeding stops, can be weaned. Her prognosis remains guarded at the best and I will available over the weekend. Please note that although I have been evaluating patient intermittently, I am well informed almost every day by nursing staff of patient's current situation and plan of care.
[2017-04-30] MEDS: Lanoxin 0.125MG TABLET PO SCH (11:28)
[2017-04-30] MEDS: solu-MEDROL 40 MG IV SCH (11:28)
[2017-04-30] MEDS: Nicoderm CQ 21 MG TOP SCH (11:29)
[2017-04-30] MEDS: PROTONIX 40 MG IV IV SCH (11:29)
[2017-04-30] MEDS: Lopressor 50 MG PO SCH (11:37)
[2017-04-30] MEDS: NO ANTICOAGULANTS OR BLOOD THINNERS/ASPIRIN MC SCH (11:42)
[2017-04-30 15:03] VITALS: BP 112/41; PULSE 84; O2SAT 97
== END 2017-04-30 13:15 | disposition short-term general hospital (02) | DRG 338 ==
LOC: ED 12:43 → ICU 20:00 → MED SURG 04-28 12:08 → ICU 04-30 00:40
PROVIDERS: ADMIT Internal Medicine; ATTEND Internal Medicine
PROC: 0DTJ0ZZ Resection of Appendix, Open Approach (ICD-10-PCS; principal; 2017-04-18)
PROC: 0W993ZX Drainage of Right Pleural Cavity, Percutaneous Approach, Diagnostic (ICD-10-PCS; 2017-04-18)
DX: K35.3 Acute appendicitis with localized peritonitis (principal); J96.01 Acute respiratory failure with hypoxia; A41.9 Sepsis, unspecified organism; R65.21 Severe sepsis with septic shock; I31.3 Pericardial effusion (noninflammatory); J90 Pleural effusion, not elsewhere classified; D62 Acute posthemorrhagic anemia; K56.7 Ileus, unspecified; J44.9 Chronic obstructive pulmonary disease, unspecified; K26.9 Duodenal ulcer, unspecified as acute or chronic, without hemorrhage or perforation; Z72.0 Tobacco use; I95.9 Hypotension, unspecified; Z90.49 Acquired absence of other specified parts of digestive tract; D64.9 Anemia, unspecified; R73.9 Hyperglycemia, unspecified; K25.9 Gastric ulcer, unspecified as acute or chronic, without hemorrhage or perforation; R00.0 Tachycardia, unspecified; E63.9 Nutritional deficiency, unspecified; I25.10 Atherosclerotic heart disease of native coronary artery without angina pectoris; I27.20 Pulmonary hypertension, unspecified; R41.0 Disorientation, unspecified; R53.81 Other malaise; Z85.118 Personal history of other malignant neoplasm of bronchus and lung; Z79.899 Other long term (current) drug therapy; I25.2 Old myocardial infarction; K29.80 Duodenitis without bleeding; K57.90 Diverticulosis of intestine, part unspecified, without perforation or abscess without bleeding; E78.00 Pure hypercholesterolemia, unspecified; M81.0 Age-related osteoporosis without current pathological fracture
CPT/HCPCS: 00840; 32557; 36000; 36415; 36430; 36569; 36600; 71010; 71020; 71260; 74176; 74177; 76937; 77001; 80048; 80053; 80162; 81000; 82040; 82042; 82272; 82375; 82607; 82803; 82805; 82962; 83036; 83540; 83550; 83605; 83615; 83690; 83735; 83880; 84132; 84134; 84155; 84157; 84443; 84484; 85007; 85014; 85018; 85025; 85027; 85610; 86850; 86900; 86901; 86922; 87040; 87070; 87086; 88304; 88307; 93005; 93041; 93306; 94002; 94003; 94640; 94667; 94668; 94760; 96360; 96361; 96365; 99100; 99140; 99285; C1769; J0330; J0360; J1160; J1450; J1642; J1815; J1940; J1956; J2060; J2270; J2370; J2405; J2704; J2920; J2930; J2997; J3010; J3475; J3480; L0625; P9016; P9047; A9270-GY

== ENCOUNTER 2017-10-18 15:26 | Observation (INO) | payer MEDICARE ==
--- NOTE | 2017-10-18 16:20 | ERPHSYRPT ---
- History of Present Illness Time Seen by Provider: 10/18/17 16:08 Source: patient Exam Limitations: no limitations Patient Subjective Stated Complaint: PT HER FOR PAIN TO GROIN WITH THE PAIN RADIATING DOWN BOTH LEGS WITH WEAKNESS, SHE STATES SHE IS BARLEY ABLE TO WALK SINCE WEDNESDAY, SHE ALSO HAS LUMBAR FRACTURE IN JULY FROM A FALL AND NOW HAS LOW BACK PAIN, Triage Nursing Assessment: PT ARRIVED VIA WC. ALERT, RESP EASY, SKIN W/D/P, ABD SOFT, NO EDEMA, PT TOOK ASSIST OF 2 TO GET FROM WC TO BED, PT VERY WEAK . PT HAS FEEDING TO IN PLACE TO ABD Physician History: 76-year-old white female arrives with complaint of pain to the groin and lumbar area radiating to both legs symptoms which is been markedly worse since 4 days ago. Patient does have a history of chronic pain she is on fentanyl patch as well as hydrocodone. She apparently has had a recent x-ray of her right hip which showed degenerative joint disease. Past medical history includes COPD, emphysema, lung cancer, ulcers, osteoarthritis, osteoporosis, anxiety, depression, tachycardia, G-tube patient apparently has had trouble from having an appendix removed in the past. Past surgical history includes tonsillectomy, appendectomy, , G-tube. Timing/Duration: day(s) (4 days) Severity: moderate Modifying Factors: Improves With: movement Associated Symptoms: weakness, No nausea, No vomiting, No abdominal pain, No shortness of breath, No heartburn, No diaphoresis, No cough, No chills, No chest pain, No fever, No headaches, No loss of appetite, No malaise, No rash, No syncope, No seizure Allergies/Adverse Reactions: Penicillins Allergy (Verified 10/18/17 15:56) Sulfa (Sulfonamide Antibiotics) Allergy (Verified 10/18/17 15:56) Home Medications: Alendronate Sodium 70 mg [Fosamax 70 MG] 70 mg PO Q7D@0600 04/18/17 [ History] Alprazolam 0.25 mg [xanAX 0.25 MG] 0.5 mg PO TID 04/18/17 [History] Aspirin 81 gm Chew [Baby Aspirin 81 mg Chew] 81 mg PO DAILY 04/18/17 [ History] Enalapril Maleate 10 mg [Vasotec 10 MG] 10 mg PO DAILY 04/18/17 [History] Metoprolol Succinate 50 mg [Toprol Xl 50 MG] 100 mg PO DAILY 04/18/17 [ History] Mirtazapine 30 mg [Remeron 30 mg] 15 mg PO DAILY 04/18/17 [History] PANTOPRAZOLE 40 mg Tablet [Protonix 40MG Tablet] 40 mg PO BID 04/18/17 [ History] Pravastatin Sodium [Pravachol] 40 mg PO DAILY 04/18/17 [History] Amlodipine Besylate 5 mg [Norvasc 5 mg] 5 mg DAILY 10/18/17 [History] Hydrocodone/Acetaminophen [[place] 5-325 Tablet] 1 ea QID 10/18/17 [History] Hx Tetanus, Diphtheria Vaccination/Date Given: No Hx Influenza Vaccination/Date Given: Yes Hx Pneumococcal Vaccination/Date Given: Yes Immunizations Up to Date: Yes - Review of Systems Constitutional: No Fever, No Chills Eyes: No Symptoms Ears, Nose, & Throat: No Symptoms Respiratory: No Cough, No Dyspnea Cardiac: No Chest Pain, No Edema, No Syncope Abdominal/Gastrointestinal: Other (pain in groin) Genitourinary Symptoms: No Dysuria Musculoskeletal: Back Pain, Other (low back pain radiating to pelvis and both hips) Skin: No Rash Neurological: No Dizziness, No Focal Weakness, No Sensory Changes Psychological: No Symptoms Endocrine: No Symptoms All Other Systems: Reviewed and Negative - Past Medical History Pertinent Past Medical History: Yes Cardiac History: Other Respiratory History: COPD, Emphysema, Lung Cancer Musculoskeletal History: Osteoarthritis, Osteoporosis GI Medical History: Ulcer Psycho-Social History: Anxiety, Depression Other Medical History: tachycardia ,G TUBE , MAR 2017 COMPLICATION FROM APPY BEING REMOVED - Past Surgical History Past Surgical History: Yes Gastrointestinal: Appendectomy Female Surgical History: Section Other Surgical History: G TUBE - Social History Smoking Status: Former smoker How long have you smoked: several yr Exposure to second hand smoke: No Drug Use: none Patient Lives Alone: No - Female History Hx Last Menstrual Period: POST Hx Now: No - Nursing Vital Signs Nursing Vital Signs: Initial Vital Signs Temperature 98.0 F 10/18/17 15:48 Pulse Rate 104 H 10/18/17 15:48 Respiratory Rate 18 10/18/17 15:48 Blood Pressure 105/52 10/18/17 15:48 O2 Sat by Pulse Oximetry 94 L 10/18/17 15:48 Pain Scale Pain Intensity 6 - Physical Exam General Appearance: mild distress Eye Exam: PERRL/EOMI, eyes nml inspection Ears, Nose, Throat Exam: normal ENT inspection, TMs normal, pharynx normal, moist mucous membranes Neck Exam: normal inspection, non-tender, supple, full range of motion Respiratory Exam: normal breath sounds, lungs clear, No respiratory distress Cardiovascular Exam: regular rate/rhythm, normal heart sounds, normal peripheral pulses Gastrointestinal/Abdomen Exam: soft, normal bowel sounds, No tenderness, No mass Back Exam: other (Low lumbar pain) Extremity Exam: other (pain with movement of both hips) Neurologic Exam: alert, oriented x 3, cooperative, normal mood/affect, nml cerebellar function, nml station & gait, sensation nml, No motor deficits Skin Exam: normal color, warm, dry, No rash Lymphatic Exam: No adenopathy SpO2 Interpretation: normal (94%) SpO2: 94 Oxygen Delivery: Room Air - Course Nursing assessment & vital signs reviewed: Yes - CT Exams Pelvis CT Interpretation: Tele-radiologist Report, Other (CT of the pelvis: Impression : 1. Right femoral head lytic lesion which could be indicative of metastasis. Correlation with prior studies as Unfortunately at the time of dictation no prior studies are available. 2. Findings suggestive of uterine fundus fibroid. Findings suspicious for a right ovarian cystic lesion. Again correlation with prior imaging is recommended. 3. Anterior abdominal wall midline small hernia, containing mesenteric fat in a loop of small bowel. Correlation with prior abdominal CT is recommended.) Lumbar Spine CT Interpretation: Tele-radiologist Report (CT lumbar spine: Impression: 1. Minimal anterior wedging of L1 which could be indicative of a subtle, likely remote compression deformity. This is associated with sclerotic changes of the superior endplate and a small Schmorl's nodes, which is indicative of superimpose degenerative changes. Further comparison with prior imaging is recommended. 2. Left adrenal gland nodule which was not reported on the CT study from April 18, 2017. Direct comparison with prior imaging is recommended to exclude the possibility of metastasis. Minimal degenerative changes of the lumbar spine.) Ordered Tests: Active Orders 24 hr Category Date Time Status LUMBAR SPINE W/O [CT] Stat Exams 10/18/17 16:15 Taken PELVIS WITHOUT CONTRAST [CT] Stat Exams 10/18/17 16:16 Taken CBC W DIFF Stat Lab 10/18/17 18:25 Completed CMP Stat Lab 10/18/17 18:25 Completed Lab/Rad Data: Laboratory Result Diagrams 10/18/17 18:25 10/18/17 18:25 Laboratory Results 10/18/17 10/18/17 Range/Units 18:25 18:25 WBC 8.6 (4.0-10.5) K/mm3 RBC 4.32 (4.1-5.4) M/mm3 Hgb 11.2 L (12.0-16.0) gm/dl Hct 34.3 L (35-47) % MCV 79.4 (78-100) fl MCH 25.9 L (26-32) pg MCHC 32.7 (32-36) g/dl RDW 16.2 H (11.5-14.0) % Plt Count 297 (150-450) K/mm3 MPV 9.1 (6-9.5) fl Gran % 66.0 (36.0-66.0) % Eos # (Auto) 0.01 (0-0.5) Absolute Lymphs (auto) 1.91 (1.0-4.6) Absolute Monos (auto) 0.98 (0.0-1.3) Lymphocytes % 22.3 L (24.0-44.0) % Monocytes % 11.5 (0.0-12.0) % Eosinophils % 0.1 (0.00-5.0) % Basophils % 0.1 (0.0-0.4) % Absolute Granulocytes 5.64 (1.4-6.9) Basophils # 0.01 (0-0.4) Sodium 136 L (137-145) mmol/L Potassium 5.1 (3.5-5.1) mmol/L Chloride 101 (98-107) mmol/L Carbon Dioxide 29 (22-30) mmol/L Anion Gap 11.4 (5-15) MEQ/L BUN 20 H (7-17) mg/dL Creatinine 0.71 (0.52-1.04) mg/dL Estimated GFR > 60.0 ML/MIN Glucose 110 H (74-106) mg/dL Calcium 9.9 (8.4-10.2) mg/dL Total Bilirubin 0.20 (0.2-1.3) mg/dL AST 26 (14-36) U/L ALT 21 (0-35) U/L Alkaline Phosphatase 139 H (38-126) U/L Serum Total Protein 7.0 (6.3-8.2) g/dL Albumin 3.9 (3.5-5.0) g/dL - Progress Progress: improved Progress Note: 10/18/17 18:12 76-year-old white female complains of back pain low lumbar region radiating to her pelvis and right hip. She states that she had fallen in the past and had thought she might of had a compression fracture. However since she states that she's had severe pain and is unable to weight-bear on the right hip. She states she has severe pain with attempts at ambulation in spite of fentanyl patch and hydrocodone Patient appears to be a comfortable here in the emergency room however fentanyl patches in place in and she is not standing on her right hip .. CT of the patient's lumbar spine is remarkable for anterior wedging of L1 indicative of a possible remote compression deformity there is right changes of superior and place and small Schmorl's nodes indicative of superimposed degenerative changes there is left adrenal gland large nodule which was not reported on prior CT study dated 04/18/17 And there are minimal degenerative changes of the lumbar spine Patient's CT of the pelvis is remarkable for a right femoral head lytic lesion which could be indicative of metastases also uterine fundus fibroid and right ovarian cystic lesion there is also an anterior abdominal wall midline small hernia containing mesenteric fat in the loop of small bowel patient does not show signs of a entrapment. I've discussed the patient's case with Dr. Aiken who is automation technologist for Dr. perez and inquired about possible placement on observation for pain control and further evaluation. He requests that we go ahead and obtain CBC CMP to rule out metabolic signs such as hypercalcemia or anemia. These have been ordered. 10/18/17 18:53 Patient's CBC, CMP essentially normal I contacted Dr. Andrew Aiken will place patient on observation for pain control continue her fentanyl patch Write for morphine for breakthrough pain - Departure Time of Disposition: 19:00 Departure Disposition: Observation Clinical Impression: Right hip pain, lytic lesion right hip, nodule left adrenal gland Back pain Qualifiers: Back pain location: low back pain Chronicity: acute Back pain laterality: unspecified Sciatica presence: unspecified whether sciatica present Qualified Code(s): M54.5 - Low back pain Condition: Fair Critical Care Time: No Referrals: SAMMY PEREZ [Primary Care Provider] -
[2017-10-18 18:31] LABS: BASOPHIL % 0.1 % (0.0-0.4); Basophil (Absolute #) 0.01 (0-0.4); Eosinophil % 0.1 % (0.00-5.0); Eosinophil (Absolute #) 0.01 (0-0.5); Granulocyte Absolute (ANC) 5.64 (1.4-6.9); Hematocrit 34.3 % (35-47); Hemoglobin 11.2 gm/dl (12.0-16.0); Lymphocyte (Absolute #) 1.91 (1.0-4.6); Lymphocytes % 22.3 % (24.0-44.0); Mean Cell Volume 79.4 fl (78-100); Mean Corpuscular Hemoglobin 25.9 pg (26-32); Mean Corpuscular Hgb Concent. 32.7 g/dl (32-36); Mean Platelet Volume 9.1 fl (6-9.5); Monocyte (Absolute #) 0.98 (0.0-1.3); Monocytes % 11.5 % (0.0-12.0); Platelet Count 297 K/mm3 (150-450); Red Blood Count 4.32 M/mm3 (4.1-5.4); Red Cell Distribution Width 16.2 % (11.5-14.0); White Blood Count 8.6 K/mm3 (4.0-10.5)
[2017-10-18 18:48] LABS: ALBUMIN 3.9 g/dL (3.5-5.0); ALKALINE PHOSPHATASE 139 U/L (38-126); ANION GAP 11.4 MEQ/L (5-15); BLOOD UREA NITROGEN 20 mg/dL (7-17); CHLORIDE 101 mmol/L (98-107); Calcium 9.9 mg/dL (8.4-10.2); Carbon Dioxide 29 mmol/L (22-30); Creatinine 1 0.71 mg/dL (0.52-1.04); Glucose 110 mg/dL (74-106); Potassium 5.1 mmol/L (3.5-5.1); SGOT/AST 26 U/L (14-36); SGPT/ALT 21 U/L (0-35); SODIUM 136 mmol/L (137-145)
[2017-10-18] MEDS ORDERED: Zofran 4 MG/2 ML VIAL IV PRN (19:37)
[2017-10-18] MEDS ORDERED: DUONEB 0.5-3 MG/3 ml Neb IH PRN (19:37)
--- NOTE | 2017-10-18 19:50 | XRAY ---
Indication: Low back pain radiating to both hips. No known injury. Multiple contiguous axial images obtained through the lumbar spine. Sagittal and coronal reformatted images obtained. Comparison: None Age related osteopenia. Remote appearing L1 superior endplate fracture with approximately 25% height loss. Axial images negative for acute fracture, suspicious bone lesions, or spinal canal stenosis. Multilevel broad-based disc bulge, greatest at the L2-L3 level. No obvious disc herniation. Facets are symmetric with moderate bilateral L5-S1 degenerative facet arthropathy. Sagittal and coronal reformatted images images normal lumbar alignment with minimal L1-L2 and L4-5 disc space narrowing. No subluxation. Elsewhere partially visualized PEG tube with balloon tip in the stomach lumen. Moderate aortoiliac calcifications without AAA and 1 cm left adrenal gland mass. Impression: 1. Osteopenia with remote appearing L1 superior endplate fracture. 2. No acute fracture or subluxation. 3. Multilevel degenerative disc disease better evaluated with outpatient MRI if clinically warranted. 4. Left adrenal gland mass better detailed on CT abdomen April 25, 2017. Comment: Preliminary interpretation was made by [facility]. No critical discrepancy. CTDI 105.28
--- NOTE | 2017-10-18 20:11 | XRAY ---
Indication: Low back pain radiating to both hips. No known injury. Multiple contiguous axial images obtained through the pelvis with special attention to the osseous structures. Comparison: April 25, 2017. CT lumbar spine reported separately. Stable age-related osteopenia and minimal degenerative changes of both hips. No acute fracture or dislocation. New 2.4 cm right subcapital lytic lesion worrisome for metastasis. Visualized noncontrasted soft tissues demonstrates stable fundal uterine fibroid, mild sigmoid diverticulosis, and mild aortoiliac calcifications. New small fatty umbilical hernia and new small infraumbilical midline ventral hernia with loop of small bowel herniating. Impression: 1. New right femoral subcapital lytic lesion worrisome for metastasis. 2. Negative acute fracture/dislocation. 3. Stable osteopenia and degenerative changes of both hips. 4. New midline ventral hernias as detailed. 5. Stable uterine fibroid and sigmoid diverticulosis. Comment: Preliminary interpretation was made by [facility]. No discrepancy. CTDI 18.62
[2017-10-18] MEDS: MORPHINE SULFATE 2 MG INJ IV PRN (21:08)
[2017-10-18] MEDS ORDERED: xanAX 0.5 MG PO ONE (22:24)
[2017-10-18] MEDS ORDERED: NORCO 5/325 MG PO ONE (22:30)
[2017-10-18] MEDS ORDERED: Lopressor 50 MG PO ONE (22:31)
[2017-10-18] MEDS ORDERED: xanAX 0.5 MG ONE (22:35)
[2017-10-18] MEDS ORDERED: Lopressor 50 MG ONE (22:37)
[2017-10-19] MEDS: MORPHINE SULFATE 2 MG INJ IV PRN (03:52)
[2017-10-19] MEDS ORDERED: NORCO 5/325 MG PO ONE (05:07)
[2017-10-19 06:09] LABS: BASOPHIL % 0.3 % (0.0-0.4); Basophil (Absolute #) 0.02 (0-0.4); Eosinophil % 0.4 % (0.00-5.0); Eosinophil (Absolute #) 0.03 (0-0.5); Granulocyte Absolute (ANC) 4.87 (1.4-6.9); Granulocytes % 64.7 % (36.0-66.0); Hematocrit 34.9 % (35-47); Hemoglobin 11.1 gm/dl (12.0-16.0); Lymphocyte (Absolute #) 1.66 (1.0-4.6); Lymphocytes % 22.1 % (24.0-44.0); Mean Cell Volume 79.7 fl (78-100); Mean Corpuscular Hemoglobin 25.3 pg (26-32); Mean Corpuscular Hgb Concent. 31.8 g/dl (32-36); Mean Platelet Volume 9.3 fl (6-9.5); Monocyte (Absolute #) 0.94 (0.0-1.3); Monocytes % 12.5 % (0.0-12.0); Platelet Count 299 K/mm3 (150-450); Red Blood Count 4.38 M/mm3 (4.1-5.4); Red Cell Distribution Width 16.2 % (11.5-14.0); White Blood Count 7.5 K/mm3 (4.0-10.5)
[2017-10-19 06:28] LABS: ALBUMIN 3.7 g/dL (3.5-5.0); ALKALINE PHOSPHATASE 130 U/L (38-126); ANION GAP 12.1 MEQ/L (5-15); BLOOD UREA NITROGEN 16 mg/dL (7-17); CHLORIDE 100 mmol/L (98-107); Calcium 9.8 mg/dL (8.4-10.2); Carbon Dioxide 28 mmol/L (22-30); Creatinine 1 0.68 mg/dL (0.52-1.04); Glucose 116 mg/dL (74-106); Potassium 4.7 mmol/L (3.5-5.1); SGOT/AST 24 U/L (14-36); SGPT/ALT 18 U/L (0-35); SODIUM 135 mmol/L (137-145); Total Protein 6.7 g/dL (6.3-8.2)
[2017-10-19] MEDS ORDERED: NORCO 5/325 MG PO SCH (10:00)
[2017-10-19] MEDS ORDERED: REMERON 30 MG PO SCH ×2 (10:00→22:00)
[2017-10-19] MEDS ORDERED: NON-FORMULARY ITEM (Pravastatin Sodium [Pravachol] 40 MG) PO SCH (10:00)
[2017-10-19] MEDS: Protonix 40MG Tablet PO SCH (10:06)
[2017-10-19] MEDS: ECOTRIN 81 MG PO SCH (10:06)
[2017-10-19] MEDS: ZOCOR 20MG PO SCH (10:06)
[2017-10-19] MEDS: xanAX 0.5 MG PO SCH ×3 (10:07→21:30)
[2017-10-19] MEDS: Lopressor 50 MG PO SCH ×2 (10:07→21:30)
[2017-10-19] MEDS: NORCO 5/325 MG PO SCH ×4 (10:07→17:20)
--- NOTE | 2017-10-19 11:50 | HP ---
HISTORY OF PRESENT ILLNESS: This is a 76 year-old patient with a known history of metastatic lung cancer. She has in the past this in her left hip. She has an upcoming appointment this Wednesday with radiation oncologist that she is having pain in the left hip this was scheduled after I talked to her oncologist in [place], Dr. Jarett Black. The patient then developed over the weekend trouble moving her right leg. She states she was unable to move it all starting on Wednesday. It was so bad that her daughter was having to help her lift her leg up. She also had pain with just lying yesterday in the evening on her left hip. She was having trouble ambulating due to not being able to lift up her right leg and so she was brought to the emergency department where she was admitted for pain control and further evaluation. REVIEW OF SYSTEMS: The patient denies any constipation. No diarrhea. No dyspnea. No chest pain. She reports her pain was somewhat controlled last night in her legs. She continues to use her fentanyl patch and recently I added hydrocodone as needed for the pain. She also had IV morphine last night. PAST MEDICAL HISTORY: History of GI bleed with anemia and blood loss April 2017. History of acute respiratory failure with hypoxia, pericardial effusion, bilateral pleural effusion, chronic obstructive pulmonary disease, hyperglycemia, anxiety, left adrenal mass on CT April 2017 noncalcified. Metastatic lung cancer. Hyperlipidemia, hypertension. PAST SURGICAL HISTORY: section x2. G-tube placement May 2017. History of left thoracentesis April 2017. Right thoracentesis April 2017. Appendectomy. Colon resection April 2017. MEDICATIONS: Alprazolam 0.5 mg p.o. t.i.d. for anxiety, amlodipine 5 mg daily, aspirin 81 mg daily, Enalapril 20 mg daily, Fentanyl patch 12 mcg/hour, hydrocodone/acetaminophen 5/325 mg 1 tablet p.o. every 8 hours, metoprolol tartrate 100 mg p.o. b.i.d., Remeron 15 mg p.o. daily, Zofran 4 mg p.o. every six hours as needed for nausea, pantoprazole 40 mg p.o. daily, pravastatin 40 mg p.o. daily. ALLERGIES: PENICILLIN, SULFA. SOCIAL HISTORY: She used to smoke and quit in 2010. No alcohol use. She is currently staying with her daughter and her granddaughter is helping with her care as well. FAMILY HISTORY: Her mother had Alzheimer's disease. Her father had leukemia. She has a daughter with rheumatoid arthritis. PHYSICAL EXAMINATION: VITAL SIGNS: Temperature current 98F, temperature max 98F, heart rate 75 to 114, respiratory rate 16 to 20, blood pressure 92 to 140 over 42 to 72, weight 54.1 kg. Oxygen saturation 94 to 98% on 2 liters to room air. GENERAL: The patient is lying in bed a pleasant talkative lady in no acute distress. Her granddaughter is at the bedside. CVS: She has a regular rate and rhythm. No murmurs, gallops or rubs. CHEST: Clear to auscultation bilaterally. No crackles or wheezes. ABDOMEN: Soft, nontender, nondistended with normal bowel sounds. EXTREMITIES: Her strength is 5/5 in her left lower leg and foot, 4/5 in her foot on the right side. She is unable to raise her right leg off the bed. She has tenderness to external rotation. On hip roll of her right hip mild tenderness of the same to her left hip. No clubbing, cyanosis or edema. SKIN: Warm, dry and intact without rashes. LABORATORY DATA AND TESTS: She had a CT scan of her lumbar spine in the emergency room which revealed the left adrenal mass, degenerative disc disease, no acute fracture, remote appearing L1 superior endplate fracture. She also had CT scan of her pelvis that revealed a new right femoral subcapital lytic lesion worrisome for metastases. It measured 2.4 cm, negative for acute fracture or dislocation, stable osteopenia, new midline ventral hernia, stable intrauterine fibroid and sigmoid diverticulosis. Labs: Her CMP revealed a sodium 135, alkaline phosphatase 130. CBC hemoglobin 11.1. ASSESSMENT AND PLAN: 1) RIGHT HIP PAIN MOST LIKELY DUE TO LUNG METASTASIS: I have placed a call in to her oncologist, Dr. Carmen Black and waiting for return call. She is already scheduled to see the radiation oncologist this Wednesday concerning her left hip and may need to be transferred to [facility] where she can have this done as an inpatient sooner. 2) GAIT INSTABILITY: It seems to be due to pain in both of her hips. Will continue pain control with Fentanyl patch and hydrocodone. She also has IV morphine ordered as needed. 3) METASTATIC LUNG CANCER: She continues to follow with Dr. Black as an outpatient and has an appointment on 11/01/2017. 4) HYPERTENSION: I am going to continue with her metoprolol but hold her amlodipine and Enalapril as her blood pressure is on the low end of normal. 5) HISTORY OF GI BLEED: Will continue with pantoprazole. 6) ANXIETY: Will continue with Alprazolam as scheduled.
[2017-10-19] MEDS: MORPHINE SULFATE 4 MG INJ IV PRN ×3 (12:51→17:32)
[2017-10-19] MEDS: ZOFRAN ODT 4 MG PO SCH ×2 (13:43→18:24)
[2017-10-19] MEDS: NORCO 5/325 MG PO PRN (21:31)
[2017-10-19] MEDS ORDERED: xanAX 0.5 MG PO ONE (22:24)
[2017-10-19] MEDS ORDERED: Lopressor 50 MG PO ONE (22:31)
[2017-10-20] MEDS: ZOFRAN ODT 4 MG PO SCH ×4 (00:38→18:20)
[2017-10-20] MEDS: MORPHINE SULFATE 4 MG INJ IV PRN ×3 (03:14→17:33)
[2017-10-20] MEDS: NORCO 5/325 MG PO PRN ×3 (04:37→15:33)
--- NOTE | 2017-10-20 08:45 | PCM.NOTE ---
Date and Time: 10/20/17 0840 Subjective Assessment: Patient reports more continuous pain in her left hip but states she has trouble with her right leg as she cannot move it and has to physically lift it up with her hands. She reports the hydrocodone helps with the pain. She also continues to have the fentanyl patch in place. I spoke with her oncologist's nurse yesterday and they are unable to move up her appointment with radiation oncology and stated even if she transferred, they would not be able to do radiation to try to help with the hip problems any sooner. Her oncologist is Dr. Veronica Black in [facility] [place]. - Review of Systems Constitutional: No Symptoms Eyes: No Symptoms Ears, Nose, & Throat: No Symptoms Respiratory: No Symptoms Cardiac: No Symptoms Abdominal/Gastrointestinal: No Symptoms Genitourinary Symptoms: No Symptoms Musculoskeletal: Other (weakness of right leg, pain in both hips; no weakness in arms bilat, no speech problems) Skin: No Symptoms Objective Exam General Appearance: no apparent distress, alert Neurologic Exam: alert, cooperative, normal mood/affect Skin Exam: normal color, warm, dry Respiratory Exam: normal breath sounds, lungs clear, No crackles/rales, No rhonchi, No wheezing Cardiovascular Exam: regular rate/rhythm, normal heart sounds, No murmur, No friction rub, No gallop Gastrointestinal/Abdomen Exam: soft, normal bowel sounds, other (G-tube in place ), No tenderness, No distention, No mass Extremity Exam: other (strength 4/5 with dorsiflexion in feet bilat, strength 1/ 5 in right thigh and 5/5 in left thigh, pain with log roll of each leg, pain with external rotation of right hip and no pain with external rotation of left hip. Strength 5/5 in arms and hands and shoulders bilat; normal speech.) OBJECTIVE DATA Vital Signs: Vital Signs - 24 hr Temp Pulse Resp BP Pulse Ox 10/20/17 07:24 95 H 16 94 L 10/20/17 07:07 98.2 F 94 H 16 131/63 95 10/20/17 04:00 98 F 92 H 23 120/58 94 L 10/20/17 00:00 97.7 F 80 20 116/56 94 L 10/19/17 20:05 93 H 22 94 L 10/19/17 20:00 98.6 F 92 H 20 116/53 92 L 10/19/17 16:00 98 F 87 16 109/50 95 10/19/17 12:00 97.8 F 83 16 105/47 94 L Oxygen-Last 24 hours O2 Percentage 2 Liters = 28% O2 Percentage 2 Liters = 28% O2 Percentage 2 Liters = 28% O2 Percentage 2 Liters = 28% O2 Percentage 2 Liters = 28% O2 Percentage 2 Liters = 28% Pain Assessment - Last Documented Pain Intensity 6 Pain Scale Used 0-10 Pain Scale Intake and Output: Intake & Output 10/18/17 10/19/17 10/20/17 10/21/17 06:59 06:59 06:59 06:59 Intake Total 160 2037 857 Output Total 500 2340 500 Balance -340 -303 357 Weight 54 kg 55.5 kg Radiology Exams: Radiology Procedures Category Date Time Status HEAD WITHOUT CONTRAST [CT] Routine Exams 10/20/17 08:38 Ordered Assessment/Plan (1) Right hip pain Current Visit: Yes Status: Acute Assessment & Plan: Continue with pain control. She has follow up with her oncologist and radiation oncology coming up. Code(s): M25.551 - PAIN IN RIGHT HIP (2) Left hip pain Current Visit: Yes Status: Acute Code(s): M25.552 - PAIN IN LEFT HIP (3) Metastatic lung cancer (metastasis from lung to other site) Current Visit: Yes Status: Acute Code(s): C34.90 - MALIGNANT NEOPLASM OF UNSP PART OF UNSP BRONCHUS OR LUNG (4) Right leg weakness Current Visit: Yes Status: Acute Assessment & Plan: Will check head CT today to make sure there is not a brain lesion causing her weakness. It may be related to pain or loss of function due to the lytic lesion seen on CT scan of her right hip. Code(s): R29.898 - OTH SYMPTOMS AND SIGNS INVOLVING THE MUSCULOSKELETAL SYSTEM (5) Gait instability Current Visit: Yes Status: Acute Assessment & Plan: PT evaluation. Code(s): R26.81 - UNSTEADINESS ON FEET (6) Hypertension Current Visit: Yes Status: Acute Assessment & Plan: Well controlled on her current medication. Code(s): I10 - ESSENTIAL (PRIMARY) HYPERTENSION (7) History of GI bleed Current Visit: Yes Status: Acute Assessment & Plan: Avoid NSAIDS due to hx of GI bleed. Code(s): Z87.19 - PERSONAL HISTORY OF OTHER DISEASES OF THE DIGESTIVE SYSTEM (8) Anxiety Current Visit: No Status: Acute Code(s): F41.9 - ANXIETY DISORDER, UNSPECIFIED
[2017-10-20] MEDS: Lopressor 50 MG PO SCH (09:01)
[2017-10-20] MEDS: xanAX 0.5 MG PO SCH ×2 (09:01→14:39)
[2017-10-20] MEDS: ZOCOR 20MG PO SCH (09:01)
[2017-10-20] MEDS: Protonix 40MG Tablet PO SCH (09:01)
[2017-10-20] MEDS: ECOTRIN 81 MG PO SCH (09:01)
--- NOTE | 2017-10-20 10:24 | XRAY ---
Exam: CT of the head without IV contrast from 10/20/2017. CTDI: 66.80 Comparison: None. Indication: 76-year-old female with right-sided leg weakness. Technique: Non-IV contrast axial images were obtained through the brain. Reconstructed coronal and sagittal images were created and reviewed. The ventricles appear within normal limits of size for the patient's age. No focal mass effect or midline shift is seen. No acute intracranial parenchymal hemorrhage, subarachnoid hemorrhage, or abnormal extra-axial hemorrhage is seen. I see no low attenuation lesion to suggest an acute territorial infarct. The [place] matter/white matter junctions appear unremarkable. The cortical sulci and basilar cisterns appear unremarkable. Mild atherosclerotic vascular calcification is seen within both distal vertebral arteries. The calvarium of the skull appears intact. No fracture of the calvarium is seen. There are bilateral moreno bullosa within the middle nasal turbinates. Slight convexity of the nasal septum toward the left is seen. I note some minimal nonspecific mucosal thickening within the anterior aspect of the ethmoid sinuses. No paranasal sinus air-fluid levels are seen. The mastoid air cells appear unremarkable. Impression: 1. I see no evidence of acute intracranial bleed or other acute intracranial process. 2. Minimal nonspecific mucosal thickening is seen within the anterior aspect of the ethmoid sinuses. No air-fluid levels are seen within the paranasal sinuses.
--- NOTE | 2017-10-20 14:13 | PCM.DCORD ---
- Discharge Discharge Date: 10/20/17 Disposition: DC TO [facility] Condition: Fair Prescriptions: New Hydrocodone/Acetaminophen [Hydrocodone-Acetamin 5-325 mg] 2 tab PO Q6H PRN # 1 tablet MDD 8 PRN Reason: Pain Continue Alprazolam 0.25 mg [xanAX 0.25 MG] 0.5 mg PO TID Mirtazapine 30 mg [Remeron 30 mg] 15 mg PO DAILY Pravastatin Sodium [Pravachol] 40 mg PO DAILY Aspirin 81 gm Chew [Baby Aspirin 81 mg Chew] 81 mg PO DAILY PANTOPRAZOLE 40 mg Tablet [Protonix 40MG Tablet] 40 mg PO DAILY fentaNYL [Fentanyl] 1 each TD Q72H Metoprolol Tartrate 50 mg [Lopressor 50 MG] 100 mg PO BID Ondansetron [Ondansetron Odt] 4 mg PO Q6H Discontinued Enalapril Maleate 10 mg [Vasotec 10 MG] 20 mg PO DAILY Hydrocodone/Acetaminophen [[place] 5-325 Tablet] 1 ea QID Amlodipine Besylate 5 mg [Norvasc 5 mg] 5 mg DAILY Additional Instructions: Keep appointment scheduled with Radiation Oncologist. Keep appointment with Oncologist. Follow up with: SAMMY PEREZ [Primary Care Provider] - 1 Week
[2017-10-20 16:32] VITALS: BP 122/56; PULSE 100; O2SAT 92
== END 2017-10-20 18:25 ==
LOC: ED 15:26 → MED SURG 19:33
PROVIDERS: ADMIT Internal Medicine; ATTEND Internal Medicine
DX: M25.551 Pain in right hip (principal); M25.552 Pain in left hip; C34.90 Malignant neoplasm of unspecified part of unspecified bronchus or lung; I10 Essential (primary) hypertension; F41.9 Anxiety disorder, unspecified; R29.898 Other symptoms and signs involving the musculoskeletal system; R26.81 Unsteadiness on feet; Z87.19 Personal history of other diseases of the digestive system; Z79.899 Other long term (current) drug therapy
CPT/HCPCS: 36415; 70450; 72131; 72192; 80053; 85025; 93268; 94760; 99285; J2270; Q0162; A9270-GY; G0378